=== PATIENT | female | born 1955 | race Caucasian/White ===

== ENCOUNTER → 2016-08-07 | Outpatient (CLI) | payer OTHER ==
[~2016-08-07] MED LIST: AMLO5TAB2 PO; CARVEDILOL
--- OUTSIDE RECORDS SUMMARY | 2016-08-07 11:41 | XMS REPORT | Continuity of Care Document ---
Author Author [facility] Organization [facility] Address Unknown Phone Unavailable Care Team Providers Care Roving Tester Laboratory Name Role Phone Jayashree Howe PCP [phone] Source Comments Some departments are not documenting in the electronic medical record. If you do not see the information that you expected, contact Release of Information in the Health Information Management department at [phone] for further assistance in locating additional records.[facility] Active Allergies and Adverse Reactions No Known [...] Encounters Date Type Specialty Providers Description 08/28/2016 [facility] Aniyah Pearson MD EV (esophageal varices) Encounter [...] Taken Blood Pressure 151/99 06/14/2016 8:19 AM WOOD TECHNOLOGIST Pulse 113 06/14/2016 8:19 AM WOOD TECHNOLOGIST Temperature 36.9 C (98.4 F) 06/14/2016 8:19 AM WOOD TECHNOLOGIST Respiratory Rate 16 06/14/2016 8:19 AM WOOD TECHNOLOGIST Height 1.676 m (5' 6") 06/14/2016 8:19 AM WOOD TECHNOLOGIST Weight 58.242 kg (128 lb 6.4 oz) 06/14/2016 8:19 AM WOOD TECHNOLOGIST Body Mass Index 20.73 06/14/2016 8:19 AM WOOD TECHNOLOGIST Oxygen Saturation 93% 06/14/2016 8:19 AM WOOD TECHNOLOGIST Plan of Care Date Type Specialty Providers Description 08/28/2016 Surgery Sandoval Domínguez MD ESOPHAGOGASTRODUODENOSCOP [address] [place] [address] [phone] (Fax) 12/27/2016 Appointment Hepatology Aniyah Pearson MD [address] [place] [address] [phone] (Fax) Health Maintenance Due Date Last Done Comments Physical (Comprehensive) 1962 Exam Pertussis Vaccine 1965 Tetanus Vaccine 12/07/1971 Cervical Cancer Screening 12/07/1975 Breast Cancer Screening 1994 Colorectal Cancer 2004 Screening Shingles Vaccine 2014 Influenza Vaccine 03/30/2016 Results from Last 3 Months Not on file
--- NOTE | 2016-08-07 15:32 | Diagnostic Imaging Report ---
PROCEDURE: CT abdomen with contrast only. TECHNIQUE: Multiple contiguous axial images were obtained through the abdomen after the administration of intravenous contrast. INDICATION: Chronic hepatitis C with cirrhosis. Lesions seen on 04/11/2016 exam. 100 mL of Omnipaque 350 is administered intravenously. FINDINGS: The lung bases appear unremarkable. Again seen are anterior subcapsular enhancing lesions up to 1.9 cm in segment 8 and 1.2 cm in segment 2, both larger and more prominent compared to 04/11/2016 exam when corresponding measurements were 1.3 and 1.1 cm. These however demonstrate no definite contrast washout and therefore do not have the typical diagnostic criteria for hepatocellular carcinoma based on CT scan. No new enhancing lesion is identified. Again seen is nodular cirrhotic liver. Multiple small gallstones with no evidence of cholecystitis is seen. The spleen is moderately enlarged measuring 15.6 x 5.3 x 9 cm. The pancreas and the adrenal glands appear unremarkable. There are prominent periesophageal varices seen. The portal vein is patent. The abdominal aorta is normal in caliber. No periaortic significantly enlarged lymph nodes are noted. The kidneys have symmetric enhancement and contrast excretion. No hydronephrosis. There is no ascites. No fluid collection in the abdomen is seen. The lumbar spine demonstrates left convexity scoliosis and there are degenerative changes at L5/S1 and at the SI joints bilaterally. IMPRESSION: 1. Hypervascular lesions in segment 2 and segment 8 in anterior subcapsular location appear larger compared to March 2016 exam. These lesions are concerning for HCC, although the CT findings are not characteristic. Correlation with MRI of the liver could be helpful. Also if the AFP is significantly elevated or is rising, then HCC is very likely. 2. Manifestations of cirrhosis, splenomegaly and paraesophageal varices. No ascites. 3. Gallstones. Report faxed to Dr. Katie Wright at 3:25 p.m. 08/07/2016/cb Dictated by: Dictated on workstation # [id number]
== END ==
LOC: RAD 11:38
PROVIDERS: ATTEND Internal Medicine Hematology & Oncology
DX: B18.2 Chronic viral hepatitis C (principal)
CPT/HCPCS: 74160

== ENCOUNTER 2016-08-25 12:06 | Emergency (ER) | payer OTHER ==
[~2016-08-25] VITALS: Ht 167.6 cm; Wt 59.9 kg
--- OUTSIDE RECORDS SUMMARY | 2016-08-25 12:18 | XMS REPORT | Continuity of Care Document ---
Author Author [facility] Organization [facility] Address Unknown Phone Unavailable Care Team Providers Care Ginner Helper Name Role Phone Jayashree Howe PCP [phone] Source Comments Some departments are not documenting in the electronic medical record. If you do not see the information that you expected, contact Release of Information in the Health Information Management department at [phone] for further assistance in locating additional records.[facility] Active Allergies and Adverse Reactions No [...] Encounters Date Type Specialty Providers Description 08/28/2016 [facility] Aniyah Pearson MD EV (esophageal varices) Encounter (HCC) 08/23/2016 Telephone Hepatology Aniyah Pearson MD Procedure 06/14/2016 Office Visit Hepatology Aniyah Pearson MD Essential hypertension (Primary Dx) 06/14/2016 Prep for Case Hepatology Aniyah Pearson MD 06/12/2016 Telephone HepatAniyah Yang MD Patient Reminder Call 06/07/2016 Telephone Hepatology Aniyah Pearsno MD Patient Reminder Call Immunizations Name Dates [...] Taken Blood Pressure 151/99 06/14/2016 8:19 AM REHABILITATION PHYSICIAN Pulse 113 06/14/2016 8:19 AM REHABILITATION PHYSICIAN Temperature 36.9 C (98.4 F) 06/14/2016 8:19 AM REHABILITATION PHYSICIAN Respiratory Rate 16 06/14/2016 8:19 AM REHABILITATION PHYSICIAN Height 1.676 m (5' 6") 06/14/2016 8:19 AM REHABILITATION PHYSICIAN Weight 58.242 kg (128 lb 6.4 oz) 06/14/2016 8:19 AM REHABILITATION PHYSICIAN Body Mass Index 20.73 06/14/2016 8:19 AM REHABILITATION PHYSICIAN Oxygen Saturation 93% 06/14/2016 8:19 AM REHABILITATION PHYSICIAN Plan of Care Date Type Specialty Providers Description 08/28/2016 Surgery Sandoval Domínguez MD ESOPHAGOGASTRODUODENOSCOP [address] [place] [address] [phone] (Fax) 12/27/2016 Appointment Hepatology Aniyah Pearson MD [address] [place] [address] [phone] (Fax) Health Maintenance Due Date Last Done Comments Physical (Comprehensive) 1962 Exam Pertussis Vaccine 1965 Tetanus Vaccine 12/07/1971 Cervical Cancer Screening 12/07/1975 Breast Cancer Screening 1994 Colorectal Cancer 2004 Screening Shingles Vaccine 2014 Influenza Vaccine 03/30/2016 Results from Last 3 Months Not on file
[2016-08-25] MEDS ORDERED: CARVEDILOL (12:20)
--- NOTE | 2016-08-25 12:21 | ED Cardiac General ---
History of Present Illness General Chief Complaint: Cardiac/General Problems Stated Complaint: ELEV BP Source: patient Exam Limitations: no limitations History of Present Illness Time seen by provider: 12:10 Initial Comments Here with report of high blood pressure noted at her cancer doctor visit today. She has hepatitis C and is being evaluated for possible biopsy. She was sent here for further evaluation related to the high blood pressure. Denies chest pain or breathing problems. Denies dizziness. She does feel some heart palpitations. Timing/Duration: 1-3 hours Severity: moderate Location: other (has significant chest pain) Prior CP/Workup: no prior chest pain, no prior cardiac workup Modifying Factors: improves with rest NTG SL ENTRY LEVEL FINANCIAL ANALYST: No ASA po ENTRY LEVEL FINANCIAL ANALYST: No Associated Systoms: No Chest Pain, No Cough, No Fever/Chills, No Nausea/ Vomiting, No Shortness of Air, No Weakness Allergies and Home Medications Allergies Coded Allergies: No Allergy Information Available (Unverified , 04/11/16) Home Medications (Reported) Review of Systems Constitutional: see HPINo chills, No fever EENTM: No Symptoms Reported Respiratory: No Symptoms Reported Cardiovascular: See HPIDenies Chest Pain, Palpitations Gastrointestinal: No Symptoms Reported Genitourinary: No Symptoms Reported Musculoskeletal: no symptoms reported Skin: no symptoms reported Psychiatric/Neurological: No Symptoms Reported Past Kelxcww-Zouogr-Qocdmp Hx Patient Social History Alcohol Use: Past History Recreational Drug Use: No Smoking Status: Never a Smoker Recent Foreign Travel: No Contact w/Someone Who Travel: No Recent Hopitalizations: No Physical Abuse Screen: No Sexual Abuse: No Surgeries HX Surgeries: Yes (dental) Respiratory Hx Respiratory Disorders: No Cardiovascular Hx Cardiac Disorders: Yes Cardiac Disorders: Hypertension Neurological Hx Neurological Disorders: No Genitourinary Hx Genitourinary Disorders: No Gastrointestinal Hx Gastrointestinal Disorders: Yes Gastrointestinal Disorders: Cirrhosis Musculoskeletal Hx Musculoskeletal Disorders: No Endocrine Hx Endocrine Disorders: No HEENT HX ENT Disorders: No Cancer Hx Cancer: No Psychosocial Hx Psychiatric Problems: No Integumentary HX Skin/Integumentary Disorder: No Blood Transfusions Hx Blood Disorders: Yes (HEP C) Adverse Reaction to a Blood Tr: No Reviewed Nursing Assessment Reviewed/Agree w Nursing PMH: Yes Family Medical History Significant Family History: No Pertinent Family Hx Physical Exam Vital Signs Vital Sign - Last 12Hours 08/25/16 12:09 Temp 97.7 Pulse 89 Resp 20 B/P 202/138 Pulse Ox 93 O2 Delivery Room Air Capillary Refill : General Appearance: No Apparent Distress WD/WN HEENT: PERRL/EOMI Pharynx Normal Neck: Non Tender Supple Respiratory: Lungs Clear Normal Breath Sounds Cardiovascular: Regular Rate, Rhythm No Murmur Gastrointestinal: Non Tender Soft Extremity: Non Tender No Calf Tenderness Neurologic/Psychiatric: Alert Oriented x3 Skin: Normal Color Warm/Dry Progress/Results/Core Measures Results/Orders Lab Results Laboratory Tests Test 08/25/16 12:29 Range/Units Alanine Aminotransferase (ALT/SGPT) 36 0-55 U/L Albumin 3.3 3.2-4.5 G/DL Alkaline Phosphatase 160 H 40-136 U/L Anion Gap 8 5-14 MMOL/L Aspartate Amino Transf (AST/SGOT) 77 H 5-34 U/L BUN/Creatinine Ratio 17 Basophils # (Auto) 0.0 0.0-0.1 10^3/uL Basophils (%) (Auto) 1 0-10 % Blood Urea Nitrogen 12 7-18 MG/DL Calcium Level 10.3 H 8.5-10.1 MG/DL Carbon Dioxide Level 23 21-32 MMOL/L Chloride Level 109 H 98-107 MMOL/L Creatinine 0.70 0.60-1.30 MG/DL Eosinophils # (Auto) 0.1 0.0-0.3 10^3/uL Eosinophils (%) (Auto) 2 0-10 % Estimat Glomerular Filtration Rate > 60 Glucose Level 80 70-105 MG/DL Hematocrit 41 35-52 % Hemoglobin 14.5 11.5-16.0 G/DL Lymphocytes # (Auto) 1.1 1.0-4.0 X 10^3 Lymphocytes (%) (Auto) 40 12-44 % Magnesium Level 1.5 L 1.8-2.4 MG/DL Mean Corpuscular Hemoglobin 33 25-34 PG Mean Corpuscular Hemoglobin Concent 35 32-36 G/DL Mean Corpuscular Volume 93 80-99 FL Mean Platelet Volume 11.6 H 7.4-10.4 FL Monocytes # (Auto) 0.5 0.0-1.0 X 10^3 Monocytes (%) (Auto) 16 H 0-12 % Neutrophils # (Auto) 1.1 L 1.8-7.8 X 10^3 Neutrophils (%) (Auto) 40 L 42-75 % Platelet Count 42 L 130-400 10^3/uL Potassium Level 3.4 L 3.6-5.0 MMOL/L Red Blood Count 4.44 4.35-5.85 10^6/uL Red Cell Distribution Width 14.6 H 10.0-14.5 % Sodium Level 140 135-145 MMOL/L Total Bilirubin 2.3 H 0.1-1.0 MG/DL Total Protein 7.9 6.4-8.2 G/DL Troponin I < 0.30 <0.30 NG/ML White Blood Count 2.8 L 4.3-11.0 10^3/uL My Orders Orders-MAX DE SOUZA MD Cbc With Automated Diff (08/25/16 12:18) Comprehensive Metabolic Panel (08/25/16 12:18) Magnesium (08/25/16 12:18) Troponin I (08/25/16 12:18) Saline Lock/Iv-Start (08/25/16 12:18) Ekg Tracing (08/25/16 12:18) Chest 1 View, Ap/Pa Only (08/25/16 12:18) Clonidine Tablet (Catapres Tablet) (08/25/16 12:30) Medications Given in ED Current Medications Medications Dose Ordered Sig/Dany Route Start Time Stop Time Status Last Admin Dose Admin Clonidine HCl 0.1 mg ONCE ONCE PO 08/25/16 12:30 08/25/16 12:31 DC 08/25/16 12:28 0.1 MG Vital Signs/I&O Vital Sign - Last 12Hours 08/25/16 12:09 Temp 97.7 Pulse 89 Resp 20 B/P 202/138 Pulse Ox 93 O2 Delivery Room Air Progress Note : Progress Note Seen and evaluated. IV, labs and EKG ordered. Clonidine 0.1 mg by mouth ordered. Monitor patient. 1341: Blood pressure 124/96 and patient has no adverse effects otherwise. Labs, EKG and chest x-ray reviewed. We will initiate amlodipine 5 mg by mouth daily and she will follow up with her DrSylvia in [place], [place]. Discharged home with return precautions. Patient verbalize understanding instructions and agreement with plan. ECG Initial ECG Impression Date: Aug 25, 2016 Initial ECG Impression Time: 12:25 Initial ECG Rate: 76 Initial ECG Rhythm: Normal Sinus Comment Sinus rhythm with leftward axis. No evidence of ST elevation CA. Flat T waves in the anterior lateral leads. No previous available for comparison. Interpreted by me. Diagnostic Imaging Diagonstic Imaging: Xray Plain Films/CT/US/NM/MRI: chest [facility] [place], [place] NAME: [facility] REC#: [id number] PT STATUS: REG ER : 1955 PHYSICIAN: MAX DE SOUZA MD ADMIT DATE: 08/25/16/ER Draft Date of Exam:08/25/16 CHEST 1 VIEW, AP/PA ONLY INDICATION: Hypertension. Portable chest 12:43 PM. There is scoliosis of the thoracic spine convex to the right. Heart size and pulmonary vascularity are normal. Lungs are clear. There are no effusions or pneumothoraces. IMPRESSION: No acute abnormalities in the chest. Dictated on workstation # [id number] Dict: 08/25/16 1246 Trans: 08/25/16 1248 [id number] Interpreted by: MAX CARSON Electronically signed by: Departure Impression Impression: Primary Impression: Hypertension, essential Disposition: HOME, SELF-CARE Condition: Improved Departure-Patient Inst. Decision time for Depature: 13:45 Referrals: NO,LOCAL PHYSICIAN (PCP/Family) Primary Care Physician Patient Instructions: High Blood Pressure (DC) Add. Discharge Instructions: All discharge instructions reviewed with patient and/or family. Voiced understanding. Take medications as directed. Follow-up with your Dr. on Sunday or Sunday for recheck and further evaluation. Return for worse pain, fever, vomiting, weakness, breathing problems or other concerns as needed. Scripts Amlodipine Besylate 5 Mg Tablet5 Mg PO DAILY #30 TAB Ref 0 Prov:MAX DE SOUZA MD 08/25/16 MAX DE SOUZA MD Aug 25, 2016 12:21
[2016-08-25] MEDS ORDERED: cloNIDine 0.1 MG (CATAPRES) TAB PO ONE (12:30)
[2016-08-25 12:36] LABS: BASOPHILS % (AUTO) 1 % (0-10); EOSINOPHILS # (AUTO) 0.1 10^3/uL (0.0-0.3); EOSINOPHILS % (AUTO) 2 % (0-10); LYMPHOCYTES # (AUTO) 1.1 X 10^3 (1.0-4.0); LYMPHOCYTES % (AUTO) 40 % (12-44); MEAN CORPUSCULAR HEMOGLOBIN 33 PG (25-34); MEAN CORPUSCULAR HGB CONC 35 G/DL (32-36); MEAN CORPUSCULAR VOLUME 93 FL (80-99); MEAN PLATELET VOLUME 11.6 FL (7.4-10.4); MONOCYTES # (AUTO) 0.5 X 10^3 (0.0-1.0); MONOCYTES % (AUTO) 16 % (0-12); NEUTROPHILS # (AUTO) 1.1 X 10^3 (1.8-7.8); NEUTROPHILS % (AUTO) 40 % (42-75); PLATELET COUNT 42 10^3/uL (130-400); RED BLOOD COUNT 4.44 10^6/uL (4.35-5.85); RED CELL DISTRIBUTION WIDTH 14.6 % (10.0-14.5); WHITE BLOOD COUNT 2.8 10^3/uL (4.3-11.0)
--- NOTE | 2016-08-25 12:48 | Diagnostic Imaging Report ---
INDICATION: Hypertension. Portable chest 12:43 PM. There is scoliosis of the thoracic spine convex to the right. Heart size and pulmonary vascularity are normal. Lungs are clear. There are no effusions or pneumothoraces. IMPRESSION: No acute abnormalities in the chest. Dictated by: Dictated on workstation # [id number]
[2016-08-25 12:54] LABS: ALANINE AMINOTRANSFERASE 36 U/L (0-55); ALBUMIN 3.3 G/DL (3.2-4.5); ANION GAP 8 MMOL/L (5-14); ASPARTATE AMINO TRANSFERASE 77 U/L (5-34); BILIRUBIN,TOTAL 2.3 MG/DL (0.1-1.0); BLOOD UREA NITROGEN 12 MG/DL (7-18); BUN/CREATININE RATIO 17; CALCIUM 10.3 MG/DL (8.5-10.1); CARBON DIOXIDE 23 MMOL/L (21-32); CHLORIDE 109 MMOL/L (98-107); GFR ESTIMATED > 60; GLUCOSE 80 MG/DL (70-105); MAGNESIUM 1.5 MG/DL (1.8-2.4); POTASSIUM 3.4 MMOL/L (3.6-5.0); SODIUM 140 MMOL/L (135-145); TOTAL PROTEIN 7.9 G/DL (6.4-8.2)
[2016-08-25 13:00] LABS: TROPONIN I < 0.30 NG/ML (<0.30)
[2016-08-25] MEDS ORDERED: AMLO5TAB2 PO (13:47)
[2016-08-25 13:51] VITALS: BP 123/91
== END 2016-08-25 13:51 | disposition home or self-care (01) ==
LOC: EDUNIT# 12:06 → ER 12:08
DX: I10 Essential (primary) hypertension (principal); B19.20 Unspecified viral hepatitis C without hepatic coma
CPT/HCPCS: 36415; 71010; 80053; 83735; 84484; 85025; 93005

== ENCOUNTER → 2016-08-30 | Outpatient (CLI) | payer OTHER ==
[~2016-08-30] MED LIST changes: +GADOXETATE 2.5 MMOL/10 ML (EOVIST) IV ONE
--- OUTSIDE RECORDS SUMMARY | 2016-08-30 10:30 | XMS REPORT | Continuity of Care Document ---
Author Author [facility] Organization [facility] Address Unknown Phone Unavailable Care Team Providers Care New Product Trainer Name Role Phone Jayashree Howe PCP [phone] Source Comments Some departments are not documenting in the electronic medical record. If you do not see the information that you expected, contact Release of Information in the Health Information Management department at [phone] for further assistance in locating additional records.[facility] Active Allergies and Adverse Reactions No Known [...] Encounters Date Type Specialty Providers Description 08/28/2016 Surgery Sandoval Domínguez MD ESOPHAGOGASTRODUODENOSCOP Y 08/28/2016 Hospital Aniyah Pearson MD EV (esophageal varices) [...] Taken Blood Pressure 151/99 06/14/2016 8:19 AM PAIRER Pulse 113 06/14/2016 8:19 AM PAIRER Temperature 36.9 C (98.4 F) 06/14/2016 8:19 AM PAIRER Respiratory Rate 16 06/14/2016 8:19 AM PAIRER Height 1.676 m (5' 6") 06/14/2016 8:19 AM PAIRER Weight 58.242 kg (128 lb 6.4 oz) 06/14/2016 8:19 AM PAIRER Body Mass Index 20.73 06/14/2016 8:19 AM PAIRER Oxygen Saturation 93% 06/14/2016 8:19 AM PAIRER Plan of Care Date Type Specialty Providers Description 12/27/2016 Appointment Hepatology Aniyah Pearson MD [address] [facility] [address] [place] [address] [phone] (Fax) Health Maintenance Due Date Last Done Comments Physical (Comprehensive) 1962 Exam Pertussis Vaccine 1965 Tetanus Vaccine 12/07/1971 Cervical Cancer Screening 12/07/1975 Breast Cancer Screening 1994 Colorectal Cancer 2004 Screening Shingles Vaccine 2014 Influenza Vaccine 03/30/2016 Results from Last 3 Months Not on file
--- NOTE | 2016-08-30 14:20 | Diagnostic Imaging Report ---
PROCEDURE: MR imaging abdomen with and without contrast. TECHNIQUE: Multiplanar, multisequence MR imaging of the abdomen was performed with and without contrast. INDICATION: Hepatitis C. Cirrhosis. 6 mL of Eovist is administered intravenously. Alpha-fetoprotein is rising from 21.1 in February 2016 to 44.8 on August 07, 2016. Correlation with CT scan from August 07, 2016 is reviewed. FINDINGS: There is liver cirrhosis. There is a hypervascular lesion measuring 1.6 cm in the left hepatic lobe seen on the arterial phase with no associated washout seen on the delayed phase images. The other lesion seen on CT scan of the right hepatic lobe is not visualized on the current exam. There is nonspecific mild heterogeneous abnormal signal seen within the liver with no significant correlating T2 signal abnormality at the location of the abdominal areas of enhancement seen. The liver has nodularity and diffuse slightly heterogeneous signal, particularly on T2-weighted images without a discrete mass. There is no significant fatty infiltration seen. The spleen is 15.8 cm in length, [id number] splenomegaly. There are prominent paraesophageal and other upper abdominal varices. The pancreas and adrenal glands appear unremarkable. Symmetric enhancement of the kidneys is seen. There is a small cyst in the left kidney with no enhancing mass. There is scoliosis of the lumbar spine. No suspicious marrow signal abnormality is seen. The abdominal aorta is normal in caliber with no para-aortic significantly enlarged lymph nodes. There are multiple gallstones identified with no evidence of cholecystitis. IMPRESSION: 1. Nonspecific hyperenhancing lesion in the left lower lobe anteriorly, less than 2 cm in size, is seen only on the early arterial phase. The second lesion seen on CT scan is not visible MRI. The findings are equivocal and may relate to focal vascular perfusional variations. Close monitoring with followup liver mass protocol CT and AFP in 2-3 months is recommended. 2. Splenomegaly, cirrhosis, and upper abdominal varices. No significant ascites. Dictated by: Dictated on workstation # [id number]
--- NOTE | 2016-08-30 14:25 | Diagnostic Imaging Report ---
Transabdominal and transvaginal pelvic ultrasound. INDICATION: Follow-up right ovarian cyst. COMPARISON: 04/17/2016. FINDINGS: The uterus is 6.7 x 5.4 x 3.6 cm. There is an anterior myometrial fibroid at the level of the fundus measuring 0.8 x 0.8 x 0.5 cm similar to the prior exam. In the endometrium in the fundal region there is a 0.8 x 0.8 x 0.4 cm hyperechoic smoothly-marginated lesion with surrounding fluid noted. This is similar to 04/17/2016 exam findings. The endometrial lining otherwise is about 0.2 cm in thickness. The right ovary is 2.7 x 3.6 x 2.1 cm in size. Again seen is a 3.2 x 1.9 x 1.2 cm cyst. Surrounding arterial and venous waveforms in the ovarian tissue seen. The left ovary is obscured by bowel gas. IMPRESSION: 1. An 8 mm echogenic mass in the fundal area of the endometrium with surrounding fluid similar to 04/17/2016 study is favored to be a polyp rather than malignancy related. Gynecologic evaluation and follow-up studies suggested. 2. Anterior small myometrial fibroid. 3. A 3.2 cm simple-appearing right ovarian cystic lesion with no solid mass identified. Dictated by: Dictated on workstation # [id number]
== END ==
LOC: RAD 10:27
PROVIDERS: ATTEND Internal Medicine Hematology & Oncology
DX: R16.0 Hepatomegaly, not elsewhere classified (principal); B18.2 Chronic viral hepatitis C
CPT/HCPCS: 74183; 76830; 76856

== ENCOUNTER → 2016-09-04 | Outpatient (CLI) | payer OTHER ==
[~2016-09-04] MED LIST changes: -GADOXETATE 2.5 MMOL/10 ML (EOVIST) IV ONE
--- OUTSIDE RECORDS SUMMARY | 2016-09-04 08:31 | XMS REPORT | Continuity of Care Document ---
Author Author [facility] Organization [facility] Address Unknown Phone Unavailable Care Team Providers Care Custom Framing Specialist Name Role Phone Jayashree Howe PCP [phone] Source Comments Some departments are not documenting in the electronic medical record. If you do not see the information that you expected, contact Release of Information in the Health Information Management department at [phone] for further assistance in locating additional records.[facility] [...] Recent Encounters Date Type Specialty Providers Description 08/31/2016 Hospital Aniyah Pearson MD EV (esophageal varices) Encounter (HCC) 08/28/2016 Surgery Sandoval Domínguez MD Canceled ESOPHAGOGASTRODUODENOSCOP Y 08/23/2016 Telephone Hepatology Aniyah Pearson MD Procedure [...] Taken Blood Pressure 151/99 06/14/2016 8:19 AM SENIOR INFORMATION DEVELOPER Pulse 113 06/14/2016 8:19 AM SENIOR INFORMATION DEVELOPER Temperature 36.9 C (98.4 F) 06/14/2016 8:19 AM SENIOR INFORMATION DEVELOPER Respiratory Rate 16 06/14/2016 8:19 AM SENIOR INFORMATION DEVELOPER Height 1.676 m (5' 6") 06/14/2016 8:19 AM SENIOR INFORMATION DEVELOPER Weight 58.242 kg (128 lb 6.4 oz) 06/14/2016 8:19 AM SENIOR INFORMATION DEVELOPER Body Mass Index 20.73 06/14/2016 8:19 AM SENIOR INFORMATION DEVELOPER Oxygen Saturation 93% 06/14/2016 8:19 AM SENIOR INFORMATION DEVELOPER Plan of Care Date Type Specialty Providers Description 12/27/2016 Appointment Hepatology Aniyah Pearson MD [address] [facility] [address] [place] [address] [phone] (Fax) Health Maintenance Due Date Last Done Comments Physical (Comprehensive) 1961 Exam Pertussis Vaccine 1965 Tetanus Vaccine 12/07/1971 Cervical Cancer Screening 12/07/1975 Breast Cancer Screening 1994 Colorectal Cancer 2004 Screening Shingles Vaccine 2014 Influenza Vaccine 03/30/2016 Results from Last 3 Months Not on file
--- NOTE | 2016-09-04 10:55 | Diagnostic Imaging Report ---
Ultrasound of the liver. INDICATION: Liver lesions seen on CT scan of 08/07/2016. Subsequent MRI demonstrates no definitive correlating mass and suggested perfusional abnormalities. FINDINGS: Nodular cirrhotic liver is noted. There is no definite mass identified in the liver. The CBD is 4 mm in caliber. Multiple gallstones are seen with no gallbladder wall thickening or pericholecystic fluid noted. The pancreas is mostly obscured. The right kidney is 11 cm in length with no hydronephrosis or focal lesion. No fluid collection in the upper right abdomen seen. IMPRESSION: Liver cirrhosis. No focal masses are identified. The lesions noted on CT scan are possibly related to perfusional variance and shunting. Short-term followup study in two months with liver mass protocol CT scan is recommended. Dictated by: Dictated on workstation # [id number]
== END ==
LOC: RAD 08:27
PROVIDERS: ATTEND Internal Medicine Hematology & Oncology
DX: R16.0 Hepatomegaly, not elsewhere classified (principal)
CPT/HCPCS: 76705

== ENCOUNTER → 2016-10-27 | Outpatient (CLI) | payer OTHER ==
[~2016-10-27] MED LIST changes: +CATHETER FLUSH 10 ML SYR IV PRN; +IOHEXOL 350 MG/ML 100 ML (OMNIPAQUE 350) VIAL IV ONE; +NS 100 ML (IVPB) BAG IV ONE; +NS 50 ML (IVPB) BAG IV ONE
--- NOTE | 2016-10-27 12:20 | Diagnostic Imaging Report ---
PROCEDURE: CT abdomen and pelvis with contrast. TECHNIQUE: Multiple contiguous axial images were obtained through the abdomen and pelvis after administration of intravenous contrast. INDICATION: Cirrhosis. Followup liver lesions. COMPARISON: 08/07/2016. FINDINGS: Included views of the lung bases are unremarkable. CT ABDOMEN: Cirrhotic morphology to the liver is again identified. There are two subcapsular hyperenhancing lesions. The larger lesion is identified near the junction of segments 4A and 8. It measures approximately 1.4 x 2 cm. This has not significantly changed compared to 1.5 x 1.9 cm previously. The second hyperenhancing subcapsular nodular lesion is identified within the lateral margins of segment 2 of the liver near its junction with segment 3. It measures approximately 1.4 cm in diameter. This may be slightly increased in size compared to 1.2 cm previously. No new enhancing hepatic mass type lesions are seen. Portal vein is patent. Note is made of cholelithiasis. Spleen is enlarged. No focal splenic lesions are identified. Multiple gastroesophageal varices are present. The adrenal glands have a normal appearance. Benign appearing bilateral renal cysts are noted. Otherwise, the kidneys have normal appearance as well. Pancreas is unremarkable. Small bowel loops are nondistended. There is no appendicitis. There is no loculated fluid collection, free fluid or free air within the abdomen. No abnormal mesenteric or retroperitoneal adenopathy is seen. Bony structures show no acute abnormalities. CT PELVIS: Urinary bladder is grossly unremarkable. There is no loculated fluid collection, free fluid or free air within the pelvis. Prominent right ovarian follicles are noted. No abnormal adenopathy is seen. Bony structures show no acute abnormalities. IMPRESSION: 1. Hepatic cirrhosis. 2. Two subcapsular hyperenhancing lesions within the liver as described above. The larger lesion shows no significant change. There may be perhaps slight interval increase in size of the smaller lesion. Continued short interval followup is recommended. 3. Sequela of portal venous hypertension including splenomegaly and gastroesophageal varices. 4. Cholelithiasis. Dictated by: Dictated on workstation # [id number]
== END ==
LOC: RAD 11:00
PROVIDERS: ATTEND Internal Medicine Hematology & Oncology
DX: R16.0 Hepatomegaly, not elsewhere classified (principal); N94.9 Unspecified condition associated with female genital organs and menstrual cycle; K74.60 Unspecified cirrhosis of liver; K76.6 Portal hypertension; I85.10 Secondary esophageal varices without bleeding; I86.4 Gastric varices; K80.20 Calculus of gallbladder without cholecystitis without obstruction
CPT/HCPCS: 74177

== ENCOUNTER 2016-10-30 13:58 | Outpatient (RCR) | payer OTHER ==
--- OUTSIDE RECORDS SUMMARY | 2016-08-07 10:51 | XMS REPORT | Continuity of Care Document ---
Author Author [facility] Organization [facility] Address Unknown Phone Unavailable Care Team Providers Care Groundskeeper Supervisor Name Role Phone Jayashree Howe PCP [phone] Source Comments Some departments are not documenting in the electronic medical record. If you do not see the information that you expected, contact Release of Information in the Health Information Management department at [phone] for further assistance in locating additional records.[facility] Active Allergies and Adverse Reactions No Known Allergies Current Medications Prescription Sig. Disp. Refills Start End Date Status Date amoxicillin/K clavulanate Take 1 Tab by mouth twice 47 Tab 0 02/29/20 Active (AUGMENTIN) 875/125 mg daily with meals. Take 16 tablet with food. acetaminophen (TYLENOL) Take 2 Tabs by mouth 0 02/29/20 Active 325 mg tablet every 4 hours as needed 16 for Pain. carvedilol (COREG) 25 mg Take 1 Tab by mouth 30 Tab 3 06/14/20 Active tablet daily. Take with food. 16 Active Problems Problem Noted Date Severe sepsis (HCC) 02/21/2016 Osteomyelitis of mandible 02/21/2016 Thrombocytopenia (HCC) 02/21/2016 Alcoholic cirrhosis of liver without ascites (HCC) 02/21/2016 Most Recent Encounters Date Type Specialty Providers Description 08/28/2016 [facility] Aniyah Pearson MD EV (esophageal varices) Encounter (HCC) 06/14/2016 Office Visit Hepatology Aniyah Pearson MD Essential hypertension (Primary Dx) 06/14/2016 Prep for Case Hepatology Aniyah Pearson MD 06/12/2016 Telephone Hepatology Aniyah Pearson MD Patient Reminder Call 06/07/2016 Telephone Hepatology Aniyah Pearson MD Patient Reminder Call Immunizations Name Dates Previously Given Next Due Pneumococcal Vaccine 02/23/2016 (23-Rosemary Adult) Social History Tobacco Use Types Packs/Day Years Used Date Never Smoker Alcohol Use Drinks/Week oz/Week Comments Yes 0 Standard 0.0 Currently 6 shots per week. She also had history drinks or of alcohol dependece in the past. Drinking up to equivalent half gallon per day now. Last Filed Vital Signs Vital Sign Reading Time Taken Blood Pressure 151/99 06/14/2016 8:19 AM ELECTRICIAN SECOND Pulse 113 06/14/2016 8:19 AM ELECTRICIAN SECOND Temperature 36.9 C (98.4 F) 06/14/2016 8:19 AM ELECTRICIAN SECOND Respiratory Rate 16 06/14/2016 8:19 AM ELECTRICIAN SECOND Height 1.676 m (5' 6") 06/14/2016 8:19 AM ELECTRICIAN SECOND Weight 58.242 kg (128 lb 6.4 oz) 06/14/2016 8:19 AM ELECTRICIAN SECOND Body Mass Index 20.73 06/14/2016 8:19 AM ELECTRICIAN SECOND Oxygen Saturation 93% 06/14/2016 8:19 AM ELECTRICIAN SECOND Plan of Care Date Type Specialty Providers Description 08/28/2016 Surgery Sandoval Domínguez MD ESOPHAGOGASTRODUODENOSCOP [address] [place] [address] [phone] (Fax) 12/27/2016 Appointment Hepatology Aniyah Pearson MD [address] [place] [address] [phone] (Fax) Health Maintenance Due Date Last Done Comments Physical (Comprehensive) 1962 Exam Pertussis Vaccine 1965 Tetanus Vaccine 12/07/1971 Cervical Cancer Screening 12/07/1975 Breast Cancer Screening 1994 Colorectal Cancer 2004 Screening Shingles Vaccine 2014 Influenza Vaccine 03/30/2016 Results from Last 3 Months Not on file
[2016-08-07 11:38] LABS: BASOPHILS % (AUTO) 1 % (0-10); EOSINOPHILS % (AUTO) 2 % (0-10); LYMPHOCYTES # (AUTO) 1.1 X 10^3 (1.0-4.0); LYMPHOCYTES % (AUTO) 44 % (12-44); MEAN CORPUSCULAR HEMOGLOBIN 32 PG (25-34); MEAN CORPUSCULAR HGB CONC 35 G/DL (32-36); MEAN CORPUSCULAR VOLUME 93 FL (80-99); MEAN PLATELET VOLUME 11.8 FL (7.4-10.4); MONOCYTES # (AUTO) 0.5 X 10^3 (0.0-1.0); MONOCYTES % (AUTO) 19 % (0-12); NEUTROPHILS # (AUTO) 0.9 X 10^3 (1.8-7.8); NEUTROPHILS % (AUTO) 35 % (42-75); RED BLOOD COUNT 4.19 10^6/uL (4.35-5.85); RED CELL DISTRIBUTION WIDTH 15.6 % (10.0-14.5); WHITE BLOOD COUNT 2.5 10^3/uL (4.3-11.0)
[2016-08-07 11:39] LABS: PLATELET COUNT 35 10^3/uL (130-400)
[2016-08-07 12:08] LABS: ALANINE AMINOTRANSFERASE 28 U/L (0-55); ALBUMIN 3.2 G/DL (3.2-4.5); ANION GAP 6 MMOL/L (5-14); ASPARTATE AMINO TRANSFERASE 62 U/L (5-34); BILIRUBIN,TOTAL 2.3 MG/DL (0.1-1.0); BLOOD UREA NITROGEN 10 MG/DL (7-18); BUN/CREATININE RATIO 13; CARBON DIOXIDE 25 MMOL/L (21-32); CHLORIDE 109 MMOL/L (98-107); CREATININE SERUM 0.76 MG/DL (0.60-1.30); GFR ESTIMATED > 60; GLUCOSE 96 MG/DL (70-105); SODIUM 140 MMOL/L (135-145); TOTAL PROTEIN 7.3 G/DL (6.4-8.2)
[2016-10-23 10:39] LABS: BASOPHILS % (AUTO) 1 % (0-10); EOSINOPHILS # (AUTO) 0.1 10^3/uL (0.0-0.3); EOSINOPHILS % (AUTO) 2 % (0-10); LYMPHOCYTES # (AUTO) 1.3 X 10^3 (1.0-4.0); LYMPHOCYTES % (AUTO) 42 % (12-44); MEAN CORPUSCULAR HEMOGLOBIN 32 PG (25-34); MEAN CORPUSCULAR HGB CONC 35 G/DL (32-36); MEAN CORPUSCULAR VOLUME 92 FL (80-99); MEAN PLATELET VOLUME 11.7 FL (7.4-10.4); MONOCYTES # (AUTO) 0.6 X 10^3 (0.0-1.0); MONOCYTES % (AUTO) 21 % (0-12); NEUTROPHILS # (AUTO) 1.1 X 10^3 (1.8-7.8); NEUTROPHILS % (AUTO) 35 % (42-75); PLATELET COUNT 42 10^3/uL (130-400); RED CELL DISTRIBUTION WIDTH 15.2 % (10.0-14.5); WHITE BLOOD COUNT 3.1 10^3/uL (4.3-11.0)
[2016-10-23 10:48] LABS: INR 1.3 (0.8-1.4); PROTHROMBIN TIME PATIENT 15.6 SEC (12.2-14.7)
[2016-10-23 11:03] LABS: ALANINE AMINOTRANSFERASE 34 U/L (0-55); ANION GAP 4 MMOL/L (5-14); ASPARTATE AMINO TRANSFERASE 72 U/L (5-34); BILIRUBIN,TOTAL 2.2 MG/DL (0.1-1.0); BLOOD UREA NITROGEN 10 MG/DL (7-18); BUN/CREATININE RATIO 13; CALCIUM 10.4 MG/DL (8.5-10.1); CARBON DIOXIDE 27 MMOL/L (21-32); CHLORIDE 109 MMOL/L (98-107); CREATININE SERUM 0.78 MG/DL (0.60-1.30); GFR ESTIMATED > 60; GLUCOSE 86 MG/DL (70-105); POTASSIUM 4.1 MMOL/L (3.6-5.0); SODIUM 140 MMOL/L (135-145); TOTAL PROTEIN 7.2 G/DL (6.4-8.2)
[~2016-10-30 13:58] MED LIST changes: -NS 50 ML (IVPB) BAG IV ONE
== END 2016-11-05 | disposition home or self-care (01) ==
LOC: ONC 13:58
PROVIDERS: ATTEND Internal Medicine Hematology & Oncology
DX: D69.59 Other secondary thrombocytopenia (principal); E83.52 Hypercalcemia; F10.20 Alcohol dependence, uncomplicated; B18.2 Chronic viral hepatitis C; R16.0 Hepatomegaly, not elsewhere classified; Z79.899 Other long term (current) drug therapy
CPT/HCPCS: 36415; 80053; 82105; 85025; 85610; 99213

== ENCOUNTER 2016-11-14 07:27 | Day surgery (SDC) | payer OTHER ==
[2016-11-14] VITALS (13 sets, daily range): BP systolic 100–132; BP diastolic 65–94
[~2016-11-14] VITALS: Ht 167.6 cm; Wt 59.9 kg
[~2016-11-14 07:27] MED LIST changes: -CATHETER FLUSH 10 ML SYR IV PRN; -IOHEXOL 350 MG/ML 100 ML (OMNIPAQUE 350) VIAL IV ONE; -NS 100 ML (IVPB) BAG IV ONE
[2016-11-14 07:56] LABS: RED BLOOD COUNT 4.61 10^6/uL (4.35-5.85); RED CELL DISTRIBUTION WIDTH 14.1 % (10.0-14.5); WHITE BLOOD COUNT 3.5 10^3/uL (4.3-11.0)
[2016-11-14 08:12] LABS: INR 1.2 (0.8-1.4); PROTHROMBIN TIME PATIENT 14.9 SEC (12.2-14.7)
[2016-11-14] MEDS ORDERED: fentaNYL INJECTION 100 MCG/2 ML AMP ONE (08:23)
[2016-11-14] MEDS ORDERED: LIDOCAINE 1% INJ 20 ML (XYLOCAINE) VIAL ONE (08:23)
[2016-11-14] MEDS ORDERED: LIDOCAINE 1% INJ 20 ML (XYLOCAINE) VIAL INJ ONE (08:45)
[2016-11-14] MEDS ORDERED: fentaNYL INJECTION 100 MCG/2 ML AMP IVP ONE (08:45)
--- NOTE | 2016-11-14 09:40 | Pre-Procedure Progress Note ---
Pre-Procedure Progress Note H&P Reviewed The H&P was reviewed, patient examined and no changes noted. Date H&P Reviewed: Nov 14, 2016 Time H&P Reviewed: 08:50 Pre-Procedure Diagnosis: liver masses, cirrhosis URIAH RICKETTS MD Nov 14, 2016 09:40
[2016-11-14] MEDS ORDERED: HYDROcodone/APAP 5 MG/325 MG (LORTAB) TAB PO PRN (09:45)
--- NOTE | 2016-11-14 11:06 | Diagnostic Imaging Report ---
EXAMINATION: CT-guided biopsy-liver. INDICATION: Liver cirrhosis with the enhancing lesions. Current history and physical and other medical records are reviewed prior to the procedure. CONSENT: Informed consent was obtained from the patient. The risks, benefits, potential complications and alternatives were reviewed and all questions answered to the patient's satisfaction. The patient's vital signs, cardiac rhythm, and pulse oximetry were observed throughout the procedure by qualified nursing personnel. Sedation/medications: none. FINDINGS: Liver mass. Background liver cirrhosis seen. PROCEDURE: After maximal sterile barrier technique preparation and draping, 1% lidocaine was utilized for local anesthesia. With the patient in supine position, and via anterior subxiphoid approach, a 19-gauge guide needle is introduced into the left hepatic lobe mass under CT scan guidance. After confirming adequate positioning with saved CT images, multiple 20 gauge core biopsy specimens were obtained. Gelfoam injected in the tract as the guide needle was removed The patient tolerated the procedure well with no immediate complications. IMPRESSION: Successful CT-guided biopsy of left hepatic mass. Dictated by: Dictated on workstation # [id number]
== END 2016-11-14 13:25 | disposition home or self-care (01) ==
LOC: RAD 07:27
PROVIDERS: ATTEND Internal Medicine Hematology & Oncology
DX: C22.8 Malignant neoplasm of liver, primary, unspecified as to type (principal); K70.30 Alcoholic cirrhosis of liver without ascites; B18.2 Chronic viral hepatitis C; D69.59 Other secondary thrombocytopenia; F10.20 Alcohol dependence, uncomplicated; I10 Essential (primary) hypertension
CPT/HCPCS: 36415; 77012; 85027; 85610; 85730; 86900; 86901; 88307; 88313

== ENCOUNTER 2016-12-14 14:12 | Outpatient (RCR) | payer OTHER ==
[2016-12-14 14:48] LABS: BASOPHILS % (AUTO) 0 % (0-10); EOSINOPHILS # (AUTO) 0.2 10^3/uL (0.0-0.3); EOSINOPHILS % (AUTO) 3 % (0-10); LYMPHOCYTES # (AUTO) 1.2 X 10^3 (1.0-4.0); LYMPHOCYTES % (AUTO) 20 % (12-44); MEAN CORPUSCULAR HEMOGLOBIN 32 PG (25-34); MEAN CORPUSCULAR HGB CONC 35 G/DL (32-36); MEAN CORPUSCULAR VOLUME 91 FL (80-99); MEAN PLATELET VOLUME 11.9 FL (7.4-10.4); MONOCYTES # (AUTO) 0.4 X 10^3 (0.0-1.0); MONOCYTES % (AUTO) 7 % (0-12); NEUTROPHILS % (AUTO) 70 % (42-75); PLATELET COUNT 50 10^3/uL (130-400); RED BLOOD COUNT 4.47 10^6/uL (4.35-5.85); RED CELL DISTRIBUTION WIDTH 13.8 % (10.0-14.5); WHITE BLOOD COUNT 5.8 10^3/uL (4.3-11.0)
[2016-12-14 15:09] LABS: ALANINE AMINOTRANSFERASE 29 U/L (0-55); ANION GAP 6 MMOL/L (5-14); ASPARTATE AMINO TRANSFERASE 55 U/L (5-34); BILIRUBIN,TOTAL 2.5 MG/DL (0.1-1.0); BLOOD UREA NITROGEN 14 MG/DL (7-18); BUN/CREATININE RATIO 18; CALCIUM 10.7 MG/DL (8.5-10.1); CARBON DIOXIDE 21 MMOL/L (21-32); CHLORIDE 109 MMOL/L (98-107); CREATININE SERUM 0.77 MG/DL (0.60-1.30); GFR ESTIMATED > 60; GLUCOSE 78 MG/DL (70-105); POTASSIUM 3.7 MMOL/L (3.6-5.0); SODIUM 136 MMOL/L (135-145); TOTAL PROTEIN 7.2 G/DL (6.4-8.2)
== END 2017-03-14 | disposition home or self-care (01) ==
LOC: ONC 14:12
PROVIDERS: ATTEND Internal Medicine Hematology & Oncology
DX: D69.59 Other secondary thrombocytopenia (principal); E83.52 Hypercalcemia; F10.20 Alcohol dependence, uncomplicated; B18.2 Chronic viral hepatitis C; R16.0 Hepatomegaly, not elsewhere classified; Z79.899 Other long term (current) drug therapy
CPT/HCPCS: 36415; 80053; 82105; 85025; 99213

== ENCOUNTER → 2017-01-31 | Outpatient (CLI) | payer OTHER ==
--- NOTE | 2017-01-31 15:45 | Diagnostic Imaging Report ---
INDICATION: History of endometrial mass and ovarian cyst. TECHNIQUE: Multiple real time sumner scale sonographic images were obtained of the pelvis transabdominally and endovaginally. CORRELATION STUDY: 08/30/2016. FINDINGS: UTERUS/ENDOMETRIUM: Uterus measures 6.4 x 4.5 x 3.2 cm. Endometrial thickness is 7 mm. Area of heterogeneity anteriorly, while incompletely characterized, favors probable small fibroid measuring 8 x 6 x 6 mm. It was not demonstrated on prior imaging. The previously noted questionable polyp about the endometrial canal on prior study is not suggested currently. RIGHT OVARY: 4.0 x 2.4 x 2.1 cm. LEFT OVARY: Unable to be visualized. There is a hypoechoic mass, most compatible with a cyst, of the right ovary; largest at 1.8 x 1.8 cm. Previously, cyst measured up to 3.2 cm in maximum size. Vascular flow is demonstrated to the right ovary. No significant free pelvic fluid. IMPRESSION: 1. Probable small fibroid uterus. 2. Previously suggested endometrial polyp is not appreciated on the current study. Endometrial thickness is within normal limits for premenopausal patient. 3. Nearly 2 cm right ovarian cyst. Dictated by: Dictated on workstation # [id number]
== END ==
LOC: RAD 11:47
PROVIDERS: ATTEND Obstetrics & Gynecology
DX: N83.201 Unspecified ovarian cyst, right side (principal)
CPT/HCPCS: 76830; 76856

== ENCOUNTER 2018-06-01 15:00 | Inpatient (IN) | payer OTHER ==
[~2018-06-01] VITALS: Ht 167.6 cm; Wt 46.1 kg
[~2018-06-01 15:00] MED LIST changes: -AMLO5TAB2 PO; +AMLO5TAB7 PO
[2018-06-01] MEDS ORDERED: NS IV 1000 ML 1,000 ML IV ONE (15:29)
[2018-06-01 15:34] LABS: BASOPHILS % (AUTO) 0 % (0-10); EOSINOPHILS % (AUTO) 0 % (0-10); HEMATOCRIT 44 % (35-52); HEMOGLOBIN 15.6 G/DL (11.5-16.0); LYMPHOCYTES # (AUTO) 1.3 X 10^3 (1.0-4.0); LYMPHOCYTES % (AUTO) 10 % (12-44); MEAN CORPUSCULAR HEMOGLOBIN 34 PG (25-34); MEAN CORPUSCULAR HGB CONC 36 G/DL (32-36); MEAN CORPUSCULAR VOLUME 95 FL (80-99); MEAN PLATELET VOLUME 12.6 FL (7.4-10.4); MONOCYTES % (AUTO) 15 % (0-12); NEUTROPHILS # (AUTO) 9.8 X 10^3 (1.8-7.8); NEUTROPHILS % (AUTO) 75 % (42-75); PLATELET COUNT 55 10^3/uL (130-400); RED BLOOD COUNT 4.59 10^6/uL (4.35-5.85); RED CELL DISTRIBUTION WIDTH 13.6 % (10.0-14.5); WHITE BLOOD COUNT 13.1 10^3/uL (4.3-11.0)
[2018-06-01 15:48] LABS: INR 1.2 (0.8-1.4); PROTHROMBIN TIME PATIENT 15.1 SEC (12.2-14.7)
--- NOTE | 2018-06-01 15:51 | Diagnostic Imaging Report ---
Indication: Dyspnea with fever, nausea and vomiting, cough. Comparison: 08/25/2016. Discussion: Two views of the chest were obtained. Accentuated thoracic kyphosis is stable. Pulmonary hyperinflation is stable. Underlying pulmonary artery hypertension is stable. Stable normal heart size. Dextroscoliosis of the thoracic spine is stable. No focal consolidation, pleural fluid or pneumothorax. Impression: Stable chronic changes as discussed. No acute cardiopulmonary process. Dictated by: Dictated on workstation # [id number]
[2018-06-01 15:53] LABS: ALBUMIN 3.9 GM/DL (3.2-4.5); BILIRUBIN,TOTAL 3.2 MG/DL (0.1-1.0); CALCIUM 12.5 MG/DL (8.5-10.1); CREATININE SERUM 1.09 MG/DL (0.60-1.30); POTASSIUM 3.6 MMOL/L (3.6-5.0); TOTAL PROTEIN 8.4 GM/DL (6.4-8.2)
[2018-06-01 16:30] LABS: CLARITY,URINE VERY CLOUDY; COLOR,URINE AMBER; GLUCOSE, URINE (UA) NEGATIVE (NEGATIVE); KETONES,URINE 1+ (NEGATIVE); LEUKOCYTE ESTERASE ,URINE 3+ (NEGATIVE); NITRITE,URINE POSITIVE (NEGATIVE); PH,URINE 5 (5-9); PROTEIN,URINE 3+ (NEGATIVE); UROBILINOGEN,URINE 8 MG/DL (NORMAL)
[2018-06-01 17:00] LABS: BACTERIA,URINE MODERATE /HPF; RENAL EPITHELIAL CELLS,URINE 0-2 /HPF
[2018-06-01 17:01] LABS: GRANULAR CASTS,URINE RARE /LPF; HYALINE CASTS, URINE 0-2 /LPF; YEAST,URINE MODERATE /HPF
[2018-06-01] MEDS ORDERED: cefTRIAXone FOR IV USE 1,000 MG in NS (IVPB) 50 ML IV ONE (17:30)
--- NOTE | 2018-06-01 18:00 | ED General ---
General Chief Complaint: Respiratory Problems Stated Complaint: LOW OXYGEN,TROUBLE BREATHING,SENT FROM URGENT CARE Nursing Triage Note: PATIENT AMBULATORY TO ER WITH SON, COMPLAINING OF SHORTNESS OF BREATH, N/V, FEVER, BODY ACHES, AND COUGH THAT BEGAN SUNDAY. PATIENT WAS SEEN AT [facility] TODAY AND WAS SENT TO ER DUE TO LOW OXYGEN SATURATIONS. PATIENT'S OXYGEN SATURATION WAS 89% ON ROOM AIR WHEN SHE ARRIVED IN ER. PATIENT STATES COUGH IS NON-PRODUCTIVE. SHE HAS BEEN HAVING FEVERS OF 102*. Nursing Sepsis Screen: Possible Sepsis Risk Source of Information: Patient Exam Limitations: No Limitations History of Present Illness Date Seen by Provider: Jun 01, 2018 Time Seen by Provider: 15:05 Initial Comments This 62-year-old woman presents to the emergency room complaining of nausea, vomiting, diarrhea, generalized soreness including in the chest and mouth, fever , and shortness of breath for approximately 4 days. She was seen at the [place] [facility] and evaluation in the emergency room was recommended. Patient 's family decided to bring her to [facility] for further assessment. She has a nonproductive cough and a fever of 102. Oxygen saturation was noted be a 89 and 90 percent on assessment. She is not wheezing. She is noted to be tachycardic. Patient states she has a history of hepatitis C which was successfully treated and history of liver cancer which has not yet been treated. She states she is awaiting insurance before starting treatment for cancer. Allergies and Home Medications Allergies Coded Allergies: No Known Drug Allergies (Unverified , 11/14/16) Home Medications Amlodipine Besylate 5 Mg Tablet, 5 MG PO DAILY Prescribed by: MAX DE SOUZA on 08/25/16 3557 Patient Home Medication List Home Medication List Reviewed: Yes Review of Systems Review of Systems Constitutional: see HPI, fever EENTM: no symptoms reported Respiratory: see HPI Cardiovascular: see HPI Gastrointestinal: see HPI Genitourinary: no symptoms reported : No Musculoskeletal: see HPI Skin: no symptoms reported Psychiatric/Neurological: No Symptoms Reported Hematologic/Lymphatic: No Symptoms Reported Immunological/Allergic: no symptoms reported Past Zoeansl-Rzgfdi-Klfoqk Hx Patient Social History Alcohol Use: Past History Recreational Drug Use: No Smoking Status: Never a Smoker 2nd Hand Smoke Exposure: No Recent Foreign Travel: No Contact w/Someone Who Travel: No Recent Infectious Disease Expo: No Recent Hopitalizations: No Seasonal Allergies Seasonal Allergies: No Past Medical History Surgeries: Yes (dental) Respiratory: No Cardiac: Yes Hypertension Neurological: No : No Genitourinary: No Gastrointestinal: Yes Hepatitis (treated), Cirrhosis Musculoskeletal: Yes Scoliosis Endocrine: No Cancer: Yes Liver Did You Recieve Any Treatments: No Psychosocial: No Integumentary: No Blood Disorders: Yes (HEP C) Adverse Reaction/Blood Tranf: No Family Medical History No Pertinent Family Hx Physical Exam-Suspected Sepsis Physical Exam Vital Signs Vital Signs - First Documented 06/01/18 15:01 Temp 102.2 Pulse 113 Resp 20 B/P (MAP) 132/95 (107) Pulse Ox 89 O2 Delivery Room Air O2 Flow Rate 2.00 Capillary Refill : Less Than 3 Seconds Blood Pressure Mean: 107 Height, Weight, BMI Height: 5'6.00" Weight: 120lbs. 0.0oz. 54.123769po; 21.3 BMI Method:Stated General Appearance: No Apparent Distress, WD/WN HEENT: PERRL/EOMI, Normal ENT Inspection, Other (oropharynx somewhat dry) Neck: Normal Inspection Respiratory: No Accessory Muscle Use, No Respiratory Distress, Crackles (left base), Decreased Breath Sounds Cardiovascular: No Edema, No Murmur, Tachycardia Gastrointestinal: Normal Bowel Sounds, Non Tender, Soft Extremity: Normal Inspection, No Pedal Edema Neurologic/Psychiatric: Alert, Oriented x3, No Motor/Sensory Deficits, Normal Mood/Affect, gm video II-XII Norm as Tested Skin: normal color, warm/dry Focused Exam Lactate Level 06/01/18 15:22: Lactic Acid Level 1.97 Lactic Acid Level Laboratory Tests Test 06/01/18 15:22 Lactic Acid Level 1.97 MMOL/L (0.50-2.00) Progress/Results/Core Measures Suspected Sepsis Recent Fever Within 48 Hours: Yes Infection Criteria Present: Suspected New Infection New/Unexplained Altered Menta: No Sepsis Screen: Possible Sepsis Risk SIRS Temperature:102.2 Pulse: 113 Respiratory Rate: 20 Laboratory Tests 06/01/18 15:22: White Blood Count 13.1H Blood Pressure 132 /95 Mean: 107 06/01/18 15:22: Lactic Acid Level 1.97 Laboratory Tests 06/01/18 15:22: Creatinine 1.09, INR Comment 1.2, Platelet Count 55L, Total Bilirubin 3.2H Results/Orders Lab Results Laboratory Tests Test 06/01/18 15:22 06/01/18 16:21 Range/Units White Blood Count 13.1 H 4.3-11.0 10^3/uL Red Blood Count 4.59 4.35-5.85 10^6/uL Hemoglobin 15.6 11.5-16.0 G/DL Hematocrit 44 35-52 % Mean Corpuscular Volume 95 80-99 FL Mean Corpuscular Hemoglobin 34 25-34 PG Mean Corpuscular Hemoglobin Concent 36 32-36 G/DL Red Cell Distribution Width 13.6 10.0-14.5 % Platelet Count 55 L 130-400 10^3/uL Mean Platelet Volume 12.6 H 7.4-10.4 FL Neutrophils (%) (Auto) 75 42-75 % Lymphocytes (%) (Auto) 10 L 12-44 % Monocytes (%) (Auto) 15 H 0-12 % Eosinophils (%) (Auto) 0 0-10 % Basophils (%) (Auto) 0 0-10 % Neutrophils # (Auto) 9.8 H 1.8-7.8 X 10^3 Lymphocytes # (Auto) 1.3 1.0-4.0 X 10^3 Monocytes # (Auto) 2.0 H 0.0-1.0 X 10^3 Eosinophils # (Auto) 0.0 0.0-0.3 10^3/uL Basophils # (Auto) 0.0 0.0-0.1 10^3/uL Prothrombin Time 15.1 H 12.2-14.7 SEC INR Comment 1.2 0.8-1.4 Activated Partial Thromboplast Time 30 24-35 SEC Sodium Level 134 L 135-145 MMOL/L Potassium Level 3.6 3.6-5.0 MMOL/L Chloride Level 100 98-107 MMOL/L Carbon Dioxide Level 20 L 21-32 MMOL/L Anion Gap 14 5-14 MMOL/L Blood Urea Nitrogen 26 H 7-18 MG/DL Creatinine 1.09 0.60-1.30 MG/DL Estimat Glomerular Filtration Rate 51 BUN/Creatinine Ratio 24 Glucose Level 98 70-105 MG/DL Lactic Acid Level 1.97 0.50-2.00 MMOL/L Calcium Level 12.5 H 8.5-10.1 MG/DL Corrected Calcium 12.6 H 8.5-10.1 MG/DL Total Bilirubin 3.2 H 0.1-1.0 MG/DL Aspartate Amino Transf (AST/SGOT) 28 5-34 U/L Alanine Aminotransferase (ALT/SGPT) 10 0-55 U/L Alkaline Phosphatase 86 40-136 U/L C-Reactive Protein High Sensitivity 4.39 H 0.00-0.50 MG/DL Total Protein 8.4 H 6.4-8.2 GM/DL Albumin 3.9 3.2-4.5 GM/DL Urine Color PAYAL H Urine Clarity VERY CLOUDY H Urine pH 5 5-9 Urine Specific Lyons 1.015 L 1.016-1.022 Urine Protein 3+ H NEGATIVE Urine Glucose (UA) NEGATIVE NEGATIVE Urine Ketones 1+ H NEGATIVE Urine Nitrite POSITIVE H NEGATIVE Urine Bilirubin 2+ H NEGATIVE Urine Urobilinogen 8 H NORMAL MG/DL Urine Leukocyte Esterase 3+ H NEGATIVE Urine RBC (Auto) 5+ H NEGATIVE Urine RBC 5-10 H /HPF Urine WBC 10-25 H /HPF Urine Squamous Epithelial Cells 10-25 H /HPF Urine Renal Epithelial Cells 0-2 /HPF Urine Crystals NONE /LPF Urine Bacteria MODERATE H /HPF Urine Casts PRESENT /LPF Urine Hyaline Casts 0-2 H /LPF Urine Granular Casts RARE /LPF Urine Mucus SMALL H /LPF Urine Yeast MODERATE H /HPF Urine Culture Indicated YES Micro Results Microbiology 06/01/18 Influenza Types A,B Antigen (RAY) - Final, Complete My Orders Orders - PHAM HIDALGO MD Chest Pa/Lat (2 View) (06/01/18 15:05) Cbc With Automated Diff (06/01/18 15:05) Comprehensive Metabolic Panel (06/01/18 15:05) Saline Lock/Iv-Start (06/01/18 15:05) Blood Culture (06/01/18 15:17) Sputum Culture (06/01/18 15:17) Protime With Inr (06/01/18 15:17) Partial Thromboplastin Time (06/01/18 15:17) Vital Signs Adult Sepsis Patie Q15M (06/01/18 15:17) O2 (06/01/18 15:17) Remove Rings In Anticipation O (06/01/18 15:17) Lactic Acid Analyzer (06/01/18 15:17) Influenza A And B Antigens (06/01/18 15:17) Ns Iv 1000 Ml (Sodium Chloride 0.9%) (06/01/18 15:29) Ua Culture If Indicated (06/01/18 16:16) Hs C Reactive Protein (06/01/18 16:24) Urine Culture (06/01/18 16:21) Ceftriaxone For Iv Use (Rocephin For I (06/01/18 17:30) Medications Given in ED Current Medications Medications Dose Ordered Sig/Dany Route Start Time Stop Time Status Last Admin Dose Admin Ceftriaxone Sodium 1000 mg/ Sodium Chloride 50 ml @ 100 mls/hr ONCE ONCE IV 06/01/18 17:30 06/01/18 17:59 DC 06/01/18 17:46 100 MLS/HR Sodium Chloride 1,000 ml @ 0 mls/hr Q0M ONCE IV 06/01/18 15:29 06/01/18 15:30 DC 06/01/18 16:02 1,000 MLS/HR Vital Signs/I&O 06/01/18 06/01/18 15:01 15:01 Temp 102.2 Pulse 113 Resp 20 B/P (MAP) 132/95 (107) Pulse Ox 89 95 O2 Delivery Room Air Nasal Cannula O2 Flow Rate 2.00 Capillary Refill : Less Than 3 Seconds Blood Pressure Mean: 107 Progress Note : Progress Note Patient was treated with IV fluids. Chest x-ray showed no evidence of pneumonia. Influenza screen was negative. UA did show evidence of urinary tract infection. Rocephin was initiated as initial antibiotic therapy. Blood cultures and lactic acid had been drawn prior to treatment. Patient was admitted for treatment of sepsis and UTI. Diagnostic Imaging Diagonstic Imaging: Xray Plain Films/CT/US/NM/MRI: chest Comments Chest x-ray viewed by me and report reviewed. See report below: NAME: MAI WELCH MED REC#: [id number] PT STATUS: REG ER : 1955 PHYSICIAN: PHAM HIDALGO MD ADMIT DATE: 06/01/18/ER Signed Date of Exam: 06/01/18 CHEST PA/LAT (2 VIEW) Indication: Dyspnea with fever, nausea and vomiting, cough. Comparison: 08/25/2016. Discussion: Two views of the chest were obtained. Accentuated thoracic kyphosis is stable. Pulmonary hyperinflation is stable. Underlying pulmonary artery hypertension is stable. Stable normal heart size. Dextroscoliosis of the thoracic spine is stable. No focal consolidation, pleural fluid or pneumothorax. Impression: Stable chronic changes as discussed. No acute cardiopulmonary process. Dictated by: Dictated on workstation # [id number] Dict: 06/01/18 1546 Trans: 06/01/18 1606 Interpreted by: ARMAND ANTHONY MD Electronically signed by: ARMAND ANTHONY MD 06/01/18 1606 Departure Communication (Admissions) Time/Spoke to Admitting Phy: 17:30 Dr. Archibald Impression Primary Impression: Sepsis Qualified Codes: A41.9 - Sepsis, unspecified organism Additional Impressions: Urinary tract infection Qualified Codes: N39.0 - Urinary tract infection, site not specified Nausea vomiting and diarrhea Disposition: ADMITTED INPATIENT Condition: Improved Admissions Decision to Admit Reason: Admit from ER (General) Decision to Admit/Date: Jun 01, 2018 Time/Decision to Admit Time: 17:20 Departure-Patient Inst. Referrals: ATIYA LÓPEZ MD (PCP/Family) Primary Care Physician PHAM HIDALGO MD Jun 01, 2018 17:59
[2018-06-01 18:41] LABS: BILIRUBIN,URINE 2+ (NEGATIVE)
[2018-06-01] MEDS ORDERED: FURO-125 PO (19:04)
[2018-06-01] MEDS ORDERED: SPIR25TA PO (19:05)
[2018-06-01 19:15] VITALS: BP 103/74
[2018-06-01] MEDS ORDERED: NS IV 1000 ML 1,000 ML ONE (20:03)
[2018-06-01] MEDS: NS IV 1000 ML 1,000 ML IV SCH (20:06)
[2018-06-01 21:15] VITALS: BP 116/81
[2018-06-01] MEDS ORDERED: cefTRIAXone 1 GM/NS 50 ML IVPB IV SCH ×2 (22:15)
[2018-06-01] MEDS ORDERED: ONDANSETRON 4 MG/2 ML (SDV) Z0FRAN IV PRN (22:15)
[2018-06-01 23:15] VITALS: BP 101/71
[2018-06-02] VITALS (7 sets, daily range): BP systolic 90–114; BP diastolic 58–84
[2018-06-02] MEDS: ACETAMINOPHEN 500 MG TAB (TYLENOL) PO PRN (00:06)
[2018-06-02] MEDS: NS IV 1000 ML 1,000 ML IV SCH ×4 (01:45→23:23)
[2018-06-02 05:34] LABS: BASOPHILS % (AUTO) 0 % (0-10); EOSINOPHILS % (AUTO) 0 % (0-10); HEMATOCRIT 42 % (35-52); HEMOGLOBIN 14.4 G/DL (11.5-16.0); LYMPHOCYTES # (AUTO) 1.1 X 10^3 (1.0-4.0); LYMPHOCYTES % (AUTO) 16 % (12-44); MEAN CORPUSCULAR HEMOGLOBIN 33 PG (25-34); MEAN CORPUSCULAR HGB CONC 34 G/DL (32-36); MEAN CORPUSCULAR VOLUME 98 FL (80-99); MEAN PLATELET VOLUME 13.3 FL (7.4-10.4); MONOCYTES # (AUTO) 1.3 X 10^3 (0.0-1.0); MONOCYTES % (AUTO) 18 % (0-12); NEUTROPHILS # (AUTO) 4.7 X 10^3 (1.8-7.8); NEUTROPHILS % (AUTO) 66 % (42-75); RED BLOOD COUNT 4.33 10^6/uL (4.35-5.85); RED CELL DISTRIBUTION WIDTH 13.7 % (10.0-14.5); WHITE BLOOD COUNT 7.1 10^3/uL (4.3-11.0)
[2018-06-02 05:45] LABS: PLATELET COUNT 40 10^3/uL (130-400)
[2018-06-02 05:52] LABS: ALANINE AMINOTRANSFERASE 9 U/L (0-55); ALBUMIN 3.1 GM/DL (3.2-4.5); ALKALINE PHOSPHATASE 74 U/L (40-136); BILIRUBIN,TOTAL 2.5 MG/DL (0.1-1.0); BUN/CREATININE RATIO 26; CARBON DIOXIDE 17 MMOL/L (21-32); CHLORIDE 109 MMOL/L (98-107); CREATININE SERUM 0.81 MG/DL (0.60-1.30); GFR ESTIMATED > 60; GLUCOSE 87 MG/DL (70-105); POTASSIUM 3.7 MMOL/L (3.6-5.0); SODIUM 137 MMOL/L (135-145); TOTAL PROTEIN 6.8 GM/DL (6.4-8.2)
[2018-06-02] MEDS ORDERED: FLU QUADRIvalent (5+ YOA) 2018-2019 (AFLURIA) 0.5 ML IM ONE (07:00)
--- NOTE | 2018-06-02 13:08 | Diagnostic Imaging Report ---
Indication: Hypoxia. Comparison: 06/01/2018 Findings: There is cardiomegaly. There is venous congestion. Lungs are clear. No pleural effusion or pneumothorax. The mediastinum is unremarkable. Impression: Cardiomegaly and mild central pulmonary venous congestion. Dictated by: Dictated on workstation # [id number]
--- NOTE | 2018-06-02 14:31 | History & Physicial (CHS) ---
HPI History of Present Illness: This is a 62 yo female patient with hx of Hep C s/p treatment and cure and recent dx of liver CA. Pt presented to [facility] in [place] and was noted to have O2 of 89%. She reports SOA, n/v, fever and body aches for 4 days. She denies urinary tract symptoms. She reports feeling some improvement since admission. Source: patient Exam Limitations: no limitations Date seen by provider: Jun 02, 2018 Time Seen by Provider: 11:20 Attending Physician Yana Holbrook DO PCP Kath Raphael MD Consult Date of Admission Jun 01, 2018 at 17:30 Home Medications Home Medications Reviewed patient Home Medication Reconciliation performed by pharmacy medication reconciliations quality systems technician and/or nursing. Patients Allergies have been reviewed. Allergies Coded Allergies: No Known Drug Allergies (Unverified , 11/14/16) EYD-Lfamsj-Hzjfgo Hx Patient Social History Alcohol Use: Past History Recreational Drug Use: No Smoking Status: Never a Smoker 2nd Hand Smoke Exposure: No Recent Foreign Travel: No Contact w/other who traveled: No Recent Hopitalizations: No Recent Infectious Disease Expo: No Physical Abuse Screen: No Sexual Abuse: No Immunizations Up To Date Date of Pneumonia Vaccine: May 30, 1998 Past Medical History Hepatitis C s/p treatment with negative viral load Liver cancer - awaiting treatment history etoh use hypertension scoliosis PSH: tooth extraction (ful mouth) liver biopsy Family Medical History Significant Family History: No Pertinent Family Hx Family History: Patient reports no known family medical history. Review of Systems (CHC) Constitutional: see HPI Reviewed Test Results Reviewed Test Results Lab Laboratory Tests 06/01/18 15:22: White Blood Count 13.1H, Red Blood Count 4.59, Hemoglobin 15.6, Hematocrit 44, Mean Corpuscular Volume 95, Mean Corpuscular Hemoglobin 34, Mean Corpuscular Hemoglobin Concent 36, Red Cell Distribution Width 13.6, Platelet Count 55L, Mean Platelet Volume 12.6H, Neutrophils (%) (Auto) 75, Lymphocytes (%) (Auto) 10L, Monocytes (%) (Auto) 15H, Eosinophils (%) (Auto) 0, Basophils (%) (Auto) 0 , Neutrophils # (Auto) 9.8H, Lymphocytes # (Auto) 1.3, Monocytes # (Auto) 2.0H, Eosinophils # (Auto) 0.0, Basophils # (Auto) 0.0, Prothrombin Time 15.1H, INR Comment 1.2, Activated Partial Thromboplast Time 30, Sodium Level 134L, Potassium Level 3.6, Chloride Level 100, Carbon Dioxide Level 20L, Anion Gap 14 , Blood Urea Nitrogen 26H, Creatinine 1.09, Estimat Glomerular Filtration Rate 51, BUN/Creatinine Ratio 24, Glucose Level 98, Lactic Acid Level 1.97, Calcium Level 12.5H, Corrected Calcium 12.6H, Total Bilirubin 3.2H, Aspartate Amino Transf (AST/SGOT) 28, Alanine Aminotransferase (ALT/SGPT) 10, Alkaline Phosphatase 86, C-Reactive Protein High Sensitivity 4.39H, Total Protein 8.4H, Albumin 3.9 06/01/18 16:21: Urine Color AMBERH, Urine Clarity VERY CLOUDYH, Urine pH 5, Urine Specific [place] 1.015L, Urine Protein 3+H, Urine Glucose (UA) NEGATIVE, Urine Ketones 1+ H, Urine Nitrite POSITIVEH, Urine Bilirubin 2+H, Urine Urobilinogen 8H, Urine Leukocyte Esterase 3+H, Urine RBC (Auto) 5+H, Urine RBC 5-10H, Urine WBC 10-25H , Urine Squamous Epithelial Cells 10-25H, Urine Renal Epithelial Cells 0-2, Urine Crystals NONE, Urine Bacteria MODERATEH, Urine Casts PRESENT, Urine Hyaline Casts 0-2H, Urine Granular Casts RARE, Urine Mucus SMALLH, Urine Yeast MODERATEH, Urine Culture Indicated YES 06/02/18 05:00: Sodium Level 137, Potassium Level 3.7, Chloride Level 109H, Carbon Dioxide Level 17L, Anion Gap 11, Blood Urea Nitrogen 21H, Creatinine 0.81, Estimat Glomerular Filtration Rate > 60, BUN/Creatinine Ratio 26, Glucose Level 87, Calcium Level 11.0H, Corrected Calcium 11.7H, Total Bilirubin 2.5H, Aspartate Amino Transf (AST/SGOT) 23, Alanine Aminotransferase (ALT/SGPT) 9, Alkaline Phosphatase 74, Total Protein 6.8, Albumin 3.1L 06/02/18 05:20: White Blood Count 7.1, Red Blood Count 4.33L, Hemoglobin 14.4, Hematocrit 42, Mean Corpuscular Volume 98, Mean Corpuscular Hemoglobin 33, Mean Corpuscular Hemoglobin Concent 34, Red Cell Distribution Width 13.7, Platelet Count 40L, Mean Platelet Volume 13.3H, Neutrophils (%) (Auto) 66, Lymphocytes (%) (Auto) 16 , Monocytes (%) (Auto) 18H, Eosinophils (%) (Auto) 0, Basophils (%) (Auto) 0, Neutrophils # (Auto) 4.7, Lymphocytes # (Auto) 1.1, Monocytes # (Auto) 1.3H, Eosinophils # (Auto) 0.0, Basophils # (Auto) 0.0 Microbiology 06/01/18 Influenza Types A,B Antigen (RAY) - Final, Complete Radiology Date of Exam: 06/01/18 CHEST PA/LAT (2 VIEW) Indication: Dyspnea with fever, nausea and vomiting, cough. Comparison: 08/25/2016. Discussion: Two views of the chest were obtained. Accentuated thoracic kyphosis is stable. Pulmonary hyperinflation is stable. Underlying pulmonary artery hypertension is stable. Stable normal heart size. Dextroscoliosis of the thoracic spine is stable. No focal consolidation, pleural fluid or pneumothorax. Impression: Stable chronic changes as discussed. No acute cardiopulmonary process. Physical Exam-(CHC) Physical Exam Vital Signs VS - Last 72 Hours, by Label 06/01/18 06/01/18 06/01/18 06/01/18 15:01 15:01 19:00 19:15 Temp 102.2 98.7 98.9 Pulse 113 105 106 Resp 20 16 16 B/P (MAP) 132/95 (107) 105/77 (86) 103/74 (84) Pulse Ox 89 95 96 92 O2 Delivery Room Air Nasal Cannula Nasal Cannula Nasal Cannula O2 Flow Rate 2.00 2.00 2.00 06/01/18 06/01/18 06/01/18 06/01/18 19:27 21:06 21:15 21:37 Temp 99.1 Pulse 109 107 Resp 16 B/P (MAP) 116/81 (93) Pulse Ox 92 O2 Delivery Nasal Cannula Nasal Cannula Nasal Cannula O2 Flow Rate 2.00 2.00 2.00 06/01/18 06/02/18 06/02/18 06/02/18 23:15 00:06 01:00 01:01 Temp 101.6 101.6 99.1 Pulse 106 100 Resp 30 B/P (MAP) 101/71 (81) Pulse Ox 90 O2 Delivery Nasal Cannula O2 Flow Rate 2.00 06/02/18 06/02/18 06/02/18 06/02/18 01:15 03:15 05:15 07:00 Temp 99.0 98.7 97.6 Pulse 89 83 84 77 Resp 26 26 24 B/P (MAP) 90/58 (69) 96/66 (76) 102/69 (80) Pulse Ox 90 93 94 O2 Delivery Nasal Cannula Nasal Cannula Nasal Cannula O2 Flow Rate 3.00 3.00 2.00 06/02/18 06/02/18 06/02/18 06/02/18 08:00 08:30 12:12 13:00 Temp 98.8 100.1 Pulse 77 96 102 Resp 18 20 B/P (MAP) 97/66 (76) 103/69 (80) Pulse Ox 95 93 O2 Delivery Nasal Cannula Nasal Cannula Nasal Cannula O2 Flow Rate 2.00 2.00 2.00 Capillary Refill : Less Than 3 Seconds General Appearance: WD/WN, no apparent distress HEENT: PERRL/EOMI Respiratory: normal breath sounds, no respiratory distress, crackles (L lung) Cardiovascular: regular rate, rhythm, no edema Gastrointestinal: non tender, soft Extremities: no pedal edema Neurologic/Psychiatric: alert, normal mood/affect, oriented x 3 Skin: normal color, warm/dry Assessment/Plan Assessment/Plan Admission Dx 1. Sepsis, urinary source 2. UTI 3. Hypoxia 4. Liver cancer 5. Hx Hep C s/p treatment Admission Status: Inpatient Order (span 2 midnights) Reason for Inpatient Admission: anticipate 2 days of antibiotic treatment for sepsis Assessment & Plan 1. Sepsis, urinary source - elevated wbc on admission 13.1, improved to 7.1; crp 4.39, LA 1.97; flu neg - UA c/w UTI - blood, urine and sputum cultures pending - Ceftiaxone 2. UTI - see #1; pt denies symptoms of UTI 3. Hypoxia, not on home O2 - CXR negative; repeat 06/02 - no evidence of pneumonia, mild venous congestion, enlarged heart - will obtain Echo - no risk for COPD, no hx of tob use; may need PFTs as OP for further evaluation 4. Liver cancer - awaiting insurance to start treatment 5. Hx Hep C s/p treatment - pt reports cure 6. Thrombocytopenia, hyperbilirubinemia, elevated Ca - secondary to#4 7. Scoliosis Clinical Quality Measures DVT/VTE Risk/Contraindication: Risk Factor Score Per Nursin RFS Level Per Nursing on Admit: 4+=Very High Contraindications-Pharm: Other *list below* Other: thrombocytopenia YANA HOLBROOK DO Jun 02, 2018 14:31
[2018-06-02] MEDS: FUROSEMIDE 20 MG (LASIX) TAB PO SCH (15:10)
[2018-06-02] MEDS: SPIRONOLACTONE 25 MG (ALDACTONE) TAB PO SCH (15:11)
[2018-06-02] MEDS: cefTRIAXone 1 GM/NS 50 ML IVPB IV SCH ×2 (15:12)
[2018-06-03] VITALS: BP 102/73
[2018-06-03 04:00] VITALS: BP 101/69
[2018-06-03] MEDS: NS IV 1000 ML 1,000 ML IV SCH (05:40)
[2018-06-03 06:32] LABS: BASOPHILS % (AUTO) 1 % (0-10); EOSINOPHILS # (AUTO) 0.1 10^3/uL (0.0-0.3); EOSINOPHILS % (AUTO) 1 % (0-10); HEMATOCRIT 41 % (35-52); HEMOGLOBIN 14.2 G/DL (11.5-16.0); LYMPHOCYTES # (AUTO) 1.3 X 10^3 (1.0-4.0); LYMPHOCYTES % (AUTO) 18 % (12-44); MEAN CORPUSCULAR HEMOGLOBIN 34 PG (25-34); MEAN CORPUSCULAR HGB CONC 35 G/DL (32-36); MEAN CORPUSCULAR VOLUME 98 FL (80-99); MEAN PLATELET VOLUME 12.6 FL (7.4-10.4); MONOCYTES # (AUTO) 1.3 X 10^3 (0.0-1.0); MONOCYTES % (AUTO) 18 % (0-12); NEUTROPHILS # (AUTO) 4.4 X 10^3 (1.8-7.8); NEUTROPHILS % (AUTO) 62 % (42-75); RED BLOOD COUNT 4.21 10^6/uL (4.35-5.85); RED CELL DISTRIBUTION WIDTH 14.1 % (10.0-14.5); WHITE BLOOD COUNT 7.1 10^3/uL (4.3-11.0)
[2018-06-03 06:35] LABS: PLATELET COUNT 35 10^3/uL (130-400)
[2018-06-03 07:14] LABS: ALANINE AMINOTRANSFERASE 8 U/L (0-55); ALKALINE PHOSPHATASE 77 U/L (40-136); BILIRUBIN,TOTAL 2.2 MG/DL (0.1-1.0); BUN/CREATININE RATIO 19; CALCIUM 10.6 MG/DL (8.5-10.1); CARBON DIOXIDE 20 MMOL/L (21-32); CHLORIDE 111 MMOL/L (98-107); CREATININE SERUM 0.73 MG/DL (0.60-1.30); GFR ESTIMATED > 60; GLUCOSE 92 MG/DL (70-105); POTASSIUM 3.5 MMOL/L (3.6-5.0); SODIUM 139 MMOL/L (135-145); TOTAL PROTEIN 6.5 GM/DL (6.4-8.2)
[2018-06-03 07:17] LABS: BAND NEUTROPHILS 2 %; BASOPHILS % (MANUAL) 0 %; EOSINOPHILS % (MANUAL) 1 %; LYMPHOCYTES % (MANUAL) 22 %; MONOCYTES % (MANUAL) 18 %; NEUTROPHILS % (MANUAL) 57 %
[2018-06-03 07:18] LABS: RBC MORPH NORMAL
[2018-06-03] MEDS: SPIRONOLACTONE 25 MG (ALDACTONE) TAB PO SCH (07:52)
[2018-06-03] MEDS: FUROSEMIDE 20 MG (LASIX) TAB PO SCH (07:52)
[2018-06-03 08:00] VITALS: BP 118/53
[2018-06-03] MEDS ORDERED: FLU QUADRIvalent (5+ YOA) 2018-2019 (AFLURIA) 0.5 ML IM ONE (08:11)
[2018-06-03] MEDS ORDERED: FUROSEMIDE 20 MG (LASIX) TAB PO SCH (09:00)
[2018-06-03] MEDS ORDERED: SPIRONOLACTONE 25 MG (ALDACTONE) TAB PO SCH (09:00)
[2018-06-03] MEDS ORDERED: LACTULOSE SYRUP 10GM/15ML (ENULOSE) 30ML UDC PO NR (10:30)
[2018-06-03] MEDS ORDERED: SENNA W/DOCUSATE (SENOKOT S) TABLET PO NR (10:30)
--- NOTE | 2018-06-03 10:34 | Progress Note-Hospitalist ---
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 Talked about needing fci at DC No bleeding issues Bowel regimen Checked meds and labs Consulting Dr Bentley regarding ECHO results Review of Systems General: Fatigue Gastrointestinal: Constipation Focused Exam Lactate Level 06/01/18 15:22: Lactic Acid Level 1.97 Objective Exam Vital Signs Vital Signs Date Time Temp Pulse Resp B/P (MAP) Pulse Ox O2 Delivery O2 Flow Rate FiO2 06/03/18 19:48 Nasal Cannula 3.00 06/03/18 19:45 99.5 99 16 104/77 (86) 92 Capillary Refill : Less Than 3 Seconds General Appearance: No Apparent Distress, WD/WN, Chronically ill, Cachetic Respiratory: Chest Non Tender, Lungs Clear, Normal Breath Sounds, No Accessory Muscle Use, No Respiratory Distress, Decreased Breath Sounds (bases) Cardiovascular: Regular Rate, Rhythm, No Edema, No Gallop, No JVD, No Murmur, Normal Peripheral Pulses Neurologic/Psychiatric: Alert, Oriented x3, No Motor/Sensory Deficits, Normal Mood/Affect Skin: Normal Color, Warm/Dry Results/Procedures Lab Laboratory Tests 06/03/18 06:17 Patient resulted labs reviewed. Assessment/Plan Assessment and Plan Assess & Plan/Chief Complaint Assessment: Hypoxia with negative CXR except pulmonary congestion Severe valvular heart disease on ECHO Pulmonary HTN Abnormal UA w/3 mixed bacteria not c/w true infection Fever of unknown source Previous alcoholic quit 4 yrs ago Thrombocytopenia Liver cancer Cirrhosis Plan: Rocephin empirically Consult Dr Bentley for valvular disease Consult Dr Martinez for low platelets and cancer management consult for placement since she appears to need ID Diagnosis/Problems Diagnosis/Problems (1) Fever Status: Acute (2) Hypoxia Status: Acute (3) Liver cancer Status: Chronic Qualifiers: Liver malignancy type: hepatocellular carcinoma Qualified Codes: C22.0 - Liver cell carcinoma (4) Advanced cirrhosis of liver Status: Chronic (5) 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 (6) Abnormal urinalysis Status: Acute (7) Pulmonary arterial hypertension Status: Acute (8) Weakness Status: Acute (9) Debility Status: Acute (10) Poor prognosis Status: Acute (11) Sepsis Status: Acute Qualifiers: Sepsis type: sepsis due to unspecified organism Qualified Codes: A41.9 - Sepsis, unspecified organism (12) Nausea vomiting and diarrhea Status: Acute (13) Thrombocytopenia Status: Chronic (14) Coagulopathy Status: Chronic Clinical Quality Measures DVT/VTE Risk/Contraindication: Risk Factor Score Per Nursin RFS Level Per Nursing on Admit: 4+=Very High Contraindications-Pharm: Other *list below* Other: thrombocytopenia PHAM THOMAS MED STUDENT 06/03/18 1135: Subjective Subjective/Events-last exam This is an alert/oriented 62 y/o female who is in no acute distress She states that she is "not feeling too bad today" She complains of slight ULQ pain She reports no N/V/D She has not had a bowel movement since Sunday Objective Exam General Appearance: No Apparent Distress, WD/WN Respiratory: Chest Non Tender, Lungs Clear, Normal Breath Sounds, No Accessory Muscle Use, No Respiratory Distress Cardiovascular: Regular Rate, Rhythm, No Edema, No Gallop, No JVD, No Murmur, Normal Peripheral Pulses Neurologic/Psychiatric: Alert, Oriented x3, No Motor/Sensory Deficits, Normal Mood/Affect Skin: Normal Color, Warm/Dry Assessment/Plan Assessment and Plan Assess & Plan/Chief Complaint Assessment: 1) Sepsis 2) UTI 3) SOB Plan: 1) Continue broad spectrum abx 2) Pulmonology consult JOEY OLMEDO DO Jun 03, 2018 10:34 PHAM THOMAS MED STUDENT Jun 03, 2018 11:35
[2018-06-03] MEDS: BISACODYL 10 MG SUPP (DULCOLAX) PR NR ×2 (11:19→11:25)
[2018-06-03 12:00] VITALS: BP 104/68
--- NOTE | 2018-06-03 14:23 | Physical Therapy Evaluation ---
PT Evaluation-General Medical Diagnosis Admission Date Jun 01, 2018 at 17:30 Medical Diagnosis: UTI/sepsis Onset Date: Jun 01, 2018 Therapy Diagnosis Therapy Diagnosis: General Weakness, Debility Height/Weight Height (Feet): 5 Height (Inches): 6.00 Weight (Pounds): 101 Weight (Ounces): 9.6 Precautions Precautions/Isolations: Fall Prevention, Standard Precautions Weight Bear Status Right Lower Extremity: Right Full Weight Bearing Left Lower Extremity: Left Full Weight Bearing Referral Physician: Clary Reason for Referral: Evaluation/Treatment Medical History Additional Medical History Hepatitis C s/p treatment with negative viral load Liver cancer - awaiting treatment history etoh use hypertension scoliosis Current History Patient admitted to hospital for SOB. Patient currently lives in multilevel home with ramp for access and multiple stairs to climb to get to her room. Patient lives by herself and does not have frequent friends or family that come by home. Reviewed History: Yes Social History Home: Multilevel Current Living Status: Alone Entry Into Home: Ramp PT Steps Into Home: 0 PT Steps Inside Home: 20 Prior/Core FIM Prior Level of Function Functional [place] Measure 0=Not Assessed/NA 4=Minimal Assistance 1=Total Assistance 5=Supervision or Setup 2=Maximal Assistance 6=Modified [place] 3=Moderate Assistance 7=Complete IndependenceIRFPAI Quality Coding Scale 6 Independent with activity with or without an assistive device 5 Patient requires set up or clean up by helper. Patient completes activity by themselves 4 Supervision or touching assist (CGA). [place] provide cues , steadying assist 3 The helper provides less than half the effort to complete the activity 2 The helper provides more than half the effort to complete the activity 1 Dependent. The helper does all the effort to complete an activity 7 Patient refused to complete or attempt activity 9 The patient did not perform the activity before the current illness or injury 88 Not attempted due to Medical conditions or safety concerns Bed Mobility: 7 Transfers (B,C,W/C) (FIM): 7 Gait: 7 Stairs: 7 PT Evaluation-Current Subjective Pt awake in bed having EKG performed when PT arrived. Pt agreed to evaluation by PT. Pain Numeric Pain Scale: 0-No Pain Location: No Pain Reported Objective Patient Orientation: Normal For Age Problem Solving: Good Attachments: Oxygen, IV ROM/Strength ROM Upper Extremities WNL ROM Lower Extremities WNL Strength Upper Extremities WNL Strength Lower Extremities Bilateral hip flexion 3+/5, BLEs 4/5 Integumentary/Posture Bowel Incontinence: No Bladder Incontinence: No Posture Patient has severe scoliosis and kyphotic curve in thoracic spine. Neuromuscular (Tone, Coordination, Reflexes) NT Sensory Vision: Wears Glasses Hearing: Functional Sensation Right Upper Extremit: Intact Sensation Left Upper Extremity: Intact Sensation Right Lower Extremit: Intact Sensation Left Lower Extremity: Intact Transfers Functional [place] Measure 0=Not Assessed/NA 4=Minimal Assistance 1=Total Assistance 5=Supervision or Setup 2=Maximal Assistance 6=Modified [place] 3=Moderate Assistance 7=Complete [place] Transfers (B, C, W/C) (FIM): 5 Scootin Rollin Supine to/from Sit: 5 Sit to/from Stand: 5 Gait Mode of Locomotion: Walk Anticipated Mode of Locomotion: Walk Gait (FIM): 5 Distance (FIM): 3=150 ft Distance: 150' Gait Level of Assist: 5 Gait Persons Needed: 1 Gait Assistive Device: None Comments/Gait Description Patient has shortened stride length and low toe clearance. Balance Sitting Static: Normal Sitting Dynamic: Normal Standing Static: Good Standing Dynamic: Good Assessment/Needs Patient was able to ambulate with 2L oxygen with SBA for 150'. Patient did not show signs of fatigue and had a min of 4/5 strength throughout her LEs. Patient will continue to benefit from therapy to improve overall ambulation for daily demands. Rehab Potential: Guarded PT Group Home Goals Pediatric Acute Care Unit Nurse Goals PT Group Home Goals Time Frame: Jun 07, 2018 Transfers (B,C,W/C) (FIM): 7 Gait (FIM): 7 Gait distance (FIM): 3=150 ft Distance: >200 Gait Level of Assist: 7 Gait Assistive Device: None PT Plan Problem List Problem List: Activity Tolerance, Functional Strength, Safety, Balance, Gait, Transfer, Bed Mobility, ROM Treatment/Plan Treatment Plan: Continue Plan of Care Treatment Plan: Bed Mobility, Education, Functional Strength, Gait, Safety, Therapeutic Exercise, Transfers Treatment Duration: Jun 07, 2018 Frequency: 5 times per week Estimated Hrs Per Day: .25 hour per day Patient and/or Family Agrees t: Yes Time/GCodes Time In: 1358 Time Out: 1413 Total Billed Treatment Time: 15 [facility] Jun 03, 2018 14:22
[2018-06-03] MEDS ORDERED: SPIR100T4 PO (14:44)
--- NOTE | 2018-06-03 15:31 | Consultation-Cardiology ---
HPI-Cardiology Cardiology Consultation: Date of Consultation 06/03/18 Date of Admission 06-01-18 Attending Physician Yana Archibald DO Admitting Physician Kath Raphael MD Consulting Physician Oliver Bentley MD HPI: Chief Complaint: Dyspnea Palpitations Ms. Kee is a 62 year old female admitted to [facility] from the ED. She states she came into the ED on 06-01-18 d/t increasing shortness of breath, fever and chills. She reports she continues to have SOB and feels it has not improved since admission. She denies any n/v/d. She does report constipation. She denies any chest pain. She reports chronic bilat LE edema which started approx 4 months ago for which she has been taking Lasix and Aldactone. She reports the LE edema has improved. She reports at home she has been having episodes of palpitations for approx the last 9 months. She reports they occur several times during the day and last for approx 10-15 minutes. She reports she feels SOB and lightheaded. She reports the episodes start suddenly and gradually resolve. She denies any r/t activity or emotional stress. She denies any syncope or near syncope. She reports she has continued to have palpitations while she has been in the hospital. Review of Systems-Cardiology Review of Systems Constitutional: chills, fever, lightheadedness, malaise Eyes: No vision change Ears/Nose/Throat: No epistaxis, No recent hearing loss Respiratory: As described under HPI Cardiovascular: As described under HPI Gastrointestinal: constipation; No diarrhea, No nausea, No vomiting Genitourinary: No dysuria, No hematuria : No Musculoskeletal: other (chronic back; scoliosis) Skin: No rash, No ulcerations Psychiatric/Neurological: other (fine tremors of her hands which started approx 9 months ago); No anxiety, No depression, No seizure Hematologic: No bleeding abnormalities KVC-Tbtllx-Ttzchj Hx Patient Social History Alcohol Use: Past History Recreational Drug Use: No Smoking Status: Never a Smoker 2nd Hand Smoke Exposure: No Recent Foreign Travel: No Recent Infectious Disease Expo: No Hospitalization with Isolation: Denies Physical Abuse Screen: No Sexual Abuse: No Immunizations Up To Date Date of Pneumonia Vaccine: May 30, 1998 Past Medical History PMH As described under Assessment. Family Medical History Family Medical History: She denies any family h/o CAD or SCD. Family History: Patient reports no known family medical history. Allergies and Home Medications Allergies Coded Allergies: No Known Drug Allergies (Unverified , 11/14/16) Home Medications Furosemide 20 Mg Tablet, 20 MG PO DAILY, (Reported) Spironolactone 100 Mg Tablet, 100 MG PO DAILY, (Reported) Physical Exam-Cardiology Physical Exam Vital Signs/I&O 06/04/18 06/04/18 06/04/18 06/04/18 00:24 01:00 04:09 08:00 Temp 99.6 98.4 98.7 Pulse 99 100 94 81 Resp 16 16 18 B/P (MAP) 106/69 (81) 117/84 (95) 106/82 (90) Pulse Ox 94 94 95 O2 Delivery Nasal Cannula Nasal Cannula Nasal Cannula O2 Flow Rate 2.50 2.50 2.50 06/04/18 00:00 Intake Total 1070 ml Output Total 800 ml Balance 270 ml Capillary Refill : Less Than 3 Seconds Constitutional: AAO x 3, well-developed, well-nourished HEENT: PERRL, hearing is well preserved, oral hygience is good; No xanthelasmas are seen Neck: No carotid bruit; carotid pulses are 2 + bilaterally Respiratory: No accessory muscle use, No respiratory distress; lungs clear to auscultation (poor inspiratory effort ) Cardiovascular: regular rate-rhythm; No JVD; S1 and S2, systolic murmur Gastrointestinal: No tender; soft, round Rectal: deferred Extremities: no lower extremity edema bilateral Neurologic/Psychiatric: grossly intact Skin: normal color, warm/dry; No rash, No ulcerations Other comments Scoliosis Data Review Labs Laboratory Tests 06/03/18 12:25: Ammonia 24 06/04/18 04:30: White Blood Count 4.7, Red Blood Count 3.78L, Hemoglobin 12.6, Hematocrit 37, Mean Corpuscular Volume 98, Mean Corpuscular Hemoglobin 33, Mean Corpuscular Hemoglobin Concent 34, Red Cell Distribution Width 13.9, Platelet Count 28*L, Mean Platelet Volume 12.7H, Neutrophils (%) (Auto) 60, Lymphocytes (%) (Auto) 18 , Monocytes (%) (Auto) 20H, Eosinophils (%) (Auto) 2, Basophils (%) (Auto) 0, Neutrophils # (Auto) 2.8, Lymphocytes # (Auto) 0.8L, Monocytes # (Auto) 0.9, Eosinophils # (Auto) 0.1, Basophils # (Auto) 0.0, Sodium Level 138, Potassium Level 3.3L, Chloride Level 110H, Carbon Dioxide Level 19L, Anion Gap 9, Blood Urea Nitrogen 9, Creatinine 0.61, Estimat Glomerular Filtration Rate > 60, BUN/ Creatinine Ratio 15, Glucose Level 93, Calcium Level 10.4H, Corrected Calcium 11.5H, Magnesium Level 1.3L, Total Bilirubin 2.0H, Aspartate Amino Transf (AST/ SGOT) 39H, Alanine Aminotransferase (ALT/SGPT) 12, Alkaline Phosphatase 71, Total Protein 5.7L, Albumin 2.6L, Thyroid Stimulating Hormone (TSH) 1.31 Microbiology 06/01/18 Blood Culture - Preliminary, Resulted No growth 06/01/18 Influenza Types A,B Antigen (RAY) - Final, Complete 06/01/18 Urine Culture - Final, Complete See Comments Radiology NAME: MAI KEE [facility] REC#: [id number] PT STATUS: ADM IN : 1955 PHYSICIAN: YANA ARCHIBALD DO ADMIT DATE: 06/01/18 Signed Date of Exam: 06/02/18 CHEST PA/LAT (2 VIEW) Indication: Hypoxia. Comparison: 06/01/2018 Findings: There is cardiomegaly. There is venous congestion. Lungs are clear. No pleural effusion or pneumothorax. The mediastinum is unremarkable. Impression: Cardiomegaly and mild central pulmonary venous congestion. Dictated by: Dictated on workstation # [id number] Dict: 06/02/18 1300 Trans: 06/02/18 1407 Interpreted by: ISAEL SINGH MD Electronically signed by: ISAEL SINGH MD 06/02/18 1407 A/P-Cardiology Assessment/Admission Diagnosis Dyspnea of undetermined etiology UTI with suspected sepsis - management per medical services Palpitations of undetermined etiology with associated dizziness - denies syncope Echocardiogram of Jun 02, 2018 showed LVEF 65-70% with no regional wall motion abnormalities; RV cavity size increased, appears to be vol overload, normal wall thickness; RA mod dilated; Mild to mod TR; Mod Pulmonic valve regurg; PASP approx 70 mmHg Pulmonary hypertension - PASP approx 70mmHg on echo of 06-02-18 Liver cancer (reports dx approx a year and a half ago at [facility]) - awaiting treatment Hep C - completed tx Thrombocytopenia likely r/t liver cancer Hypercalcemia - management per medical services Hypokalemia - replace Scoliosis H/O heavy ETOH abuse - reports 4 years sobriety Denies tobacco or IV drug use Clinical Quality Measures DVT/VTE Risk/Contraindication: Risk Factor Score Per Nursin RFS Level Per Nursing on Admit: 4+=Very High Contraindications-Pharm: Other *list below* Other: thrombocytopenia RUSSELL STEINER Jun 03, 2018 15:31
--- NOTE | 2018-06-03 15:48 | Occupational Therapy Eval ---
OT Evaluation-General/PLF Medical Diagnosis Admission Date Jun 01, 2018 at 17:30 Medical Diagnosis: UTI/sepsis Onset Date: Jun 01, 2018 Therapy Diagnosis Therapy Diagnosis: Debility Height/Weight Height (Feet): 5 Height (Inches): 6.00 Weight (Pounds): 101 Weight (Ounces): 9.6 Precautions Precautions/Isolations: Fall Prevention, Standard Precautions Safety Interventions: None Weight Bear Status Weight Bearing Restriction: Weight Bearing/Tolerated Referral Physician: Clary Referral Reason: Activity Tolerance, Self Care, Evaluation/Treatment, Strengthening/ROM Medical History Additional Medical History Hep C, Liver CA, Scoliosis, SOA Current History Came to hospital with SOA. Had UTI. Was unaware. Reviewed History: Yes Social History Home: Multilevel (States that she has 20 stairs inside.) Current Living Status: Friend (Pt. states that she lives with a friend. ) Entry Into Home: Ramp Steps Into Home: 0 Steps Inside Home: 20 ADL-Prior Level of Function Functional [place] Measure 0=Not Assessed/NA 4=Minimal Assistance 1=Total Assistance 5=Supervision or Setup 2=Maximal Assistance 6=Modified [place] 3=Moderate Assistance 7=Complete [place] ADL PLOF Comments Pt. reports that she is independent at home. She does not drive but her roommate does. She does her own cooking but her roommate does the cleaning. She does not use equipment. Has not had difficulty up to this point. Self Care Self Care: (Code the patient's need for assistance with bathing, dressing, using the toilet, or eating prior to the current illness, exacerbation, or injury.) Functional Cognition Functional Cognition: (Code the patient's need for assistance with planning regular tasks, such as shopping or remembering to take medicaiton prior to the current illness, exacerbation, or injury.) DME/Equipment: Shower Drive Self: No OT Current Status Subjective "I feel real good." Pt. states that she is having no pain. Appearance Pt. is in bed. Agrees to work with OT. Mental Status/Objective Patient Orientation: Person, Place, Time, Situation Attachments: IV, Oxygen Current Glasses/Contacts: Yes Upper Extremity ROM WFL Upper Extremity Strength WFL- 4/5 bilateral strength Pt. does have scoliosis which gives her kyphotic trunk. Slightly decreased shoulder flexion noted. ADL-Treatment Functional [place] Measure 0=Not Assessed/NA 4=Minimal Assistance 1=Total Assistance 5=Supervision or Setup 2=Maximal Assistance 6=Modified [place] 3=Moderate Assistance 7=Complete IndependenceIRFPAI Quality Coding Scale 6 Independent with activity with or without an assistive device 5 Patient requires set up or clean up by helper. Patient completes activity by themselves 4 Supervision or touching assist (CGA). Vevay provide cues , steadying assist 3 The helper provides less than half the effort to complete the activity 2 The helper provides more than half the effort to complete the activity 1 Dependent. The helper does all the effort to complete an activity 7 Patient refused to complete or attempt activity 9 The patient did not perform the activity before the current illness or injury 88 Not attempted due to Medical conditions or safety concerns Lower Body Dressing (FIM): 7 (Pt. able to doff/don socks independently. States that the nurse did it earlier, but pt able to demonstrate independence at this time.) Transfers (B, C, W/C) (FIM): 6 (Mod I supine-sit and sit-stand.) Pt. states that she has been eating fine. No difficulty swallowing. States that she has already had shower today. No difficulty with shower or reaching all body parts. Pt. reports her only concern is going up the 20 steps in her home. States that her friend will be there, but can't help with this. Will speak to PT. Pt. demonstrated Mod I with transfers to this OT. Able to doff/ don socks and reach feet with no difficulty. Pt. is able to transfer back to bed with no difficulty and cover self with blankets. Pt. is educated about meals on wheels but states that they are "inconsistent" in her area. Pt. lives in [place]. Pt. is also educated about calling her local grocer to see if they deliver groceries, or grocery picker operator. Pt. does state that her roommate can still do the grocery shopping for her. Pt. is also educated regarding calling the Post office and seeing if they will deliver to her door, as she states that she has a long driveway and the mailbox is as the end. These are suggestions to make items easier for pt. upon return home. Pt. demonstrates Mod I at this time with demonstrated and reported ADL skills. No OT warranted at this time due to pt's functional abilities. Will continued to monitor and return if it is felt needed before discharge home. Education OT Patient Education: Correct positioning, Modified ADL techniques, Progress toward Goal/Update tx plan, Purpose of tx/functional activities, Reviewed precautions, Rehab process, Transfer techniques Teaching Recipient: Patient Teaching Methods: Demonstration, Discussion Response to Teaching: Verbalize Understanding, Return Demonstration OT Short Term Goals Short Term Goals 1=Demonstrate adherence to instructed precautions during ADL tasks. 2=Patient will verbalize/demonstrate understanding of assistive devices/ modifications for ADL. 3=Patient will improve strength/tolerance for activity to enable patient to perform ADL's. OT Leadite Worker Goals Leadite Worker Goals Time Frame: Jun 03, 2018 Additional Goals: 1-Demonstrate ADL Tasks, 2-Verbalize Understanding 1=Demonstrate adherence to instructed precautions during ADL tasks. 2=Patient will verbalize/demonstrate understanding of assistive devices/ modifications for ADL. 3=Patient will improve strength/tolerance for activity to enable patient to perform ADL's. Pt. demonstrates Mod I with reaching feet, and ADL transfers. No functional goals at this time. OT Education/Plan Problem List/Assessment Assessment: No Skilled OT Needs ID'd Discharge Recommendations Plan/Recommendations: Discharge/Goals Met Therapy D/C Recommendations: Home Independently, Meals on Wheels Comment Pt. would benefit from walker for continued stability in stance. Target Placement Home with roommate. Treatment Plan/Plan of Care Treatment,Training & Education: Yes Treatment Duration: Jun 03, 2018 Frequency: 1 time per week Estimated Hrs Per Day: .25 hour per day Agreement: Yes Rehab Potential: Good Time/GCodes Start Time: 15:20 Stop Time: 15:35 Total Time Billed (hr/min): 15 Billed Treatment Time 1, DAYANARA KIMBROUGH OT Jun 03, 2018 15:48
[2018-06-03 15:50] VITALS: BP 128/86
[2018-06-03] MEDS ORDERED: KCL 20 MEQ TAB (K-DUR) PO NR (16:15)
[2018-06-03] MEDS: cefTRIAXone 1 GM/NS 50 ML IVPB IV SCH ×2 (16:42)
--- NOTE | 2018-06-03 17:58 | Consultation-Cardiology ---
HPI-Cardiology Cardiology Consultation: Date of Consultation 06/03/18 Time Seen by a Provider: 17:20 Date of Admission Attending Physician Rosa Archibald DO Admitting Physician Kath Raphael MD Consulting Physician EMERITA ZAMORA MD, MA, FACP, FACC, [facility] [facility], CCDS Physician requesting consult: Dr Means Date consult requested by Dr Means: 06/03/18 HPI: Chief Complaint: CC: Dyspnea, Palpitations Ms. Kee is a 62 year old female admitted to [facility] from the ED. She states she came into the ED on 06-01-18 d/t increasing shortness of breath, fever and chills. She reports she continues to have SOB and feels it has not improved since admission. She denies any n/v/d. She does report constipation. She denies any chest pain. She reports chronic bilat LE edema which started approx 4 months ago for which she has been taking Lasix and Aldactone. She reports the LE edema has improved. She reports at home she has been having episodes of palpitations for approx the last 9 months. She reports they occur several times during the day and last for approx 10-15 minutes. She reports she feels SOB and lightheaded. She reports the episodes start suddenly and gradually resolve. She denies any r/t activity or emotional stress. She denies any syncope or near syncope. She reports she has continued to have palpitations while she has been in the hospital. Review of Systems-Cardiology Review of Systems Constitutional: chills, fever, lightheadedness, malaise Eyes: No vision change Ears/Nose/Throat: No epistaxis, No recent hearing loss Respiratory: As described under HPI Cardiovascular: As described under HPI Gastrointestinal: constipation; No diarrhea, No nausea, No vomiting Genitourinary: No dysuria, No hematuria : No Musculoskeletal: other (chronic back; scoliosis) Skin: No rash, No ulcerations Psychiatric/Neurological: other (fine tremors of her hands which started approx 9 months ago); No anxiety, No depression, No seizure Hematologic: No bleeding abnormalities BKW-Havfyl-Gjqres Hx Patient Social History Alcohol Use: Past History Recreational Drug Use: No Smoking Status: Never a Smoker 2nd Hand Smoke Exposure: No Recent Foreign Travel: No Recent Infectious Disease Expo: No Hospitalization with Isolation: Denies Physical Abuse Screen: No Sexual Abuse: No Immunizations Up To Date Date of Pneumonia Vaccine: May 30, 1998 Past Medical History PMH As described under Assessment. Family Medical History Family Medical History: She denies any family h/o CAD or SCD. Family History: Patient reports no known family medical history. Allergies and Home Medications Allergies Coded Allergies: No Known Drug Allergies (Unverified , 11/14/16) Home Medications Furosemide 20 Mg Tablet, 20 MG PO DAILY, (Reported) Spironolactone 100 Mg Tablet, 100 MG PO DAILY, (Reported) Patient Home Medication List Home Medication List Reviewed: Yes Physical Exam-Cardiology Physical Exam Vital Signs/I&O 06/03/18 06/03/18 06/03/18 06/03/18 07:00 07:24 08:00 08:00 Temp 98.1 Pulse 88 91 Resp 20 B/P (MAP) 118/53 (74) Pulse Ox 95 O2 Delivery Nasal Cannula Nasal Cannula Nasal Cannula O2 Flow Rate 2.00 2.50 3.00 06/03/18 06/03/18 12:00 15:50 Temp 97.6 98.6 Pulse 91 91 Resp 20 16 B/P (MAP) 104/68 (80) 128/86 (100) Pulse Ox 95 95 O2 Delivery Nasal Cannula Nasal Cannula O2 Flow Rate 2.50 2.50 06/03/18 00:00 Intake Total 2340 ml Output Total 701 ml Balance 1639 ml Capillary Refill : Less Than 3 Seconds Constitutional: AAO x 3, well-developed, well-nourished HEENT: PERRL, hearing is well preserved, oral hygience is good; No xanthelasmas are seen Neck: No carotid bruit; carotid pulses are 2 + bilaterally Respiratory: No accessory muscle use, No respiratory distress; lungs clear to auscultation (poor inspiratory effort ) Cardiovascular: regular rate-rhythm; No JVD; S1 and S2, systolic murmur Gastrointestinal: No tender; soft, round Rectal: deferred Extremities: no lower extremity edema bilateral Neurologic/Psychiatric: grossly intact Skin: normal color, warm/dry; No rash, No ulcerations Data Review Labs Laboratory Tests 06/03/18 06:17: White Blood Count 7.1, Red Blood Count 4.21L, Hemoglobin 14.2, Hematocrit 41, Mean Corpuscular Volume 98, Mean Corpuscular Hemoglobin 34, Mean Corpuscular Hemoglobin Concent 35, Red Cell Distribution Width 14.1, Platelet Count 35*L, Mean Platelet Volume 12.6H, Neutrophils (%) (Auto) 62, Lymphocytes (%) (Auto) 18 , Monocytes (%) (Auto) 18H, Eosinophils (%) (Auto) 1, Basophils (%) (Auto) 1, Neutrophils # (Auto) 4.4, Lymphocytes # (Auto) 1.3, Monocytes # (Auto) 1.3H, Eosinophils # (Auto) 0.1, Basophils # (Auto) 0.0, Neutrophils % (Manual) 57, Lymphocytes % (Manual) 22, Monocytes % (Manual) 18, Eosinophils % (Manual) 1, Basophils % (Manual) 0, Band Neutrophils 2, Blood Morphology Comment NORMAL, Sodium Level 139, Potassium Level 3.5L, Chloride Level 111H, Carbon Dioxide Level 20L, Anion Gap 8, Blood Urea Nitrogen 14, Creatinine 0.73, Estimat Glomerular Filtration Rate > 60, BUN/Creatinine Ratio 19, Glucose Level 92, Calcium Level 10.6H, Corrected Calcium 11.4H, Total Bilirubin 2.2H, Aspartate Amino Transf (AST/SGOT) 26, Alanine Aminotransferase (ALT/SGPT) 8, Alkaline Phosphatase 77, Total Protein 6.5, Albumin 3.0L 06/03/18 12:25: Ammonia 24 Microbiology 06/01/18 Blood Culture - Preliminary, Resulted No growth 06/01/18 Influenza Types A,B Antigen (RAY) - Final, Complete 06/01/18 Urine Culture - Final, Complete See Comments A/P-Cardiology Assessment/Admission Diagnosis Dyspnea cor pulmonale of undetermined etiology (see echo report below). Recent or chronic pulm embolism is suspected UTI with suspected sepsis - management per medical services Palpitations of undetermined etiology with associated dizziness - denies syncope Echocardiogram of Jun 02, 2018 showed LVEF 65-70% with no regional wall motion abnormalities; RV cavity size increased, appears to be vol overload, normal wall thickness; RA mod dilated; Mild to mod TR; Mod Pulmonic valve regurg; PASP approx 70 mmHg Pulmonary hypertension - PASP approx 70mmHg on echo of 06-02-18 Liver cancer (reports dx approx a year and a half ago at [facility]) - awaiting treatment Hep C - completed tx Thrombocytopenia likely r/t liver cancer Hypercalcemia - management per Medical Svce Hypokalemia - replace Scoliosis H/O heavy ETOH abuse - reports 4 years sobriety Denies tobacco or IV drug use Discussion and Recomendations * Complex management * Given h/o CA and evidence of cor pulmonale on echo, we suspect pulm embolism ( recent or chronic) * She is not suitable for heparin or enoxaparin, given marked thrombocytopenia * We recommend Hematology consult to see if it would be reasonable to offer therapy with apixaban. I have informed Dr Means of this Clinical Quality Measures DVT/VTE Risk/Contraindication: Risk Factor Score Per Nursin RFS Level Per Nursing on Admit: 4+=Very High Contraindications-Pharm: Other *list below* Other: thrombocytopenia EMERITA ZAMORA MD FACP FAC CCDS Jun 03, 2018 17:58
--- NOTE | 2018-06-03 19:18 | Diagnostic Imaging Report ---
PROCEDURE: US Abdomen, limited. TECHNIQUE: Multiple real-time grayscale images were obtained over the abdomen in various projections. INDICATION: Abdominal distention. FINDINGS: Limited images were obtained to evaluate for ascites. There was no significant abdominal ascites. IMPRESSION: No significant abdominal ascites. Dictated by: Dictated on workstation # [id number]
[2018-06-03 19:45] VITALS: BP 104/77
[2018-06-03] MEDS: LACTULOSE SYRUP 10GM/15ML (ENULOSE) 30ML UDC PO SCH (20:03)
[2018-06-03] MEDS: SENNA W/DOCUSATE (SENOKOT S) TABLET PO SCH (20:03)
[2018-06-04 00:24] VITALS: BP 106/69
[2018-06-04 04:09] VITALS: BP 117/84
[2018-06-04 05:10] LABS: BASOPHILS % (AUTO) 0 % (0-10); EOSINOPHILS # (AUTO) 0.1 10^3/uL (0.0-0.3); EOSINOPHILS % (AUTO) 2 % (0-10); HEMATOCRIT 37 % (35-52); HEMOGLOBIN 12.6 G/DL (11.5-16.0); LYMPHOCYTES # (AUTO) 0.8 X 10^3 (1.0-4.0); LYMPHOCYTES % (AUTO) 18 % (12-44); MEAN CORPUSCULAR HEMOGLOBIN 33 PG (25-34); MEAN CORPUSCULAR HGB CONC 34 G/DL (32-36); MEAN CORPUSCULAR VOLUME 98 FL (80-99); MEAN PLATELET VOLUME 12.7 FL (7.4-10.4); MONOCYTES # (AUTO) 0.9 X 10^3 (0.0-1.0); MONOCYTES % (AUTO) 20 % (0-12); NEUTROPHILS # (AUTO) 2.8 X 10^3 (1.8-7.8); NEUTROPHILS % (AUTO) 60 % (42-75); RED BLOOD COUNT 3.78 10^6/uL (4.35-5.85); RED CELL DISTRIBUTION WIDTH 13.9 % (10.0-14.5); WHITE BLOOD COUNT 4.7 10^3/uL (4.3-11.0)
[2018-06-04 05:11] LABS: PLATELET COUNT 28 10^3/uL (130-400)
[2018-06-04 05:45] LABS: ALANINE AMINOTRANSFERASE 12 U/L (0-55); ALBUMIN 2.6 GM/DL (3.2-4.5); ALKALINE PHOSPHATASE 71 U/L (40-136); BUN/CREATININE RATIO 15; CALCIUM 10.4 MG/DL (8.5-10.1); CARBON DIOXIDE 19 MMOL/L (21-32); CHLORIDE 110 MMOL/L (98-107); CREATININE SERUM 0.61 MG/DL (0.60-1.30); GFR ESTIMATED > 60; GLUCOSE 93 MG/DL (70-105); MAGNESIUM 1.3 MG/DL (1.8-2.4); POTASSIUM 3.3 MMOL/L (3.6-5.0); SODIUM 138 MMOL/L (135-145); TOTAL PROTEIN 5.7 GM/DL (6.4-8.2)
[2018-06-04] MEDS ORDERED: NS 250 ML (IVPB) BAG IV ONE (07:30)
[2018-06-04] MEDS ORDERED: IOHEXOL 350 MG/ML 150 ML (OMNIPAQUE 350) VIAL IV ONE (07:30)
--- NOTE | 2018-06-04 07:58 | Pulmonary Consultation ---
History of Present Illness History of Present Illness Date of Consultation 06/04/18 07:51 Time Seen by Provider: 07:55 Date of Admission History of Present Illness 62yo with hx of Hep C and recent dx of liver cancer admitted to 4th floor on 06/01 secondary to worsening SOB, anxiety, fever/chills. She was found to be hypoxic with Sp02 89% prior to admission. influenza is negative. She has also had bilateral LE edema. SHe takes lasix and Aldactone at home. I am consulted for pulmonary management. Allergies and Home Medications Allergies Coded Allergies: No Known Drug Allergies (Unverified , 11/14/16) Home Medications Furosemide 20 Mg Tablet, 20 MG PO DAILY, (Reported) Spironolactone 100 Mg Tablet, 100 MG PO DAILY, (Reported) Past Hophwkh-Ybrqkf-Wzlmow Hx Patient Social History Alcohol Use: Past History Recreational Drug Use: No Smoking Status: Never a Smoker 2nd Hand Smoke Exposure: No Recent Foreign Travel: No Contact w/Someone Who Travel: No Recent Infectious Disease Expo: No Recent Hopitalizations: No Immunizations Up To Date Date of Pneumonia Vaccine: May 30, 1998 Seasonal Allergies Seasonal Allergies: No Past Medical History Surgeries: Yes (dental) Respiratory: No Cardiac: No Hypertension Neurological: No : No Genitourinary: No Gastrointestinal: Yes Hepatitis, Cirrhosis Musculoskeletal: Yes Scoliosis Endocrine: No HEENT: No Cancer: Yes Liver Did You Recieve Any Treatments: No Psychosocial: No Integumentary: No Blood Disorders: Yes (HEP C) Adverse Reaction/Blood Tranf: No Family Medical History Patient reports no known family medical history. No Pertinent Family Hx Sepsis Event Evaluation Height, Weight, BMI Height: 5'6.00" Weight: 101lbs. 9.6oz. 46.912608bf; 16.4 BMI Method:Stated Exam Exam Vital Signs Date Time Temp Pulse Resp B/P (MAP) Pulse Ox O2 Delivery O2 Flow Rate FiO2 06/04/18 04:09 98.4 94 16 117/84 (95) 94 Nasal Cannula 2.50 06/04/18 01:00 100 06/04/18 00:24 99.6 99 16 106/69 (81) 94 Nasal Cannula 2.50 06/03/18 19:48 Nasal Cannula 3.00 06/03/18 19:45 99.5 99 16 104/77 (86) 92 Nasal Cannula 2.50 06/03/18 19:00 100 06/03/18 15:50 98.6 91 16 128/86 (100) 95 Nasal Cannula 2.50 06/03/18 12:00 97.6 91 20 104/68 (80) 95 Nasal Cannula 2.50 06/03/18 08:00 Nasal Cannula 3.00 06/03/18 08:00 98.1 91 20 118/53 (74) 95 Nasal Cannula 2.50 I & O 06/04/18 07:00 Intake Total 2370 ml Output Total 1000 ml Balance 1370 ml Height & Weight Height: 5'6.00" Weight: 101lbs. 9.6oz. 46.470222ef; 16.4 BMI Method:Stated General Appearance: No Apparent Distress, WD/WN, Chronically ill, Cachetic HEENT: PERRL/EOMI, Normal ENT Inspection, Other (oropharynx somewhat dry) Neck: Normal Inspection Respiratory: Chest Non Tender, Lungs Clear, Normal Breath Sounds, No Accessory Muscle Use, No Respiratory Distress, Decreased Breath Sounds (bases) Cardiovascular: Regular Rate, Rhythm, No Edema, No Gallop, No JVD, No Murmur, Normal Peripheral Pulses Capillary Refill: Less Than 3 Seconds Gastrointestinal: non tender, soft Extremity: Normal Inspection, No Pedal Edema Neurologic/Psychiatric: Alert, Oriented x3, No Motor/Sensory Deficits, Normal Mood/Affect Skin: Normal Color, Warm/Dry Results Lab Laboratory Tests 06/03/18 06:17 06/04/18 04:30 Assessment/Plan Assessment/Plan Pulmonary edema with hypoxia -Continue Lasix Pneumonia/atelectasis RLL vs lung mass -CT of chest reviewed - awaiting official report -Continue Rocephin -PT will need repeat CT scan of chest 8wks after discharge 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 HARRY NUNEZ DO Jun 04, 2018 07:58
[2018-06-04 08:00] VITALS: BP 106/82
[2018-06-04] MEDS: LACTULOSE SYRUP 10GM/15ML (ENULOSE) 30ML UDC PO SCH ×3 (09:25→21:47)
[2018-06-04] MEDS: SPIRONOLACTONE 25 MG (ALDACTONE) TAB PO SCH (09:25)
[2018-06-04] MEDS: SENNA W/DOCUSATE (SENOKOT S) TABLET PO SCH ×2 (09:25→21:47)
[2018-06-04] MEDS: FUROSEMIDE 20 MG (LASIX) TAB PO SCH (09:25)
--- NOTE | 2018-06-04 10:17 | Progress Note-Cardiology ---
Cardiology SOAP Progress Note Subjective: Sitting up in a chair at the bedside. States she feels her breathing is better this morning. No c/o CP, palpitations, syncope or near syncope. Objective: I&O/Vital Signs 06/04/18 06/04/18 06/04/18 06/04/18 04:09 07:00 08:00 08:00 Temp 98.4 98.7 Pulse 94 89 81 Resp 16 18 B/P (MAP) 117/84 (95) 106/82 (90) Pulse Ox 94 95 O2 Delivery Nasal Cannula Nasal Cannula Nasal Cannula O2 Flow Rate 2.50 2.50 3.00 06/04/18 06/04/18 06/04/18 12:00 13:00 14:33 Temp 99.3 Pulse 85 86 Resp 20 B/P (MAP) 93/63 (73) Pulse Ox 95 O2 Delivery Nasal Cannula Nasal Cannula O2 Flow Rate 2.50 2.50 06/04/18 00:00 Intake Total 1070 ml Output Total 800 ml Balance 270 ml Weight (Pounds): 101 Weight (Ounces): 9.6 Weight (Calculated Kilograms): 46.910797 Constitutional: AAO x 3, well-developed, well-nourished Respiratory: No accessory muscle use, No respiratory distress; lungs clear to auscultation (poor inspiratory effort ), other (dimninished lower lobes bilat) Cardiovascular: regular rate-rhythm; No JVD; S1 and S2, systolic murmur Gastrointestional: No tender; soft, round Extremities: no lower extremity edema bilateral Neurologic/Psychiatric: grossly intact Skin: normal color, warm/dry; No rash, No ulcerations Results/Procedures: Labs Laboratory Tests 06/04/18 04:30: White Blood Count 4.7, Red Blood Count 3.78L, Hemoglobin 12.6, Hematocrit 37, Mean Corpuscular Volume 98, Mean Corpuscular Hemoglobin 33, Mean Corpuscular Hemoglobin Concent 34, Red Cell Distribution Width 13.9, Platelet Count 28*L, Mean Platelet Volume 12.7H, Neutrophils (%) (Auto) 60, Lymphocytes (%) (Auto) 18 , Monocytes (%) (Auto) 20H, Eosinophils (%) (Auto) 2, Basophils (%) (Auto) 0, Neutrophils # (Auto) 2.8, Lymphocytes # (Auto) 0.8L, Monocytes # (Auto) 0.9, Eosinophils # (Auto) 0.1, Basophils # (Auto) 0.0, Sodium Level 138, Potassium Level 3.3L, Chloride Level 110H, Carbon Dioxide Level 19L, Anion Gap 9, Blood Urea Nitrogen 9, Creatinine 0.61, Estimat Glomerular Filtration Rate > 60, BUN/ Creatinine Ratio 15, Glucose Level 93, Calcium Level 10.4H, Corrected Calcium 11.5H, Magnesium Level 1.3L, Total Bilirubin 2.0H, Aspartate Amino Transf (AST/ SGOT) 39H, Alanine Aminotransferase (ALT/SGPT) 12, Alkaline Phosphatase 71, Total Protein 5.7L, Albumin 2.6L, Thyroid Stimulating Hormone (TSH) 1.31 Microbiology 06/01/18 Blood Culture - Preliminary, Resulted No growth 06/01/18 Influenza Types A,B Antigen (RAY) - Final, Complete 06/01/18 Urine Culture - Final, Complete See Comments A/P: Assessment: Dyspnea cor pulmonale of undetermined etiology (see echo report below). Recent or chronic pulm embolism is suspected UTI with suspected sepsis - management per medical services Palpitations of undetermined etiology with associated dizziness - denies syncope Echocardiogram of Jun 02, 2018 showed LVEF 65-70% with no regional wall motion abnormalities; RV cavity size increased, appears to be vol overload, normal wall thickness; RA mod dilated; Mild to mod TR; Mod Pulmonic valve regurg; PASP approx 70 mmHg Pulmonary hypertension - PASP approx 70mmHg on echo of 06-02-18 Liver cancer (reports dx approx a year and a half ago at [facility]) - awaiting treatment Hep C - completed tx Thrombocytopenia likely r/t liver cancer Hypercalcemia - management per Medical Svce Hypokalemia - replace Scoliosis H/O heavy ETOH abuse - reports 4 years sobriety Denies tobacco or IV drug use Plan: * Complex management * Given h/o CA and evidence of cor pulmonale on echo, we suspect pulm embolism ( recent or chronic) * She is not suitable for heparin or enoxaparin, given marked thrombocytopenia * We recommend Hematology consult to see if it would be reasonable to offer therapy with apixaban. Dr. Bentley has informed Dr Means of this * Awaiting CT results * Electrolyte abnormalities - replace * Monitor lab Physician Assessment Physician Assessment Denies cp or palp or syncope. Shortness of breath is improving slowly Lungs: fair bilat air entry, prolonged exp phase Cor: reg Ext: no c/c/e A&R * As documented in our note above that I updated (italics) and as noted below * OAC for PE prophylaxis is recommended, if not otherwise contraindicated. I have discussed this with Dr Means * Monitor labs * Advised to quit smoking immediately and completely RUSSELL STEINER ADULT CARE PROVIDER Jun 04, 2018 10:17 EMERITA BENTLEY MD [facility] CCD[facility] Jun 04, 2018 15:47
[2018-06-04] MEDS ORDERED: KCL 20 MEQ TAB (K-DUR) PO NR (10:30)
--- NOTE | 2018-06-04 10:41 | Progress Note-Hospitalist ---
OLMEDOJOEY 06/04/18 1041: Subjective HPI/CC On Admission Date Seen by Provider: Jun 04, 2018 Time Seen by Provider: 10:00 Subjective/Events-last exam Patient was able to get up and go to the bathroom on her own Using O2 all the time Severe scoliosis noted prominence of the right Chronic back pain is reported CT scan may have revealed a new liver mass so we are in the midst of awaiting Nela Clark and Juan recs Romel still on board Low grade fever noted Focused Exam Lactate Level Objective Exam Vital Signs Vital Signs Date Time Temp Pulse Resp B/P (MAP) Pulse Ox O2 Delivery O2 Flow Rate FiO2 06/04/18 16:40 99.4 92 20 103/67 (79) 97 Nasal Cannula 2.50 Capillary Refill : Less Than 3 Seconds General Appearance: No Apparent Distress, WD/WN, Chronically ill, Cachetic Respiratory: Chest Non Tender, No Accessory Muscle Use, No Respiratory Distress , Decreased Breath Sounds Cardiovascular: Regular Rate, Rhythm, No Edema, No Gallop, No JVD, No Murmur, Normal Peripheral Pulses Neurologic/Psychiatric: Alert, Oriented x3, No Motor/Sensory Deficits, Normal Mood/Affect Results/Procedures Lab Laboratory Tests 06/04/18 04:30 Patient resulted labs reviewed. Assessment/Plan Assessment and Plan Assess & Plan/Chief Complaint Assessment: Hypoxia with negative CXR except pulmonary congestion but CT chest revealing RLL infiltrate Severe valvular heart disease on ECHO Pulmonary HTN Abnormal UA w/3 mixed bacteria not c/w true infection Fever of unknown source Previous alcoholic quit 4 yrs ago Thrombocytopenia Liver cancer w/new mets in the liver on CT Cirrhosis Plan: Romel empirically Consult Dr Bentley for valvular disease Consult Dr Martinez for low platelets and cancer management SW consult for placement since she appears to need NH Appreciate Dr Clark's recs Diagnosis/Problems Diagnosis/Problems (1) Fever Status: Acute (2) Pneumonia Status: Acute Qualifiers: Pneumonia type: due to unspecified organism Laterality: right Lung location: lower lobe of lung Qualified Codes: J18.1 - Lobar pneumonia, unspecified organism (3) Hypoxia Status: Acute (4) Liver cancer Status: Chronic Qualifiers: Liver malignancy type: hepatocellular carcinoma Qualified Codes: C22.0 - Liver cell carcinoma (5) Advanced cirrhosis of liver Status: Chronic (6) 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 (7) Abnormal urinalysis Status: Acute (8) Pulmonary arterial hypertension Status: Acute (9) Weakness Status: Acute (10) Debility Status: Acute (11) Poor prognosis Status: Acute (12) Sepsis Status: Acute Qualifiers: Sepsis type: sepsis due to unspecified organism Qualified Codes: A41.9 - Sepsis, unspecified organism (13) Nausea vomiting and diarrhea Status: Acute (14) Thrombocytopenia Status: Chronic (15) Coagulopathy Status: Chronic (16) Scoliosis Status: Chronic Qualifiers: Scoliosis type: unspecified scoliosis Spinal region: thoracic Qualified Codes: M41.9 - Scoliosis, unspecified Clinical Quality Measures DVT/VTE Risk/Contraindication: Risk Factor Score Per Nursin RFS Level Per Nursing on Admit: 4+=Very High Contraindications-Pharm: Other *list below* Other: thrombocytopenia PHAM THOMAS MED STUDENT 06/04/18 1057: Subjective Subjective/Events-last exam Patient slept well and is not experiencing pain this morning She states that she is having diarrhea but no N/V She has felt a little short of breath She is also having congested sinuses Objective Exam General Appearance: No Apparent Distress, WD/WN Respiratory: Chest Non Tender, No Accessory Muscle Use, No Respiratory Distress , Decreased Breath Sounds Cardiovascular: Regular Rate, Rhythm, No Edema, No Gallop, No JVD, No Murmur, Normal Peripheral Pulses Neurologic/Psychiatric: Alert, Oriented x3, No Motor/Sensory Deficits, Normal Mood/Affect Skin: Normal Color, Warm/Dry Assessment/Plan Assessment and Plan Assess & Plan/Chief Complaint Assessment: 1) Sepsis 2) UTI 3) Liver cancer Plan: 1) Continue IV abx 2) Consult oncologist JOEY OLMEDO DO Jun 04, 2018 10:41 PHAM THOMAS MED STUDENT Jun 04, 2018 10:57
--- NOTE | 2018-06-04 10:44 | Diagnostic Imaging Report ---
PROCEDURE: CT angiography of the chest with contrast. TECHNIQUE: Multiple contiguous axial images were obtained through the chest after uneventful bolus administration of intravenous contrast. 2D reconstructed CTA MIP acquisitions were also performed. INDICATION: Hypoxia. The previous CTA chest exam performed on 04/11/2016 noted cardiomegaly and dilatation of the pulmonary arteries. The dilated appearance of the pulmonaries did suggest pulmonary arterial hypertension. There is no evidence for a pulmonary embolus. On this exam, the cardiomegaly and the dilated pulmonaries are again evident and essentially no different. There is still no defect within the pulmonaries to indicate a pulmonary embolus. Aorta is not abnormally dilated and there is no sign of a dissection either. In the interval since the previous study however right lower lobe pneumonia/atelectasis and small right pleural effusion have developed. The right upper lobe and left lung are generally clear. There is no mediastinal or hilar adenopathy. Thyroid gland was not well visualized but appears to be generally unremarkable. The previous study did show numerous esophageal varices. The images through the upper abdomen also reveal that the liver had a cirrhotic appearance and that there was splenomegaly. Those findings are again evident on this study. However in the interval since the previous exam, a 2.6 x 2.8 cm area of enhancement has developed along the periphery of the right lobe of the liver. This finding is worrisome for neoplastic disease. I would recommend that MRI of the abdomen be performed to better characterize this finding. The cholelithiasis noted on the previous exam is again evident. There is no sign of acute cholecystitis. The splenomegaly seen on the previous study is also unchanged. The bone windows show no sign of a fracture or a destructive lesion. IMPRESSION: 1. There is cardiomegaly and dilatation of the pulmonary arteries but there is no defect within the pulmonary arteries to indicate a pulmonary embolism. 2. There is right lower lobe pneumonia/atelectasis and small right pleural effusion. 3. The appearance of the liver does suggest cirrhosis. There are esophageal varices and splenomegaly. The enhancing lesion in the periphery of the right lobe of the liver, which has developed in the interval since the prior exam, is worrisome for neoplastic disease. MRI would be recommended for further study. 4. There is cholelithiasis without evidence for acute cholecystitis. Dictated by: Dictated on workstation # [id number]
[2018-06-04] MEDS: MAGNESIUM 1 GM/100 ML IVPB 100 ML IV SCH ×2 (10:54→12:27)
--- NOTE | 2018-06-04 11:16 | Physical Therapy Daily Note ---
PT Daily Note-Current Subjective Patient awake in bed watching tv when PT arrived. Pt stated she has been up on her own walking but agreed to get up with PT. Pain Numeric Pain Scale: 0-No Pain Location: No Pain Reported Mental Status Patient Orientation: Normal For Age Attachments: Oxygen, IV Transfers Functional [place] Measure 0=Not Assessed/NA 4=Minimal Assistance 1=Total Assistance 5=Supervision or Setup 2=Maximal Assistance 6=Modified [place] 3=Moderate Assistance 7=Complete IndependenceIRFPAI Quality Coding Scale 6 Independent with activity with or without an assistive device 5 Patient requires set up or clean up by helper. Patient completes activity by themselves 4 Supervision or touching assist (CGA). [place] provide cues , steadying assist 3 The helper provides less than half the effort to complete the activity 2 The helper provides more than half the effort to complete the activity 1 Dependent. The helper does all the effort to complete an activity 7 Patient refused to complete or attempt activity 9 The patient did not perform the activity before the current illness or injury 88 Not attempted due to Medical conditions or safety concerns Transfers (B, C, W/C) (FIM): 7 Scootin Rollin Supine to/from Sit: 7 Sit to/from Stand: 7 Weight Bearing Right Lower Extremity: Right Full Weight Bearing Left Lower Extremity: Left Full Weight Bearing Gait Training Gait (FIM): 7 Distance (FIM): 3=150 ft Distance: 200' Gait Level of Assist: 7 Gait Assistive Device: None Assessment Pt was able to ambulate for 200' with out the use of an AD. Patient did not show any signs of fatigue and said that she felt good while walking. PT Retirement Goals Retirement Goals PT Retirement Goals Time Frame: Jun 07, 2018 Transfers (B,C,W/C) (FIM): 7 Gait (FIM): 7 Gait distance (FIM): 3=150 ft Distance: >200 Gait Level of Assist: 7 Gait Assistive Device: None PT Plan Problem List Problem List: Activity Tolerance, Functional Strength, Safety, Balance, Gait, Transfer, Bed Mobility, ROM Treatment/Plan Treatment Plan: Discontinue PT (nursing to ambulate PRN) Treatment Plan: Bed Mobility, Education, Functional Strength, Gait, Safety, Therapeutic Exercise, Transfers Treatment Duration: Jun 07, 2018 Frequency: 5 times per week Estimated Hrs Per Day: .25 hour per day Patient and/or Family Agrees t: Yes Time/GCodes Time In: 1001 Time Out: 1011 Total Billed Treatment Time: 10 Total Billed Treatment 1 visit FA - 10' YG JACOBSEN PT Jun 04, 2018 11:16
[2018-06-04 12:00] VITALS: BP 93/63
[2018-06-04] MEDS: cefTRIAXone 1 GM/NS 50 ML IVPB IV SCH ×2 (16:14)
[2018-06-04 16:40] VITALS: BP 103/67
[2018-06-04 19:55] VITALS: BP 102/74
--- NOTE | 2018-06-04 22:52 | CONSULTATION REPORT ---
DATE OF SERVICE: 06/04/2018 REFERRING PHYSICIAN: Tere Means DO. PRIMARY PHYSICIAN: Rosa Archibald DO. The patient is admitted to room 432. IMPRESSION: 1. A 62-year-old female admitted to the hospital with shortness of breath, fever, body aches and cough for few days prior to admission. She was seen at the urgent care in [place] and referred to [facility] because of hypoxia. The patient mentioned that she was having fevers to more than 102 degrees Fahrenheit at home. She was evaluated at the emergency room and admitted to the hospital for further management to rule out possible sepsis as she was tachycardic also. PAST MEDICAL HISTORY: Significant for hepatitis C, which was treated within the last year with a cure. She has history of cirrhosis secondary to hepatitis C and alcoholic liver disease with portal hypertension and splenomegaly as well as esophageal varices. She has not had acute bleeding from the varices. She was diagnosed with hepatocellular cancer in 10/2016 and was recommended a liver directed therapy. As the patient did not have insurance, she could not get in consultation at [facility] and she quit following up with physicians in November 2016. PAST MEDICAL HISTORY: Significant for hepatitis C as mentioned above, which was treated recently with cure. 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 History of hypertension in the past. History of scoliosis. Pulmonary hypertension diagnosed recently. SOCIAL HISTORY: The patient is . She lives in [facility] with an elderly female whom she is helping to take care of. She does not have a house of her own. She has 6 children and 6 stepchildren, but does not have any contact with any of them. She does not have any other family in this area. She denied any tobacco use, but has significant alcohol abuse in the past. She has been sober for the past few years. FAMILY HISTORY: Significant for colon cancer in both the paternal and maternal grandfathers. Maternal grandfather also has history of thrombosis. No other significant family history. PHYSICAL EXAMINATION: Today showed elderly female, thin appearing, awake and answering questions appropriately, in no acute distress. VITAL SIGNS: Temperature was 99.4, pulse rate of 92, respiratory rate of 20, blood pressure 103/67 with oxygen saturation of 97% on 2.5 liters of oxygen by nasal cannula. HEENT: Normocephalic, extraocular muscles intact, conjunctivae pink, sclera anicteric, oral mucosa moist. NECK: Supple, with no JVD. No cervical, supraclavicular or axillary lymphadenopathy palpable. CHEST: Symmetrical. LUNGS: Fairly clear to auscultation without wheezes or rales. HEART: Regular in rate and rhythm. No murmurs or gallops heard. ABDOMEN: Soft, nontender with no hepatomegaly. Spleen was palpable below the costal margin. EXTREMITIES: Showed no edema. NEUROLOGIC: Showed no focal motor deficits. LABORATORY DATA: CBC done today showed WBC 4.7, hemoglobin 12.6 and platelet count 28,000 with neutrophil count 2.8 and lymphocyte count 0.8. At the time of admission, WBC was 13.1 with hemoglobin 15.6 and platelet count 55,000 with neutrophil count 9.8 and lymphocyte count 1.3. Chemistry panel today showed potassium level of 3.3 and chloride 90. BUN was 9 and creatinine 0.61 with GFR more than 60 mL per minute. Measured calcium was 10.4 and corrected calcium was 11.5. Serum magnesium was 1.3. Total bilirubin was 2.0 with AST of 39 and albumin of 2.6. The rest of liver function studies were within normal limits. Protime done at the time of admission on 06/01/2018 was 15.1 with INR of 1.2. Urine showed 3+ leukocyte esterase and nitrite positive with 10 to 25 WBCs and moderate bacteria as well as moderate yeast. Urine culture showed 20,000 colony forming units per mL of 3 or more gram positive isolate suggesting probable contamination with skin rodriguez. No susceptibility was performed. Influenza screen was negative and blood cultures have shown no growth. A CT angiogram of the chest done on 06/04/2018 showed cardiomegaly and dilatation of pulmonary arteries, but no defect within the pulmonary arteries to indicate a PE. Right lower lobe pneumonia/atelectasis and small right pleural effusion. Appearance of the liver suggests cirrhosis. Esophageal varices and splenomegaly seen. Enhancing lesion in the periphery of the right lobe of the liver, which has developed in the interval since the previous examination from 04/11/2016 and is worrisome for neoplastic disease. MRI of the liver was recommended for further study. Cholelithiasis without acute cholecystitis. IMPRESSION: 1. Thrombocytopenia, most likely due to splenomegaly and probably worsened by ceftriaxone. 2. History of hepatitis C and cirrhosis with portal hypertension and splenomegaly. 3. Hepatocellular cancer diagnosed from a liver biopsy in October 2016. The patient has not taken any treatment for this. Now has evidence of a new lesion in the right lobe. 4. Probable right lower lobe pneumonia and urinary tract infection causing the febrile illness and symptoms at the time of admission. 5. Probable hepatopulmonary syndrome with pulmonary hypertension. RECOMMENDATIONS: 1. Consider alternate antibiotics other than cephalosporins or penicillins for treatment of pneumonia/UTI as these agents could worsen the thrombocytopenia. 2. The patient will need an MRI of the liver for evaluation of hepatocellular cancer. She will also need alpha fetoprotein level. 3. Once she is stable from the infectious standpoint and abdominal MRI results are available, we will discuss about further treatment options. 4. director emergency services consult regarding her social situation and for discharge planning. 5. I will follow the patient with you and make appropriate recommendations. Job ID: [id number] DocumentID: [id number] Dictated Date: 06/04/2018 18:33:02 Dynamic Balancer Date: 06/04/2018 22:51:07 Dictated By: NANCY FAULKNER MD
[2018-06-05 00:08] VITALS: BP 101/71
[2018-06-05 04:35] VITALS: BP 111/74
[2018-06-05 06:48] LABS: BUN/CREATININE RATIO 16; CALCIUM 10.5 MG/DL (8.5-10.1); CARBON DIOXIDE 24 MMOL/L (21-32); CHLORIDE 108 MMOL/L (98-107); CREATININE SERUM 0.58 MG/DL (0.60-1.30); GFR ESTIMATED > 60; GLUCOSE 93 MG/DL (70-105); MAGNESIUM 1.4 MG/DL (1.8-2.4); POTASSIUM 3.9 MMOL/L (3.6-5.0); SODIUM 138 MMOL/L (135-145)
[2018-06-05 07:49] LABS: BASOPHILS % (AUTO) 1 % (0-10); EOSINOPHILS # (AUTO) 0.1 10^3/uL (0.0-0.3); EOSINOPHILS % (AUTO) 2 % (0-10); HEMATOCRIT 38 % (35-52); HEMOGLOBIN 13.2 G/DL (11.5-16.0); LYMPHOCYTES % (AUTO) 22 % (12-44); MEAN CORPUSCULAR HEMOGLOBIN 34 PG (25-34); MEAN CORPUSCULAR HGB CONC 35 G/DL (32-36); MEAN CORPUSCULAR VOLUME 98 FL (80-99); MEAN PLATELET VOLUME 12.6 FL (7.4-10.4); MONOCYTES # (AUTO) 0.9 X 10^3 (0.0-1.0); MONOCYTES % (AUTO) 20 % (0-12); NEUTROPHILS # (AUTO) 2.4 X 10^3 (1.8-7.8); NEUTROPHILS % (AUTO) 55 % (42-75); RED BLOOD COUNT 3.91 10^6/uL (4.35-5.85); WHITE BLOOD COUNT 4.3 10^3/uL (4.3-11.0)
[2018-06-05 07:53] LABS: PLATELET COUNT 36 10^3/uL (130-400)
[2018-06-05 08:00] VITALS: BP 107/71
[2018-06-05 08:17] LABS: ALANINE AMINOTRANSFERASE 12 U/L (0-55); ALBUMIN 2.6 GM/DL (3.2-4.5); ALKALINE PHOSPHATASE 72 U/L (40-136); BILIRUBIN,TOTAL 1.8 MG/DL (0.1-1.0); BUN/CREATININE RATIO 15; CALCIUM 10.6 MG/DL (8.5-10.1); CARBON DIOXIDE 24 MMOL/L (21-32); CHLORIDE 108 MMOL/L (98-107); CREATININE SERUM 0.59 MG/DL (0.60-1.30); GFR ESTIMATED > 60; GLUCOSE 95 MG/DL (70-105); POTASSIUM 3.9 MMOL/L (3.6-5.0); SODIUM 138 MMOL/L (135-145); TOTAL PROTEIN 5.7 GM/DL (6.4-8.2)
[2018-06-05 08:28] LABS: BAND NEUTROPHILS 1 %; BASOPHILS % (MANUAL) 0 %; EOSINOPHILS % (MANUAL) 3 %; LYMPHOCYTES % (MANUAL) 17 %; MONOCYTES % (MANUAL) 15 %; NEUTROPHILS % (MANUAL) 64 %; RBC MORPH NORMAL
[2018-06-05] MEDS: FUROSEMIDE 20 MG (LASIX) TAB PO SCH (09:46)
[2018-06-05] MEDS: SPIRONOLACTONE 25 MG (ALDACTONE) TAB PO SCH (09:46)
[2018-06-05] MEDS: SENNA W/DOCUSATE (SENOKOT S) TABLET PO SCH (09:46)
[2018-06-05] MEDS: LACTULOSE SYRUP 10GM/15ML (ENULOSE) 30ML UDC PO SCH (09:46)
--- NOTE | 2018-06-05 09:56 | Progress Note-Cardiology ---
Cardiology SOAP Progress Note Subjective: No cp or palp or syncope. Shortness of breath modestly improved Objective: I&O/Vital Signs 06/05/18 06/05/18 06/05/18 06/05/18 00:08 01:00 04:35 07:00 Temp 99.0 98.9 Pulse 90 94 94 76 Resp 16 16 B/P (MAP) 101/71 (81) 111/74 (86) Pulse Ox 93 94 O2 Delivery Nasal Cannula Nasal Cannula O2 Flow Rate 2.50 2.50 06/05/18 08:44 O2 Delivery Nasal Cannula O2 Flow Rate 2.00 06/05/18 00:00 Intake Total 1770 ml Output Total 1000 ml Balance 770 ml Weight (Pounds): 101 Weight (Ounces): 9.6 Weight (Calculated Kilograms): 46.691910 Constitutional: AAO x 3, well-developed, well-nourished Respiratory: No accessory muscle use, No respiratory distress; lungs clear to auscultation (poor inspiratory effort ), other (dimninished lower lobes bilat) Cardiovascular: regular rate-rhythm; No JVD; S1 and S2, systolic murmur Gastrointestional: No tender; soft, round Extremities: no lower extremity edema bilateral Neurologic/Psychiatric: grossly intact Skin: normal color, warm/dry; No rash, No ulcerations Results/Procedures: Labs Laboratory Tests 06/05/18 06:10: Sodium Level 138, Potassium Level 3.9, Chloride Level 108H, Carbon Dioxide Level 24, Anion Gap 6, Blood Urea Nitrogen 9, Creatinine 0.58L, Estimat Glomerular Filtration Rate > 60, BUN/Creatinine Ratio 16, Glucose Level 93, Calcium Level 10.5H, Magnesium Level 1.4L 06/05/18 07:40: Sodium Level 138, Potassium Level 3.9, Chloride Level 108H, Carbon Dioxide Level 24, Anion Gap 6, Blood Urea Nitrogen 9, Creatinine 0.59L, Estimat Glomerular Filtration Rate > 60, BUN/Creatinine Ratio 15, Glucose Level 95, Calcium Level 10.6H, White Blood Count 4.3, Red Blood Count 3.91L, Hemoglobin 13.2, Hematocrit 38, Mean Corpuscular Volume 98, Mean Corpuscular Hemoglobin 34 , Mean Corpuscular Hemoglobin Concent 35, Red Cell Distribution Width 14.0, Platelet Count 36*L, Mean Platelet Volume 12.6H, Neutrophils (%) (Auto) 55, Lymphocytes (%) (Auto) 22, Monocytes (%) (Auto) 20H, Eosinophils (%) (Auto) 2, Basophils (%) (Auto) 1, Neutrophils # (Auto) 2.4, Lymphocytes # (Auto) 1.0, Monocytes # (Auto) 0.9, Eosinophils # (Auto) 0.1, Basophils # (Auto) 0.0, Neutrophils % (Manual) 64, Lymphocytes % (Manual) 17, Monocytes % (Manual) 15, Eosinophils % (Manual) 3, Basophils % (Manual) 0, Band Neutrophils 1, Blood Morphology Comment NORMAL, Corrected Calcium 11.7H, Total Bilirubin 1.8H, Aspartate Amino Transf (AST/SGOT) 39H, Alanine Aminotransferase (ALT/SGPT) 12, Alkaline Phosphatase 72, Total Protein 5.7L, Albumin 2.6L Microbiology 06/01/18 Blood Culture - Preliminary, Resulted No growth 06/01/18 Influenza Types A,B Antigen (RAY) - Final, Complete 06/01/18 Urine Culture - Final, Complete See Comments Laboratory Tests 06/04/18 04:30 06/05/18 06:10 06/05/18 07:40 A/P: Assessment: Dyspnea and cor pulmonale of undetermined etiology (see echo report below). Chronic pulm embolism is a possibility. Ac pulm embolism excluded on pulm CT angio of 06/04/18 UTI with suspected sepsis - management per medical services Palpitations of undetermined etiology with associated dizziness - denies syncope Echocardiogram of Jun 02, 2018 showed LVEF 65-70% with no regional wall motion abnormalities; RV cavity size increased, appears to be vol overload, normal wall thickness; RA mod dilated; Mild to mod TR; Mod Pulmonic valve regurg; PASP approx 70 mmHg Pulmonary hypertension - PASP approx 70mmHg on echo of 06-02-18 Liver cancer (reports dx approx a year and a half ago at [facility]) - awaiting treatment Hep C - completed tx Thrombocytopenia likely r/t liver cancer Hypercalcemia - management per Medical Svce Hypokalemia - replace Scoliosis H/O heavy ETOH abuse - reports 4 years sobriety Denies tobacco or IV drug use Plan: * Complex management * Given h/o CA and evidence of cor pulmonale on echo * She is not suitable for heparin or enoxaparin, given marked thrombocytopenia * We recommend Pulm consult to eval and treatment of cor pulmonale (apparently chronic) * I discussed with her the results of pulm CT angio of 06/04/18 * Monitor lab EMERITA ZAMORA MD FACP FAC CCDS Jun 05, 2018 09:56
--- NOTE | 2018-06-05 10:32 | Pulmonary Progress Note ---
Sepsis Event Evaluation Height, Weight, BMI Height: 5'6.00" Weight: 101lbs. 9.6oz. 46.185551lj; 16.4 BMI Method:Stated Exam Exam Vital Signs Date Time Temp Pulse Resp B/P (MAP) Pulse Ox O2 Delivery O2 Flow Rate FiO2 06/05/18 08:44 Nasal Cannula 2.00 06/05/18 08:00 98.2 84 16 107/71 (83) 93 Nasal Cannula 2.50 06/05/18 07:00 76 06/05/18 04:35 98.9 94 16 111/74 (86) 94 Nasal Cannula 2.50 06/05/18 01:00 94 06/05/18 00:08 99.0 90 16 101/71 (81) 93 Nasal Cannula 2.50 06/04/18 20:00 92 Nasal Cannula 2.00 06/04/18 19:55 98.8 94 20 102/74 (83) 92 Nasal Cannula 2.50 06/04/18 19:00 105 06/04/18 16:40 99.4 92 20 103/67 (79) 97 Nasal Cannula 2.50 06/04/18 14:33 Nasal Cannula 2.50 06/04/18 13:00 86 06/04/18 12:00 99.3 85 20 93/63 (73) 95 Nasal Cannula 2.50 I & O 06/05/18 07:00 Intake Total 1870 ml Output Total 1400 ml Balance 470 ml Height & Weight Height: 5'6.00" Weight: 101lbs. 9.6oz. 46.746155om; 16.4 BMI Method:Stated General Appearance: No Apparent Distress, WD/WN, Chronically ill, Cachetic HEENT: PERRL/EOMI, Normal ENT Inspection, Other (oropharynx somewhat dry) Neck: Normal Inspection Respiratory: Chest Non Tender, No Accessory Muscle Use, No Respiratory Distress , Decreased Breath Sounds Cardiovascular: Regular Rate, Rhythm, No Edema, No Gallop, No JVD, No Murmur, Normal Peripheral Pulses Capillary Refill: Less Than 3 Seconds Gastrointestinal: non tender, soft Extremity: Normal Inspection, No Pedal Edema Neurologic/Psychiatric: Alert, Oriented x3, No Motor/Sensory Deficits, Normal Mood/Affect Skin: Normal Color, Warm/Dry Results Lab Laboratory Tests 06/04/18 04:30 06/05/18 06:10 06/05/18 07:40 Assessment/Plan Assessment/Plan Pulmonary edema with hypoxia -Continue Lasix Pneumonia/atelectasis RLL vs lung mass -CT of chest reviewed -Continue Rocephin -PT will need repeat CT scan of chest 8wks after discharge 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 HARRY NUNEZ DO Jun 05, 2018 10:31
--- NOTE | 2018-06-05 10:46 | Diagnostic Imaging Report ---
INDICATION: Shortness of air. COMPARISON: 06/02/2018. FINDINGS: A single frontal radiographic view of the chest was obtained and demonstrates persistent moderate cardiomegaly and mild pulmonary vascular congestion. There is blunting of the medial costophrenic angle of the right lower lung. This is felt to correspond to the consolidated right lower lobe infiltrate seen on the CT chest from one day prior. The left lung remains clear. No large effusion or pneumothorax is seen on either side. The bony structures show no acute abnormalities. IMPRESSION: 1. Subtle infiltrate within the medial right lower lobe. Continued followup is recommended. 2. Persistent cardiomegaly and mild pulmonary vascular congestion. Dictated by: Dictated on workstation # [id number]
--- NOTE | 2018-06-05 10:58 | Progress Note-Hospitalist ---
Subjective HPI/CC On Admission Date Seen by Provider: Jun 05, 2018 Time Seen by Provider: 10:30 Subjective/Events-last exam Patient doing much better No fever CT chest confirmed right lower lobe pneumonia but may be a mass also needs CT repeat 8 weeks skilled nursing placement via [facility] is being pursued Social work help is appreciated Stopping bowel medications due to loose stools but resolved constipation 1 week Pain is controlled Liver cancer metastases to liver adjacent to primary was noted No bleeding issues Filled out oxygen order at discharge of 2 L continuously She has required oxygen after pneumonia in the past Review of Systems Pulmonary: Cough Objective Exam Vital Signs Vital Signs Date Time Temp Pulse Resp B/P (MAP) Pulse Ox O2 Delivery O2 Flow Rate FiO2 06/05/18 10:29 93 2.00 06/05/18 08:44 Nasal Cannula 06/05/18 08:00 98.2 84 16 107/71 (83) Capillary Refill : Less Than 3 Seconds General Appearance: No Apparent Distress, WD/WN Respiratory: Chest Non Tender, No Accessory Muscle Use, No Respiratory Distress , Crackles (RLL), Decreased Breath Sounds Cardiovascular: Regular Rate, Rhythm, No Edema, No Gallop, No JVD, No Murmur, Normal Peripheral Pulses Neurologic/Psychiatric: Alert, Oriented x3, No Motor/Sensory Deficits, Normal Mood/Affect Skin: Normal Color, Warm/Dry Results/Procedures Lab Laboratory Tests 06/05/18 06:10 06/05/18 07:40 Patient resulted labs reviewed. Assessment/Plan Assessment and Plan Assess & Plan/Chief Complaint Assessment: Hypoxia with negative CXR except pulmonary congestion but CT chest revealing RLL infiltrate vs mass but appears to be improved on empiric abx ready for DC on PO abx Severe valvular heart disease on ECHO Pulmonary HTN Abnormal UA w/3 mixed bacteria not c/w true infection Fever due to pneumonia Previous alcoholic quit 4 yrs ago Thrombocytopenia Liver cancer w/new mets in the liver on CT Cirrhosis Plan: Rocephin to continue until DC tomorrow Consult Dr Bentley for valvular disease is appreciated Consult Dr Martinez for low platelets and cancer management is appreciated consult for placement since she appears to need NH Appreciate Dr Clark's and Dr Martinez's recs Diagnosis/Problems Diagnosis/Problems (1) Fever Status: Resolved Qualifiers: Fever type: due to other condition Qualified Codes: R50.81 - Fever presenting with conditions classified elsewhere (2) Pneumonia Status: Acute Qualifiers: Pneumonia type: due to unspecified organism Laterality: right Lung location: lower lobe of lung Qualified Codes: J18.1 - Lobar pneumonia, unspecified organism (3) Hypoxia Status: Acute (4) Liver cancer Status: Chronic Qualifiers: Liver malignancy type: hepatocellular carcinoma Qualified Codes: C22.0 - Liver cell carcinoma (5) Advanced cirrhosis of liver Status: Chronic (6) 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 (7) Abnormal urinalysis Status: Acute (8) Pulmonary arterial hypertension Status: Acute (9) Weakness Status: Acute (10) Debility Status: Acute (11) Poor prognosis Status: Acute (12) Sepsis Status: Resolved Qualifiers: Sepsis type: sepsis due to unspecified organism Qualified Codes: A41.9 - Sepsis, unspecified organism (13) Nausea vomiting and diarrhea Status: Acute (14) Thrombocytopenia Status: Chronic (15) Coagulopathy Status: Chronic (16) Scoliosis Status: Chronic Qualifiers: Scoliosis type: unspecified scoliosis Spinal region: thoracic Qualified Codes: M41.9 - Scoliosis, unspecified (17) Hypercalcemia Status: Chronic Clinical Quality Measures DVT/VTE Risk/Contraindication: Risk Factor Score Per Nursin RFS Level Per Nursing on Admit: 4+=Very High Contraindications-Pharm: Other *list below* Other: thrombocytopenia JOEY OLMEDO DO Jun 05, 2018 10:58
[2018-06-05 12:00] VITALS: BP 93/64
[2018-06-05 16:34] VITALS: BP 109/73
[2018-06-05] MEDS: cefTRIAXone 1 GM/NS 50 ML IVPB IV SCH ×2 (16:54)
[2018-06-05] MEDS: ACETAMINOPHEN 500 MG TAB (TYLENOL) PO PRN (18:47)
[2018-06-05 19:30] VITALS: BP 96/64
[2018-06-06 00:51] VITALS: BP 104/61
[2018-06-06 04:08] VITALS: BP 105/67
[2018-06-06] MEDS: ACETAMINOPHEN 500 MG TAB (TYLENOL) PO PRN (06:01)
[2018-06-06 06:40] LABS: BASOPHILS % (AUTO) 1 % (0-10); EOSINOPHILS # (AUTO) 0.1 10^3/uL (0.0-0.3); EOSINOPHILS % (AUTO) 3 % (0-10); HEMATOCRIT 37 % (35-52); HEMOGLOBIN 12.5 G/DL (11.5-16.0); LYMPHOCYTES # (AUTO) 0.8 X 10^3 (1.0-4.0); LYMPHOCYTES % (AUTO) 22 % (12-44); MEAN CORPUSCULAR HEMOGLOBIN 34 PG (25-34); MEAN CORPUSCULAR HGB CONC 34 G/DL (32-36); MEAN CORPUSCULAR VOLUME 100 FL (80-99); MEAN PLATELET VOLUME 12.9 FL (7.4-10.4); MONOCYTES # (AUTO) 0.8 X 10^3 (0.0-1.0); MONOCYTES % (AUTO) 20 % (0-12); NEUTROPHILS # (AUTO) 2.1 X 10^3 (1.8-7.8); NEUTROPHILS % (AUTO) 55 % (42-75); RED BLOOD COUNT 3.71 10^6/uL (4.35-5.85); WHITE BLOOD COUNT 3.9 10^3/uL (4.3-11.0)
[2018-06-06 06:45] LABS: PLATELET COUNT 32 10^3/uL (130-400)
--- NOTE | 2018-06-06 07:28 | Pulmonary Progress Note ---
Sepsis Event Evaluation Height, Weight, BMI Height: 5'6.00" Weight: 101lbs. 9.6oz. 46.883650rk; 16.4 BMI Method:Stated Exam Exam Vital Signs Date Time Temp Pulse Resp B/P (MAP) Pulse Ox O2 Delivery O2 Flow Rate FiO2 06/06/18 07:18 Nasal Cannula 1.00 06/06/18 04:08 97.8 76 16 105/67 (80) 93 Nasal Cannula 1.00 06/06/18 00:51 97.5 79 18 104/61 (75) 93 Nasal Cannula 1.00 06/05/18 23:50 Nasal Cannula 1.00 06/05/18 20:00 92 Nasal Cannula 1.00 06/05/18 19:30 99.1 91 20 96/64 (75) 92 Nasal Cannula 1.00 06/05/18 16:34 99.6 93 22 109/73 (85) 93 Nasal Cannula 2.00 06/05/18 12:00 99.0 96 18 93/64 (74) 93 Nasal Cannula 2.00 06/05/18 10:29 93 2.00 06/05/18 08:44 Nasal Cannula 2.00 06/05/18 08:00 Nasal Cannula 2.00 06/05/18 08:00 98.2 84 16 107/71 (83) 93 Nasal Cannula 2.50 I & O 06/06/18 07:00 Intake Total 1550 ml Output Total 250 ml Balance 1300 ml Height & Weight Height: 5'6.00" Weight: 101lbs. 9.6oz. 46.664291io; 16.4 BMI Method:Stated General Appearance: No Apparent Distress, WD/WN HEENT: PERRL/EOMI, Normal ENT Inspection, Other (oropharynx somewhat dry) Neck: Normal Inspection Respiratory: Chest Non Tender, No Accessory Muscle Use, No Respiratory Distress , Crackles (RLL), Decreased Breath Sounds Cardiovascular: Regular Rate, Rhythm, No Edema, No Gallop, No JVD, No Murmur, Normal Peripheral Pulses Capillary Refill: Less Than 3 Seconds Gastrointestinal: non tender, soft Extremity: Normal Inspection, No Pedal Edema Neurologic/Psychiatric: Alert, Oriented x3, No Motor/Sensory Deficits, Normal Mood/Affect Skin: Normal Color, Warm/Dry Results Lab Laboratory Tests 06/05/18 06:10 06/05/18 07:40 11/8/18 05:45 Assessment/Plan Assessment/Plan Pulmonary edema with hypoxia - Lasix -Labs pending Pneumonia/atelectasis RLL vs lung mass -CT of chest reviewed -Continue Rocephin -PT will need repeat CT scan of chest 8wks after discharge Severe valvular heart disease with pulmonary HTN - Liver cancer Cirrhosis with thrombocytopenia -Dr. Martinez is following Debility/weakness -pt may need ECF placement. HARRY NUNEZ DO Jun 06, 2018 07:28
[2018-06-06 07:32] LABS: ALANINE AMINOTRANSFERASE 12 U/L (0-55); ALBUMIN 2.5 GM/DL (3.2-4.5); ALKALINE PHOSPHATASE 78 U/L (40-136); BILIRUBIN,TOTAL 1.3 MG/DL (0.1-1.0); BUN/CREATININE RATIO 17; CALCIUM 11.2 MG/DL (8.5-10.1); CARBON DIOXIDE 27 MMOL/L (21-32); CHLORIDE 105 MMOL/L (98-107); CREATININE SERUM 0.65 MG/DL (0.60-1.30); GFR ESTIMATED > 60; GLUCOSE 117 MG/DL (70-105); POTASSIUM 3.8 MMOL/L (3.6-5.0); SODIUM 140 MMOL/L (135-145); TOTAL PROTEIN 5.6 GM/DL (6.4-8.2)
[2018-06-06 08:00] VITALS: BP 108/72
[2018-06-06] MEDS: FUROSEMIDE 20 MG (LASIX) TAB PO SCH (08:28)
[2018-06-06] MEDS: SPIRONOLACTONE 25 MG (ALDACTONE) TAB PO SCH (08:28)
--- NOTE | 2018-06-06 09:13 | Progress Note-Cardiology ---
Cardiology SOAP Progress Note Subjective: Notes improvement of shortness of breath since admission Denies cp or palp or syncope Objective: I&O/Vital Signs 06/05/18 06/06/18 06/06/18 06/06/18 23:50 00:51 04:08 07:18 Temp 97.5 97.8 Pulse 79 76 Resp 18 16 B/P (MAP) 104/61 (75) 105/67 (80) Pulse Ox 93 93 O2 Delivery Nasal Cannula Nasal Cannula Nasal Cannula Nasal Cannula O2 Flow Rate 1.00 1.00 1.00 1.00 06/06/18 06/06/18 08:00 08:22 Temp 98.6 Pulse 78 Resp 18 B/P (MAP) 108/72 (84) Pulse Ox 93 O2 Delivery Nasal Cannula Nasal Cannula O2 Flow Rate 1.00 2.00 06/06/18 00:00 Intake Total 1400 ml Balance 1400 ml Weight (Pounds): 101 Weight (Ounces): 9.6 Weight (Calculated Kilograms): 46.244392 Constitutional: AAO x 3, well-developed, well-nourished Respiratory: No accessory muscle use, No respiratory distress; lungs clear to auscultation (poor inspiratory effort ), other (dimninished lower lobes bilat) Cardiovascular: regular rate-rhythm; No JVD; S1 and S2, systolic murmur Gastrointestional: No tender; soft, round Extremities: no lower extremity edema bilateral Neurologic/Psychiatric: grossly intact Skin: normal color, warm/dry; No rash, No ulcerations Results/Procedures: Labs Laboratory Tests 06/06/18 05:45: White Blood Count 3.9L, Red Blood Count 3.71L, Hemoglobin 12.5, Hematocrit 37, Mean Corpuscular Volume 100H, Mean Corpuscular Hemoglobin 34, Mean Corpuscular Hemoglobin Concent 34, Red Cell Distribution Width 14.0, Platelet Count 32*L, Mean Platelet Volume 12.9H, Neutrophils (%) (Auto) 55, Lymphocytes (%) (Auto) 22 , Monocytes (%) (Auto) 20H, Eosinophils (%) (Auto) 3, Basophils (%) (Auto) 1, Neutrophils # (Auto) 2.1, Lymphocytes # (Auto) 0.8L, Monocytes # (Auto) 0.8, Eosinophils # (Auto) 0.1, Basophils # (Auto) 0.0, Sodium Level 140, Potassium Level 3.8, Chloride Level 105, Carbon Dioxide Level 27, Anion Gap 8, Blood Urea Nitrogen 11, Creatinine 0.65, Estimat Glomerular Filtration Rate > 60, BUN/ Creatinine Ratio 17, Glucose Level 117H, Calcium Level 11.2H, Corrected Calcium 12.4H, Total Bilirubin 1.3H, Aspartate Amino Transf (AST/SGOT) 33, Alanine Aminotransferase (ALT/SGPT) 12, Alkaline Phosphatase 78, Total Protein 5.6L, Albumin 2.5L Microbiology 06/01/18 Blood Culture - Preliminary, Resulted No growth 06/01/18 Influenza Types A,B Antigen (RAY) - Final, Complete 06/01/18 Urine Culture - Final, Complete See Comments Laboratory Tests 06/05/18 06:10 06/05/18 07:40 06/06/18 05:45 A/P: Assessment: Dyspnea and cor pulmonale of undetermined etiology (see echo report below). Chronic pulm embolism is a possibility. Ac pulm embolism excluded on pulm CT angio of 06/04/18 UTI with suspected sepsis - management per Medical Services Echocardiogram of Jun 02, 2018 showed LVEF 65-70% with no regional wall motion abnormalities; RV cavity size increased, appears to be vol overload, normal wall thickness; RA mod dilated; Mild to mod TR; Mod Pulmonic valve regurg; PASP approx 70 mmHg Pulmonary hypertension - PASP approx 70mmHg on echo of 06-02-18 Liver cancer (reports dx approx a year and a half ago at [facility]) - awaiting treatment Hep C - completed tx Thrombocytopenia likely r/t liver cancer Hypercalcemia - management per Medical Svce Scoliosis H/o heavy ETOH abuse - reports 4 years sobriety Denies tobacco or IV drug use Plan: * Complex management due to multiple comorbidities outline above * She is not suitable for heparin or enoxaparin, given marked thrombocytopenia * We recommend Pulm consult to eval and treatment of cor pulmonale (apparently chronic) EMERITA ZAMORA MD FACP [facility] CCDS Jun 06, 2018 09:13
[2018-06-06] MEDS ORDERED: CEFD300C3 PO (09:46)
--- NOTE | 2018-06-06 09:47 | Discharge Summary-Hospitalist ---
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 (7) Abnormal urinalysis Status: Acute (8) Pulmonary arterial hypertension Status: Acute (9) Weakness Status: Acute (10) Debility Status: Acute (11) Poor prognosis Status: Acute (12) Sepsis Status: Resolved (13) Nausea vomiting and diarrhea Status: Acute (14) Thrombocytopenia Status: Chronic (15) Coagulopathy Status: Chronic (16) Scoliosis Status: Chronic (17) Hypercalcemia Status: Chronic (18) Oxygen dependent Status: Acute Discharge Summary Discharge Physical Exam Allergies: Coded Allergies: No Known Drug Allergies (Unverified , 11/14/16) Vitals & I&Os Vital Signs Date Time Temp Pulse Resp B/P (MAP) Pulse Ox O2 Delivery O2 Flow Rate FiO2 06/06/18 08:22 Nasal Cannula 2.00 06/06/18 08:00 98.6 78 18 108/72 (84) 93 General Appearance: No Apparent Distress, WD/WN, Chronically ill, Thin Respiratory: Chest Non Tender, No Accessory Muscle Use, No Respiratory Distress , Crackles, Wheezing Cardiovascular: Regular Rate, Rhythm, No Edema, No Gallop, No JVD, Normal Peripheral Pulses, Systolic Murmur Neurologic/Psychiatric: Alert, Oriented x3, No Motor/Sensory Deficits, Normal Mood/Affect Hospital Course Hospital course: patient was admitted due to hypoxia but CXR was negative but UA was abnormal so placed on empiric abx of Rocephin. Liver cancer caused low platelets but had no active bleeding but Dr Martinez was consulted. CT angiogram was obtained due to PHTN on ECHO revealed by Dr Bentley but no PE noted only pneumonia but extension of liver cancer to a new mass. IV abx maintained along with Nebs and O2 and patient was so debilitated she required NHP. Labs (last 24 hrs) Laboratory Tests 06/06/18 05:45: White Blood Count 3.9L, Red Blood Count 3.71L, Hemoglobin 12.5, Hematocrit 37, Mean Corpuscular Volume 100H, Mean Corpuscular Hemoglobin 34, Mean Corpuscular Hemoglobin Concent 34, Red Cell Distribution Width 14.0, Platelet Count 32*L, Mean Platelet Volume 12.9H, Neutrophils (%) (Auto) 55, Lymphocytes (%) (Auto) 22 , Monocytes (%) (Auto) 20H, Eosinophils (%) (Auto) 3, Basophils (%) (Auto) 1, Neutrophils # (Auto) 2.1, Lymphocytes # (Auto) 0.8L, Monocytes # (Auto) 0.8, Eosinophils # (Auto) 0.1, Basophils # (Auto) 0.0, Sodium Level 140, Potassium Level 3.8, Chloride Level 105, Carbon Dioxide Level 27, Anion Gap 8, Blood Urea Nitrogen 11, Creatinine 0.65, Estimat Glomerular Filtration Rate > 60, BUN/ Creatinine Ratio 17, Glucose Level 117H, Calcium Level 11.2H, Corrected Calcium 12.4H, Total Bilirubin 1.3H, Aspartate Amino Transf (AST/SGOT) 33, Alanine Aminotransferase (ALT/SGPT) 12, Alkaline Phosphatase 78, Total Protein 5.6L, Albumin 2.5L Microbiology 06/01/18 Blood Culture - Preliminary, Resulted No growth 06/01/18 Influenza Types A,B Antigen (RAY) - Final, Complete 06/01/18 Urine Culture - Final, Complete See Comments Patient resulted labs reviewed. Pending Labs Laboratory Tests 06/06/18 05:45: White Blood Count 3.9, Red Blood Count 3.71, Hemoglobin 12.5, Hematocrit 37, Mean Corpuscular Volume 100, Mean Corpuscular Hemoglobin 34, Mean Corpuscular Hemoglobin Concent 34, Red Cell Distribution Width 14.0, Platelet Count 32, Mean Platelet Volume 12.9, Neutrophils (%) (Auto) 55, Lymphocytes (%) (Auto) 22 , Monocytes (%) (Auto) 20, Eosinophils (%) (Auto) 3, Basophils (%) (Auto) 1, Neutrophils # (Auto) 2.1, Lymphocytes # (Auto) 0.8, Monocytes # (Auto) 0.8, Eosinophils # (Auto) 0.1, Basophils # (Auto) 0.0, Sodium Level 140, Potassium Level 3.8, Chloride Level 105, Carbon Dioxide Level 27, Anion Gap 8, Blood Urea Nitrogen 11, Creatinine 0.65, Estimat Glomerular Filtration Rate > 60, BUN/ Creatinine Ratio 17, Glucose Level 117, Calcium Level 11.2, Corrected Calcium 12.4, Total Bilirubin 1.3, Aspartate Amino Transf (AST/SGOT) 33, Alanine Aminotransferase (ALT/SGPT) 12, Alkaline Phosphatase 78, Total Protein 5.6, Albumin 2.5 Discussion & Recommendations Discharge Planning: <30 minutes discharge planning Discharge Home Medications: Active Scripts Active Cefdinir 300 Mg Capsule 300 Mg PO BID Reported Spironolactone 100 Mg Tablet 100 Mg PO DAILY Lasix (Furosemide) 20 Mg Tablet 20 Mg PO DAILY Instructions to patient/family Please see electronic discharge instructions given to patient. Clinical Quality Measures DVT/VTE Risk/Contraindication: Risk Factor Score Per Nursin RFS Level Per Nursing on Admit: 4+=Very High Contraindications-Pharm: Other *list below* Other: thrombocytopenia PHAM THOMAS MED STUDENT 06/06/18 1023: Discharge Summary Discharge Physical Exam Allergies: Coded Allergies: No Known Drug Allergies (Unverified , 11/14/16) General Appearance: No Apparent Distress, WD/WN Respiratory: Chest Non Tender, No Accessory Muscle Use, No Respiratory Distress , Crackles Cardiovascular: Regular Rate, Rhythm, No Edema, No Gallop, No JVD Skin: Normal Color, Warm/Dry Neurologic/Psychiatric: Alert, Oriented x3, No Motor/Sensory Deficits, Normal Mood/Affect Hospital Course The patient is a 62 y/o female who originally presented to the [facility] for shortness of breath and was found to have an O2 saturation of 89%. She was referred to the [facility] ER and was brought there by her son. She complained of having symptoms of nausea, vomiting, diarrhea, fatigue, generalized soreness, fever, and shortness of breath for approximately 4 days. At the time she had a nonproductive cough and a temperature of 102. Patient stated that she has a history of hepatitis C which was successfully treated and a recent diagnosis of liver cancer. Laboratory results were suspicious for a UTI and she was admitted to the 4th floor for possible sepsis and UTI. Initial x-ray did not reveal a pneumonia but subsequent CT scan showed a right lower lobe consolidation suspicious for pneumonia. She has been treated with empiric antibiotic therapy for the pneumonia and has seen gradual improvement over several days. She is to be discharged to [facility] for continued care and rehabilitation. Problem Qualifiers (1) Fever: Fever type: due to other condition Qualified Codes: R50.81 - Fever presenting with conditions classified elsewhere (2) Pneumonia: Pneumonia type: due to unspecified organism Laterality: right Lung location : lower lobe of lung Qualified Codes: J18.1 - Lobar pneumonia, unspecified organism (3) Liver cancer: Liver malignancy type: hepatocellular carcinoma Qualified Codes: C22.0 - Liver cell carcinoma (4) Sepsis: Sepsis type: sepsis due to unspecified organism Qualified Codes: A41.9 - Sepsis, unspecified organism (5) Scoliosis: Scoliosis type: unspecified scoliosis Spinal region: thoracic Qualified Codes: M41.9 - Scoliosis, unspecified JOEY OLMEDO DO Jun 06, 2018 09:47 PHAM THOMAS MED STUDENT Jun 06, 2018 10:23
--- NOTE | 2018-06-06 10:56 | Discharge Inst-Skilled Nursing ---
Discharge Inst-Skilled NF Patient Instructions Patient Problems: RLL Pneumonia Liver cancer with mets Debility New home O2 Goal: Return to independent living after liver cancer treatment is attained Consult/Follow Up/Orders Follow Up Appt.: [facility] rounds Skilled NF Admit to: [facility] Certification (SNF) I certify that SNF services are required to be given on an inpatient basis because of the above named patient's need for usp care on a continuing basis for the conditions(s) for which he/she was receiving inpatient hospital services prior to his/her transfer to the SNF. Senior Living Facility Order: Nursing Services, Lock Technician-Evaluate & Treat, Physical Therapy-Evaluate & Treat Discharge Diet: No Restrictions Daily Activity as Tolerated: Yes New & Resume Previous Orders Tere Means Jun 06, 2018 10:55 TERE MEANS DO Jun 06, 2018 10:56
[2018-06-06 12:00] VITALS: BP 86/57
== END 2018-06-06 15:43 | DRG 871 ==
LOC: ER 15:00 → 4TH 17:30
PROVIDERS: ADMIT Family Medicine; ATTEND Internal Medicine
DX: A41.9 Sepsis, unspecified organism (principal); J18.1 Lobar pneumonia, unspecified organism; N39.0 Urinary tract infection, site not specified; R09.02 Hypoxemia; C22.0 Liver cell carcinoma; K74.60 Unspecified cirrhosis of liver; D69.59 Other secondary thrombocytopenia; K76.6 Portal hypertension; Z23 Encounter for immunization; I10 Essential (primary) hypertension; R19.7 Diarrhea, unspecified; M41.9 Scoliosis, unspecified; Z86.19 Personal history of other infectious and parasitic diseases; K59.00 Constipation, unspecified; K76.81 Hepatopulmonary syndrome; I27.20 Pulmonary hypertension, unspecified; I37.1 Nonrheumatic pulmonary valve insufficiency; I07.1 Rheumatic tricuspid insufficiency; E83.52 Hypercalcemia; E87.6 Hypokalemia; F10.21 Alcohol dependence, in remission
CPT/HCPCS: 36415; 71045; 71046; 71275; 76705; 80048; 80053; 81000; 82105; 82140; 83605; 83735; 84443; 85007; 85025; 85027; 85610; 85730; 86141; 87040; 87088; 87804; 90471; 90686; 93005; 93306; 94761; 96365

== ENCOUNTER → 2018-06-19 | Outpatient (CLI) | payer OTHER ==
[~2018-06-19] MED LIST changes: +CEFD300C3 PO; +FURO-125 PO; +SPIR100T4 PO; +SPIR25TA PO
[2018-06-19] MEDS: GADOBUTROL 7.5 MMOL/7.5 ML (GADAVIST) VIAL IV ONE (11:09)
--- NOTE | 2018-06-19 17:41 | Diagnostic Imaging Report ---
PROCEDURE: MR imaging abdomen with and without contrast. TECHNIQUE: Multiplanar, multisequence MR imaging of the abdomen was performed with and without contrast. INDICATION: History of cirrhosis. New liver mass. COMPARISON: CT chest dated 06/04/2018 and MR abdomen dated 08/30/2016. FINDINGS: Cirrhotic morphology to the liver is again identified. Since the previous exam, there has been significant interval increase in the irregular predominantly T2 bright lesion within the subcapsular margins of segment VIII of the liver near its junction with segment Nieves. Postcontrast images show irregular arterial enhancement. There is rapid washout when compared to background hepatic parenchyma. The lesion measures 2 x 4.1 cm in axial dimension x 3.5 cm in CC dimension. Previously, this measured 2 x 1.[address] dated 10/27/2016. This corresponds to lesion seen on recent CT chest dated 06/04/2018. There appears to be very subtle corresponding area of irregular enhancement within the lateral segment of the left lobe of the liver near the junction of segments II and III that measures 1.4 cm (image 14, series 4). This corresponds to area of hyperenhancement described on previous CT and has not significantly changed since that study. No new hepatic masses are identified. Portal vein shows normal signal without evidence of thrombosis. Note is made of cholelithiasis. There is sequela of portal venous hypertension including splenomegaly and gastroesophageal varices. No focal splenic lesions are identified. Benign-appearing left renal cyst is noted. Otherwise, the kidneys, adrenal glands, and pancreas have a normal MR appearance. Included small bowel loops are nondistended. Large amount of stool is noted scattered throughout the included portions of the colon. There is no ascites. Included portions of the lung bases show no large pleural or pericardial effusion. IMPRESSION: 1. Significant interval increase in size of enhancing lesion within segment VIII of the liver. This should be considered electroplating sales representative of hepatocellular carcinoma until proven otherwise. 2. Stable much less conspicuous subtle lesion within the lateral segment of the left lobe of the liver. 3. Redemonstration of cirrhotic morphology. 4. Redemonstration of sequela of underlying portal venous hypertension. 5. Large amount of colonic air and stool. Please correlate for underlying constipation. Dictated by: Dictated on workstation # [id number]
== END ==
LOC: RAD 10:05
PROVIDERS: ATTEND Internal Medicine Hematology & Oncology
DX: C22.0 Liver cell carcinoma (principal)
CPT/HCPCS: 74183

== ENCOUNTER → 2018-07-24 | Outpatient (CLI) | payer OTHER ==
[~2018-07-24] MED LIST changes: +RT-ALBUTEROL SULF 2.5 MG/3 ML PRE-MIX VIAL INH ONE; +RT-ALBUTEROL SULF 2.5 MG/3 ML PRE-MIX VIAL ONE
--- NOTE | 2018-07-24 14:37 | Diagnostic Imaging Report ---
PROCEDURE: CT chest without contrast. TECHNIQUE: Multiple contiguous axial images were obtained through the chest without the use of intravenous contrast. INDICATION: Dyspnea and lung nodules. COMPARISON: Correlation is made with prior CT chest from 06/04/2018. FINDINGS: No axillary lymphadenopathy is identified. Hilar and mediastinal evaluation is limited without intravenous contrast. There are calcified lymph nodes in mediastinum, likely owing to prior granulomatous exposure. No pericardial or pleural fluid is seen. There is marked right convexity thoracic scoliotic curvature. Parenchymal evaluation shows the central airways to be patent. Previously noted airspace consolidation in the right lower lobe has nearly completely resolved, consistent with resolving pneumonia. No discrete mass is identified. The upper abdomen is unremarkable. IMPRESSION: Resolution of the previously noted right lower lobe pneumonia when compared with examination from 06/04/2018. Dictated by: Dictated on workstation # [id number]
== END ==
LOC: RT 14:09
PROVIDERS: ATTEND Nurse Practitioner Family
DX: R06.00 Dyspnea, unspecified (principal); R09.02 Hypoxemia; R91.8 Other nonspecific abnormal finding of lung field; M41.9 Scoliosis, unspecified
CPT/HCPCS: 71250; 94060; 94726; 94729

== ENCOUNTER → 2018-08-16 | Outpatient (CLI) | payer SELFPAY ==
[~2018-08-16] MED LIST changes: -RT-ALBUTEROL SULF 2.5 MG/3 ML PRE-MIX VIAL INH ONE; -RT-ALBUTEROL SULF 2.5 MG/3 ML PRE-MIX VIAL ONE
--- NOTE | 2018-08-16 12:21 | Diagnostic Imaging Report ---
PROCEDURE: US Thyroid. TECHNIQUE: Multiple real-time grayscale images were obtained of the thyroid in various projections. INDICATION: Elevated parathyroid hormone level and hypercalcemia. FINDINGS: Right lobe of the thyroid measures 3.5 x 1.5 x 1.3 cm and the left lobe measures 3.5 x 0.9 x 1.1 cm. Isthmus is 3 mm in thickness. Bilateral thyroid nodules are present. A solid nodule with calcifications lower pole right lobe is noted measuring 7 mm x 6 mm. 2 nodules on the left noted, largest measuring approximately 10 mm in size. Numerous additional subcentimeter nodules are also present which have the appearance of colloid cysts. IMPRESSION: Bilateral thyroid nodules, all 1 cm or less. No dominant thyroid mass is seen. Followup could be performed in 6 months to confirm stability. Dictated by: Dictated on workstation # [id number]
== END ==
LOC: RAD 10:27
PROVIDERS: ATTEND Internal Medicine Hematology & Oncology
DX: C22.0 Liver cell carcinoma (principal); E04.2 Nontoxic multinodular goiter; E83.52 Hypercalcemia
CPT/HCPCS: 76536

== ENCOUNTER → 2018-08-26 | Outpatient (CLI) | payer SELFPAY ==
[~2018-08-26] MED LIST changes: -AMLO5TAB7 PO; +AMLO5TAB9 PO
--- NOTE | 2018-08-26 19:58 | Diagnostic Imaging Report ---
Nuclear medicine parathyroid SPECT scan INDICATION: Elevated parathyroid hormone This study was performed following administration of 20.3 mCi of 99 m technetium sestamibi. Images were taken at 20 minutes postinjection and 2 hours post injection. SPECT images were also performed in the axial, coronal, and sagittal planes. There are no prior studies available for comparison. On the two-hour delayed image there is no persistent area of increased uptake in the neck to suggest a parathyroid adenoma. The SPECT images also failed to show any sign of a parathyroid adenoma. On the coronal SPECT series there is a focal area of increased uptake in the left axilla. This could be artifactual in nature. The possibility that there is a mass in this area should be considered. The recent CT chest exam of 07/24/2018 failed to show any sign of a discrete mass in this portion of the left thorax. However, there was an area of slightly increased density in the lateral most aspect of the left breast. According to our records the patient has not had a mammogram since 04/11/2016. The possibility that there is a neoplastic mass involving the lateral aspect of the left breast should be considered. I would recommend that mammography be performed for further study. IMPRESSION: 1. There is no abnormal uptake involving the neck to suggest the presence of a parathyroid adenoma. 2. The uptake in the left axilla is of uncertain etiology. Considerations and recommendations as above. Dictated by: Dictated on workstation # [id number]
== END ==
LOC: CARD 12:22
PROVIDERS: ATTEND Internal Medicine Hematology & Oncology
DX: E34.9 Endocrine disorder, unspecified (principal); R93.89 Abnormal findings on diagnostic imaging of other specified body structures
CPT/HCPCS: 78072

== ENCOUNTER → 2018-09-04 | Outpatient (CLI) | payer OTHER ==
--- NOTE | 2018-09-04 21:40 | Diagnostic Imaging Report ---
INDICATION: Abnormal parathyroid scan demonstrating activity in the left axilla as well as recent CT chest study demonstrating some slight density in the left breast. Study is performed for further evaluation. Correlation is made with prior screening mammogram from 04/11/2016 as well as parathyroid scan from 08/26/[address] recent [address] chest from 07/24/2018. 2-D and 3-D bilateral diagnostic mammography was performed with CAD. The current study was also evaluated with a Computer Aided Detection (CAD) system. FINDINGS: Both breasts are heterogeneously dense, limiting the sensitivity of mammography. There has been development of a lobulated density in the inferior left breast approximately 6 cm from the nipple approximately 6 o'clock location. This likely accounts for the density noted on CT. Right breast is unremarkable. No suspicious calcifications are identified. There are benign-appearing parenchymal and vascular calcifications bilaterally. Axillae are unremarkable. Benign nodule in the upper-outer right breast is stable. IMPRESSION: Lobulated density in inferior left breast at mid depth. This may account for the density noted on CT scan. No abnormality in the left axilla is seen. Ultrasound of the left breast density and the left axilla is recommended for further evaluation. ACR BI-RADS Category 0: Incomplete. (Needs additional imaging evaluation). Result letter will be mailed to the patient. Note: At least 10% of breast cancer is not imaged by mammography. Dictated by: Dictated on workstation # [id number]
--- NOTE | 2018-09-04 23:21 | Diagnostic Imaging Report ---
INDICATION: Left breast density. COMPARISON: Correlation is made with diagnostic mammogram from earlier the same day. EXAMINATION: Sonography interrogation of the inferior left breast was performed. FINDINGS: There is a slightly lobulated hypoechoic mass at the 6 clock location of the left breast, 4 cm from the nipple. This measures 10 mm x 5 mm x 9 mm. This does show some internal blood flow. No significant posterior acoustic enhancement or shadowing is seen. No other masses are identified. The left axilla is unremarkable. IMPRESSION: BI-RADS category 4. Lobulated hypoechoic mass at the 6 o'clock location of the left breast, likely accounting for the mammographic and CT density. Tissue sampling is recommended. This would be amenable to ultrasound-guided core biopsy. Dictated by: Dictated on workstation # [id number]
== END ==
LOC: RAD 13:58
PROVIDERS: ATTEND Nurse Practitioner Adult Health
DX: N64.89 Other specified disorders of breast (principal); R93.89 Abnormal findings on diagnostic imaging of other specified body structures; R92.2 Inconclusive mammogram
CPT/HCPCS: 76642; 77066

== ENCOUNTER → 2018-09-09 | Outpatient (CLI) | payer OTHER ==
[~2018-09-09] VITALS: Ht 167.6 cm; Wt 51.7 kg
[~2018-09-09] MED LIST changes: +LIDOCAINE 1% INJ 20 ML 20 ML VIAL INJ ONE
--- NOTE | 2018-09-09 11:28 | Diagnostic Imaging Report ---
INDICATION: Left breast nodule. Patient presents for ultrasound guided biopsy. TECHNIQUE: The patient was brought to the procedure room and placed on the table in the supine position. Ultrasound imaging of the left breast was performed to evaluate for an appropriate entry site. The left breast was then prepped and draped in the usual sterile fashion. A small amount of 1% lidocaine was utilized for local anesthesia. A 14 gauge Achieve needle was advanced and placed with its tip adjacent to the hypoechoic nodule at the 6 o'clock location of the left breast. A total of three core biopsies was obtained. A marker clip was then deployed. Hemostasis was obtained with manual compression. The patient tolerated the procedure well and was sent for a post procedure mammogram in satisfactory condition. IMPRESSION: Ultrasound-guided core biopsy of the slightly lobulated nodule at the 6 o'clock location of the left breast, as described. The Pathology results are currently pending. Dictated by: Dictated on workstation # [id number]
--- NOTE | 2018-09-09 11:42 | Diagnostic Imaging Report ---
INDICATION: Left breast nodule. Patient is status post biopsy. COMPARISON: Correlation is made with the previous mammogram study from 09/04/2018. FINDINGS: Post biopsy changes are noted. A biopsy clip lies adjacent to the nodule at the 6 o'clock location. The clip is just posterior and slightly medial to the nodule. Vascular and parenchymal calcifications are noted. IMPRESSION: The biopsy clip lies adjacent to the nodule, as described. The Pathology results are pending. Dictated by: Dictated on workstation # [id number]
== END ==
LOC: RAD 09:19
PROVIDERS: ATTEND Nurse Practitioner Adult Health
DX: N60.92 Unspecified benign mammary dysplasia of left breast (principal); N63.20 Unspecified lump in the left breast, unspecified quadrant
CPT/HCPCS: 19083; 88305; 90471

== ENCOUNTER 2018-09-11 10:07 | Outpatient (RCR) | payer OTHER ==
[2018-07-04 10:25] LABS: BASOPHILS % (AUTO) 1 % (0-10); EOSINOPHILS # (AUTO) 0.1 10^3/uL (0.0-0.3); EOSINOPHILS % (AUTO) 1 % (0-10); HEMATOCRIT 43 % (35-52); HEMOGLOBIN 15.1 G/DL (11.5-16.0); LYMPHOCYTES # (AUTO) 1.4 X 10^3 (1.0-4.0); LYMPHOCYTES % (AUTO) 33 % (12-44); MEAN CORPUSCULAR HEMOGLOBIN 33 PG (25-34); MEAN CORPUSCULAR HGB CONC 35 G/DL (32-36); MEAN CORPUSCULAR VOLUME 95 FL (80-99); MEAN PLATELET VOLUME 12.7 FL (7.4-10.4); MONOCYTES # (AUTO) 0.5 X 10^3 (0.0-1.0); MONOCYTES % (AUTO) 13 % (0-12); NEUTROPHILS # (AUTO) 2.1 X 10^3 (1.8-7.8); NEUTROPHILS % (AUTO) 53 % (42-75); PLATELET COUNT 50 10^3/uL (130-400); WHITE BLOOD COUNT 4.1 10^3/uL (4.3-11.0)
[2018-07-04 10:42] LABS: ALANINE AMINOTRANSFERASE 29 U/L (0-55); ALBUMIN 3.8 GM/DL (3.2-4.5); ALKALINE PHOSPHATASE 127 U/L (40-136); BILIRUBIN,TOTAL 1.7 MG/DL (0.1-1.0); BUN/CREATININE RATIO 20; CALCIUM 12.4 MG/DL (8.5-10.1); CARBON DIOXIDE 23 MMOL/L (21-32); CHLORIDE 101 MMOL/L (98-107); CREATININE SERUM 0.93 MG/DL (0.60-1.30); GFR ESTIMATED > 60; GLUCOSE 159 MG/DL (70-105); POTASSIUM 4.3 MMOL/L (3.6-5.0); SODIUM 133 MMOL/L (135-145); TOTAL PROTEIN 8.2 GM/DL (6.4-8.2)
[2018-07-25 14:34] LABS: BASOPHILS % (AUTO) 1 % (0-10); EOSINOPHILS # (AUTO) 0.1 10^3/uL (0.0-0.3); EOSINOPHILS % (AUTO) 1 % (0-10); HEMATOCRIT 41 % (35-52); HEMOGLOBIN 14.3 G/DL (11.5-16.0); LYMPHOCYTES # (AUTO) 1.5 X 10^3 (1.0-4.0); LYMPHOCYTES % (AUTO) 34 % (12-44); MEAN CORPUSCULAR HEMOGLOBIN 34 PG (25-34); MEAN CORPUSCULAR HGB CONC 35 G/DL (32-36); MEAN CORPUSCULAR VOLUME 95 FL (80-99); MEAN PLATELET VOLUME 11.7 FL (7.4-10.4); MONOCYTES # (AUTO) 0.8 X 10^3 (0.0-1.0); MONOCYTES % (AUTO) 18 % (0-12); NEUTROPHILS # (AUTO) 2.1 X 10^3 (1.8-7.8); NEUTROPHILS % (AUTO) 46 % (42-75); PLATELET COUNT 68 10^3/uL (130-400); RED CELL DISTRIBUTION WIDTH 13.2 % (10.0-14.5); WHITE BLOOD COUNT 4.4 10^3/uL (4.3-11.0)
[2018-07-25 14:59] LABS: CALCIUM 11.8 MG/DL (8.5-10.1); CREATININE SERUM 0.99 MG/DL (0.60-1.30); POTASSIUM 4.7 MMOL/L (3.6-5.0)
[2018-07-25 15:27] LABS: ALBUMIN 3.5 GM/DL (3.2-4.5); BILIRUBIN,TOTAL 1.2 MG/DL (0.1-1.0); TOTAL PROTEIN 7.7 GM/DL (6.4-8.2)
[2018-08-14 10:19] LABS: ALBUMIN 3.8 GM/DL (3.2-4.5); BILIRUBIN,TOTAL 1.9 MG/DL (0.1-1.0); CALCIUM 12.4 MG/DL (8.5-10.1); CREATININE SERUM 0.99 MG/DL (0.60-1.30); POTASSIUM 4.4 MMOL/L (3.6-5.0); TOTAL PROTEIN 8.1 GM/DL (6.4-8.2)
[~2018-09-11 10:07] MED LIST changes: -LIDOCAINE 1% INJ 20 ML 20 ML VIAL INJ ONE; +NS IV SCH; +PAMIDRONATE IV SCH
[2018-09-11 10:42] LABS: BASOPHILS % (AUTO) 1 % (0-10); EOSINOPHILS # (AUTO) 0.1 10^3/uL (0.0-0.3); EOSINOPHILS % (AUTO) 3 % (0-10); HEMATOCRIT 40 % (35-52); LYMPHOCYTES # (AUTO) 0.5 X 10^3 (1.0-4.0); LYMPHOCYTES % (AUTO) 14 % (12-44); MEAN CORPUSCULAR HEMOGLOBIN 33 PG (25-34); MEAN CORPUSCULAR HGB CONC 35 G/DL (32-36); MEAN CORPUSCULAR VOLUME 95 FL (80-99); MEAN PLATELET VOLUME 11.5 FL (7.4-10.4); MONOCYTES # (AUTO) 0.5 X 10^3 (0.0-1.0); MONOCYTES % (AUTO) 17 % (0-12); NEUTROPHILS # (AUTO) 2.1 X 10^3 (1.8-7.8); NEUTROPHILS % (AUTO) 66 % (42-75); PLATELET COUNT 54 10^3/uL (130-400); RED CELL DISTRIBUTION WIDTH 14.1 % (10.0-14.5); WHITE BLOOD COUNT 3.2 10^3/uL (4.3-11.0)
[2018-09-11 10:56] LABS: INR 1.2 (0.8-1.4); PROTHROMBIN TIME PATIENT 14.8 SEC (12.2-14.7)
[2018-09-11 10:59] LABS: ALANINE AMINOTRANSFERASE 20 U/L (0-55); ALBUMIN 3.5 GM/DL (3.2-4.5); ALKALINE PHOSPHATASE 72 U/L (40-136); BILIRUBIN,TOTAL 1.5 MG/DL (0.1-1.0); BUN/CREATININE RATIO 22; CALCIUM 10.3 MG/DL (8.5-10.1); CARBON DIOXIDE 22 MMOL/L (21-32); CHLORIDE 105 MMOL/L (98-107); CREATININE SERUM 0.89 MG/DL (0.60-1.30); GFR ESTIMATED > 60; GLUCOSE 112 MG/DL (70-105); POTASSIUM 4.3 MMOL/L (3.6-5.0); SODIUM 134 MMOL/L (135-145); TOTAL PROTEIN 7.3 GM/DL (6.4-8.2)
== END 2018-10-02 | disposition home or self-care (01) ==
LOC: ONC 10:07
PROVIDERS: ATTEND Internal Medicine Hematology & Oncology
DX: C22.0 Liver cell carcinoma (principal); D69.59 Other secondary thrombocytopenia; E83.52 Hypercalcemia; F10.20 Alcohol dependence, uncomplicated; B18.2 Chronic viral hepatitis C; R16.0 Hepatomegaly, not elsewhere classified; Z79.899 Other long term (current) drug therapy
CPT/HCPCS: 36415; 80053; 82105; 82652; 82784; 83519; 83883; 83970; 84100; 84155; 84165; 85025; 85610; 96365; 96366; 99213

== ENCOUNTER → 2018-11-21 | Outpatient (CLI) | payer MEDICAID ==
[~2018-11-21] MED LIST changes: +GADOBUTROL 7.5 MMOL/7.5 ML (GADAVIST) VIAL IV ONE; -NS IV SCH; -PAMIDRONATE IV SCH
--- NOTE | 2018-11-21 16:31 | Diagnostic Imaging Report ---
PROCEDURE: MR imaging abdomen with and without contrast. TECHNIQUE: Multiplanar, multisequence MR imaging of the abdomen was performed with and without contrast. DATE: November 21, 2018. INDICATION: 62-year-old female, history of cirrhosis and liver malignancy. COMPARISON: MRI abdomen June 19, 2018. MRI abdomen August 30, 2016. FINDINGS: The liver is nodular in contour compatible with cirrhosis. There is a hypervascular lesion in the liver on axial image 38 which measures approximately 3.5 x 4.5 cm in axial extent. The exact measurements of the lesion are difficult to define as the lesion is ill-defined in extent. The lesion previously measured roughly 4.2 x 2.7 cm in axial extent on June 19, 2018. The mass measures larger in size on the current exam. There are central areas of washout. There is an additional hypervascular lesion in the more lateral aspect of the left lobe of the liver on axial image 40 which measures 13 mm in size. This previously measured approximately 13 mm in size. This is essentially unchanged since June 19, 2018. There is a subtle hypervascular nodule in the dome of the liver measuring 9 mm in size on axial postcontrast image 20 which appears new since comparison exam. There are motion limitations of the exam. There is no identified occlusion of the main, right, or left portal veins. There is cholelithiasis without findings to suggest acute cholecystitis. There is no identified biliary ductal dilation. The main pancreatic duct is normal in caliber. There is no identified pancreatic mass on significantly motion limited postcontrast evaluation of the pancreatic parenchyma. The spleen is not enlarged and measures 8.8 cm in craniocaudal dimension. The adrenal glands are without identified lesion. There is a T2 hyperintense nonenhancing left renal lesion compatible with benign left renal cyst. There is no hydronephrosis. There is scoliosis. There is no visualized enhancing bone lesion. IMPRESSION: 1. Enhancing lesions in the cirrhotic liver most compatible with multifocal hepatocellular carcinoma with the largest measuring mildly increased in size since June 19, 2018. The 13 mm lesion in the more lateral aspect of the left lobe of the liver is unchanged. There is a new hypervascular nodule in the dome of the liver measuring 9 mm in size. 2. Motion limitations of the exam. 3. No identified portal vein thrombus. Dictated by: Dictated on workstation # [id number]
--- NOTE | 2018-11-21 17:02 | Diagnostic Imaging Report ---
PROCEDURE: CT chest without contrast. TECHNIQUE: Multiple contiguous axial images were obtained through the chest without the use of intravenous contrast. Auto Exposure Controls were utilized during the CT exam to meet ALARA standards for radiation dose reduction. INDICATION: Hepatocellular carcinoma. COMPARISON: 07/24/2018 FINDINGS: Evaluation of the lung padilla demonstrates stable 3 mm micronodule within the anterior margins of the left upper lobe (image #13, series 3). No new suspicious pulmonary nodules or masses are identified. There is no focal consolidation, large effusion, nor pneumothorax. Cardiomediastinal structures show massive enlargement of the main pulmonary arterial trunk. It measures 5.3 cm in diameter. Heart size is within normal limits. There is no large pericardial effusion. A few calcified mediastinal and right hilar lymph nodes are noted. No pathologically enlarged or morphologically abnormal mediastinal, hilar, nor axillary adenopathy is seen on this noncontrast exam. There is gross deformity of the chest cavity secondary to significant dextroscoliotic deformity of the thoracic spine. No acute osseous abnormalities are seen. Included portions of the upper abdomen show cirrhotic morphology to the liver, cholelithiasis, splenomegaly, and multiple nodular densities at the GE junction consistent with gastroesophageal varices. IMPRESSION: 1. No new acute cardiopulmonary process. 2. Small stable 3 mm micronodule within the left upper lobe. 3. Stable marked enlargement of the main pulmonary arterial trunk. Findings can be seen with underlying pulmonary arterial hypertension. 4. Advanced dextroscoliotic deformity of the thoracic spine. 5. Cirrhosis with sequela of portal venous hypertension including gastroesophageal varices and splenomegaly. 6. Cholelithiasis. Dictated by: Dictated on workstation # [id number]
== END ==
LOC: RAD 13:52
PROVIDERS: ATTEND Internal Medicine
DX: C22.0 Liver cell carcinoma (principal); K74.60 Unspecified cirrhosis of liver; R91.1 Solitary pulmonary nodule; I28.8 Other diseases of pulmonary vessels; M41.84 Other forms of scoliosis, thoracic region; K80.20 Calculus of gallbladder without cholecystitis without obstruction; I86.4 Gastric varices; K76.6 Portal hypertension; I85.10 Secondary esophageal varices without bleeding
CPT/HCPCS: 36415; 71250; 74183; 82306; 82330; 83519; 83970

== ENCOUNTER → 2019-01-13 | Outpatient (RCR) | payer MEDICAID, OTHER ==
[2018-10-15 13:40] LABS: BASOPHILS % (AUTO) 0 % (0-10); EOSINOPHILS # (AUTO) 0.1 10^3/uL (0.0-0.3); EOSINOPHILS % (AUTO) 2 % (0-10); HEMATOCRIT 41 % (35-52); HEMOGLOBIN 14.3 G/DL (11.5-16.0); LYMPHOCYTES # (AUTO) 1.4 X 10^3 (1.0-4.0); LYMPHOCYTES % (AUTO) 30 % (12-44); MEAN CORPUSCULAR HEMOGLOBIN 33 PG (25-34); MEAN CORPUSCULAR HGB CONC 35 G/DL (32-36); MEAN CORPUSCULAR VOLUME 95 FL (80-99); MEAN PLATELET VOLUME 11.7 FL (7.4-10.4); MONOCYTES # (AUTO) 0.7 X 10^3 (0.0-1.0); MONOCYTES % (AUTO) 15 % (0-12); NEUTROPHILS # (AUTO) 2.4 X 10^3 (1.8-7.8); NEUTROPHILS % (AUTO) 53 % (42-75); PLATELET COUNT 70 10^3/uL (130-400); RED CELL DISTRIBUTION WIDTH 13.2 % (10.0-14.5); WHITE BLOOD COUNT 4.6 10^3/uL (4.3-11.0)
[2018-10-15 14:02] LABS: ALBUMIN 3.8 GM/DL (3.2-4.5); BILIRUBIN,TOTAL 1.4 MG/DL (0.1-1.0); CALCIUM 11.8 MG/DL (8.5-10.1); CREATININE SERUM 1.08 MG/DL (0.60-1.30); POTASSIUM 4.1 MMOL/L (3.6-5.0); TOTAL PROTEIN 7.8 GM/DL (6.4-8.2)
[2018-12-02 14:22] LABS: BASOPHILS % (AUTO) 0 % (0-10); EOSINOPHILS # (AUTO) 0.1 10^3/uL (0.0-0.3); EOSINOPHILS % (AUTO) 2 % (0-10); HEMATOCRIT 41 % (35-52); HEMOGLOBIN 14.3 G/DL (11.5-16.0); LYMPHOCYTES # (AUTO) 1.4 X 10^3 (1.0-4.0); LYMPHOCYTES % (AUTO) 35 % (12-44); MEAN CORPUSCULAR HEMOGLOBIN 33 PG (25-34); MEAN CORPUSCULAR HGB CONC 35 G/DL (32-36); MEAN CORPUSCULAR VOLUME 95 FL (80-99); MEAN PLATELET VOLUME 12.3 FL (7.4-10.4); MONOCYTES # (AUTO) 0.6 X 10^3 (0.0-1.0); MONOCYTES % (AUTO) 15 % (0-12); NEUTROPHILS # (AUTO) 1.9 X 10^3 (1.8-7.8); NEUTROPHILS % (AUTO) 48 % (42-75); PLATELET COUNT 61 10^3/uL (130-400); RED CELL DISTRIBUTION WIDTH 13.1 % (10.0-14.5)
[2018-12-02 14:42] LABS: ALBUMIN 3.8 GM/DL (3.2-4.5); BILIRUBIN,TOTAL 1.5 MG/DL (0.1-1.0); CREATININE SERUM 0.96 MG/DL (0.60-1.30); POTASSIUM 4.3 MMOL/L (3.6-5.0); TOTAL PROTEIN 7.6 GM/DL (6.4-8.2)
[~2019-01-13] MED LIST changes: -GADOBUTROL 7.5 MMOL/7.5 ML (GADAVIST) VIAL IV ONE; +NS IV ONE; +PAMIDRONATE IV ONE
[2019-01-13 14:09] LABS: BASOPHILS % (AUTO) 0 % (0-10); EOSINOPHILS % (AUTO) 0 % (0-10); HEMATOCRIT 44 % (35-52); HEMOGLOBIN 15.5 G/DL (11.5-16.0); LYMPHOCYTES # (AUTO) 1.3 X 10^3 (1.0-4.0); LYMPHOCYTES % (AUTO) 11 % (12-44); MEAN CORPUSCULAR HEMOGLOBIN 34 PG (25-34); MEAN CORPUSCULAR HGB CONC 36 G/DL (32-36); MEAN CORPUSCULAR VOLUME 94 FL (80-99); MEAN PLATELET VOLUME 12.6 FL (7.4-10.4); MONOCYTES # (AUTO) 1.6 X 10^3 (0.0-1.0); MONOCYTES % (AUTO) 13 % (0-12); NEUTROPHILS # (AUTO) 9.1 X 10^3 (1.8-7.8); NEUTROPHILS % (AUTO) 76 % (42-75); RED CELL DISTRIBUTION WIDTH 13.7 % (10.0-14.5); WHITE BLOOD COUNT 11.9 10^3/uL (4.3-11.0)
[2019-01-13 14:10] LABS: PLATELET COUNT 38 10^3/uL (130-400)
[2019-01-13 14:29] LABS: ALBUMIN 3.6 GM/DL (3.2-4.5); BILIRUBIN,TOTAL 4.6 MG/DL (0.1-1.0); CALCIUM 11.2 MG/DL (8.5-10.1); CREATININE SERUM 0.95 MG/DL (0.60-1.30); POTASSIUM 3.8 MMOL/L (3.6-5.0); TOTAL PROTEIN 7.7 GM/DL (6.4-8.2)
== END | disposition home or self-care (01) ==
LOC: ONC 10-15 13:28
PROVIDERS: ATTEND Internal Medicine Hematology & Oncology
DX: C22.0 Liver cell carcinoma (principal); D69.59 Other secondary thrombocytopenia; E83.52 Hypercalcemia; F10.20 Alcohol dependence, uncomplicated; B18.2 Chronic viral hepatitis C; R16.0 Hepatomegaly, not elsewhere classified; Z79.899 Other long term (current) drug therapy
CPT/HCPCS: 36415; 80053; 82105; 85025; 96365; 96366; 99213

== ENCOUNTER → 2019-02-05 | Outpatient (CLI) | payer MEDICAID ==
[~2019-02-05] MED LIST changes: +GADOBUTROL 7.5 MMOL/7.5 ML (GADAVIST) VIAL IV ONE; -NS IV ONE; -PAMIDRONATE IV ONE
--- NOTE | 2019-02-05 12:01 | Diagnostic Imaging Report ---
PROCEDURE: MR imaging abdomen with and without contrast. TECHNIQUE: Multiplanar, multisequence MR imaging of the abdomen was performed with and without contrast. INDICATION: Cancer Findings: Comparison is 11/21/2018. In the interval there appears to have been therapy directed to hepatocellular carcinoma lesions. A lesion in segment 4A demonstrates intrinsic peripheral T1 hyperintensity in keeping with hemorrhage. A hypo-enhancing cavity completely covers the area of the lesion on the prior exam. No residual enhancement seen. The second lesion is in hepatic segment 7. Again, this demonstrates intrinsic T1 hyperintensity in keeping with blood products. There is nodular enhancement along the periphery of this lesion (901, image 30). The most discrete focus of enhancement measures 2.0 x 1.0 cm and is along the posterior aspect. The majority of the tumor is now replaced by a nonenhancing cavity. There is thrombophlebitis of the branch portal veins extending to this cavity (series 18, image 43). This is favored to represent bland thrombus as no enhancement within the portal vein is seen. However, close attention on followup is recommended. No new liver lesions are seen. The liver is cirrhotic. Portal vein is patent. Gallbladder contains stones. No biliary ductal dilation. The pancreas, spleen and adrenal glands are normal. Kidneys are normal with the exception of a few cysts. No hydronephrosis. Urinary bladder is normal. No dilated bowel. No lymphadenopathy is seen in the upper abdomen. There is scoliosis of the thoracolumbar spine. Lungs are clear. Impression: 1. Segment 4A liver lesion has no residual enhancement after presumed liver directed therapy compatible with complete response. 2. Segment 7 liver lesion does demonstrate peripheral nodular enhancement in keeping with residual viable tumor after presumed liver directed therapy. 3. Thrombophlebitis of the segment 7 portal veins, likely is bland as no internal contrast enhancement is seen to indicate tumor thrombus. 4. Cirrhosis. Dictated by: Dictated on workstation # [id number]
== END ==
LOC: RAD 09:50
PROVIDERS: ATTEND Internal Medicine Hematology & Oncology
DX: C22.0 Liver cell carcinoma (principal); K75.1 Phlebitis of portal vein; K74.60 Unspecified cirrhosis of liver
CPT/HCPCS: 74183

== ENCOUNTER → 2019-04-16 | Outpatient (CLI) | payer MEDICAID ==
[~2019-04-16] MED LIST changes: -GADOBUTROL 7.5 MMOL/7.5 ML (GADAVIST) VIAL IV ONE
--- NOTE | 2019-04-16 11:25 | Diagnostic Imaging Report ---
INDICATION: Followup left breast mass. COMPARISON: Correlation is made with the prior left breast ultrasound from 09/04/2018. FINDINGS: The previously noted slightly lobulated hypoechoic mass in the left breast at the 6 o'clock location 4 cm from the nipple is again noted. This is stable at approximately 10 mm x 5 mm x 10 mm. There is some vascularity along the margins. This has been previously biopsied with a benign result. No new mass is seen. IMPRESSION: Stable hypoechoic nodule at the 6 o'clock location of the left breast 4 cm from the nipple when compared with the examination from 09/04/2018. Continued followup in 6 months is recommended to show continued stability. ACR BI-RADS Category 3: Probably benign findings. Dictated by: Dictated on workstation # [id number]
== END ==
LOC: RAD 10:01
PROVIDERS: ATTEND Nurse Practitioner Adult Health
DX: N63.20 Unspecified lump in the left breast, unspecified quadrant (principal); N60.99 Unspecified benign mammary dysplasia of unspecified breast
CPT/HCPCS: 76642

== ENCOUNTER 2019-05-01 13:13 | Outpatient (RCR) | payer MEDICAID ==
[2019-02-14 13:19] LABS: BASOPHILS % (AUTO) 1 % (0-10); EOSINOPHILS # (AUTO) 0.2 10^3/uL (0.0-0.3); EOSINOPHILS % (AUTO) 2 % (0-10); HEMATOCRIT 43 % (35-52); HEMOGLOBIN 14.9 G/DL (11.5-16.0); LYMPHOCYTES # (AUTO) 1.8 X 10^3 (1.0-4.0); LYMPHOCYTES % (AUTO) 25 % (12-44); MEAN CORPUSCULAR HEMOGLOBIN 34 PG (25-34); MEAN CORPUSCULAR HGB CONC 35 G/DL (32-36); MEAN CORPUSCULAR VOLUME 98 FL (80-99); MEAN PLATELET VOLUME 11.8 FL (7.4-10.4); MONOCYTES # (AUTO) 1.4 X 10^3 (0.0-1.0); MONOCYTES % (AUTO) 19 % (0-12); NEUTROPHILS # (AUTO) 3.9 X 10^3 (1.8-7.8); NEUTROPHILS % (AUTO) 54 % (42-75); PLATELET COUNT 98 10^3/uL (130-400); RED CELL DISTRIBUTION WIDTH 14.9 % (10.0-14.5); WHITE BLOOD COUNT 7.2 10^3/uL (4.3-11.0)
[2019-02-14 13:40] LABS: ALANINE AMINOTRANSFERASE 25 U/L (0-55); ALBUMIN 3.5 GM/DL (3.2-4.5); ALKALINE PHOSPHATASE 136 U/L (40-136); BILIRUBIN,TOTAL 1.9 MG/DL (0.1-1.0); BUN/CREATININE RATIO 18; CALCIUM 12.1 MG/DL (8.5-10.1); CARBON DIOXIDE 27 MMOL/L (21-32); CHLORIDE 99 MMOL/L (98-107); GFR ESTIMATED > 60; GLUCOSE 100 MG/DL (70-105); POTASSIUM 4.1 MMOL/L (3.6-5.0); SODIUM 132 MMOL/L (135-145); TOTAL PROTEIN 8.1 GM/DL (6.4-8.2)
[2019-03-27 13:53] LABS: BASOPHILS % (AUTO) 0 % (0-10); EOSINOPHILS # (AUTO) 0.1 10^3/uL (0.0-0.3); EOSINOPHILS % (AUTO) 1 % (0-10); HEMATOCRIT 43 % (35-52); HEMOGLOBIN 14.7 G/DL (11.5-16.0); LYMPHOCYTES # (AUTO) 1.4 X 10^3 (1.0-4.0); LYMPHOCYTES % (AUTO) 29 % (12-44); MEAN CORPUSCULAR HEMOGLOBIN 34 PG (25-34); MEAN CORPUSCULAR HGB CONC 34 G/DL (32-36); MEAN CORPUSCULAR VOLUME 99 FL (80-99); MEAN PLATELET VOLUME 11.9 FL (7.4-10.4); MONOCYTES # (AUTO) 0.8 X 10^3 (0.0-1.0); MONOCYTES % (AUTO) 16 % (0-12); NEUTROPHILS # (AUTO) 2.6 X 10^3 (1.8-7.8); NEUTROPHILS % (AUTO) 54 % (42-75); PLATELET COUNT 69 10^3/uL (130-400); RED CELL DISTRIBUTION WIDTH 13.2 % (10.0-14.5); WHITE BLOOD COUNT 4.9 10^3/uL (4.3-11.0)
[2019-03-27 14:11] LABS: ALANINE AMINOTRANSFERASE 15 U/L (0-55); ALBUMIN 3.4 GM/DL (3.2-4.5); ALKALINE PHOSPHATASE 142 U/L (40-136); BILIRUBIN,TOTAL 1.8 MG/DL (0.1-1.0); BUN/CREATININE RATIO 19; CALCIUM 11.5 MG/DL (8.5-10.1); CARBON DIOXIDE 25 MMOL/L (21-32); CHLORIDE 104 MMOL/L (98-107); CREATININE SERUM 0.79 MG/DL (0.60-1.30); GFR ESTIMATED > 60; GLUCOSE 104 MG/DL (70-105); POTASSIUM 4.5 MMOL/L (3.6-5.0); SODIUM 137 MMOL/L (135-145); TOTAL PROTEIN 7.7 GM/DL (6.4-8.2)
[~2019-05-01 13:13] MED LIST changes: +DENOSUMAB 60 MG/1 ML (PROLIA) CANCER CTR SQ SCH; +NS IV ONE; +PAMIDRONATE IV ONE
[2019-05-01 13:31] LABS: BASOPHILS % (AUTO) 1 % (0-10); EOSINOPHILS # (AUTO) 0.1 10^3/uL (0.0-0.3); EOSINOPHILS % (AUTO) 1 % (0-10); HEMATOCRIT 41 % (35-52); HEMOGLOBIN 14.4 G/DL (11.5-16.0); LYMPHOCYTES # (AUTO) 1.6 X 10^3 (1.0-4.0); LYMPHOCYTES % (AUTO) 30 % (12-44); MEAN CORPUSCULAR HEMOGLOBIN 34 PG (25-34); MEAN CORPUSCULAR HGB CONC 35 G/DL (32-36); MEAN CORPUSCULAR VOLUME 98 FL (80-99); MEAN PLATELET VOLUME 11.9 FL (7.4-10.4); MONOCYTES # (AUTO) 0.8 X 10^3 (0.0-1.0); MONOCYTES % (AUTO) 15 % (0-12); NEUTROPHILS # (AUTO) 2.9 X 10^3 (1.8-7.8); NEUTROPHILS % (AUTO) 54 % (42-75); PLATELET COUNT 59 10^3/uL (130-400); RED CELL DISTRIBUTION WIDTH 13.1 % (10.0-14.5); WHITE BLOOD COUNT 5.4 10^3/uL (4.3-11.0)
[2019-05-01 13:48] LABS: ALANINE AMINOTRANSFERASE 20 U/L (0-55); ALBUMIN 3.5 GM/DL (3.2-4.5); ALKALINE PHOSPHATASE 120 U/L (40-136); BILIRUBIN,TOTAL 1.8 MG/DL (0.1-1.0); BUN/CREATININE RATIO 18; CALCIUM 11.3 MG/DL (8.5-10.1); CARBON DIOXIDE 24 MMOL/L (21-32); CHLORIDE 104 MMOL/L (98-107); CREATININE SERUM 0.89 MG/DL (0.60-1.30); GFR ESTIMATED > 60; GLUCOSE 98 MG/DL (70-105); POTASSIUM 3.9 MMOL/L (3.6-5.0); SODIUM 135 MMOL/L (135-145); TOTAL PROTEIN 7.9 GM/DL (6.4-8.2)
== END 2019-05-15 | disposition home or self-care (01) ==
LOC: ONC 13:13
PROVIDERS: ATTEND Internal Medicine Hematology & Oncology
DX: C22.0 Liver cell carcinoma (principal); D69.59 Other secondary thrombocytopenia; E83.52 Hypercalcemia; F10.20 Alcohol dependence, uncomplicated; B18.2 Chronic viral hepatitis C; R16.0 Hepatomegaly, not elsewhere classified; Z79.899 Other long term (current) drug therapy
CPT/HCPCS: 36415; 80053; 82105; 85025; 96365; 96366; 99213

== ENCOUNTER → 2019-05-05 | Outpatient (CLI) | payer MEDICAID, OTHER ==
[~2019-05-05] MED LIST changes: -DENOSUMAB 60 MG/1 ML (PROLIA) CANCER CTR SQ SCH; -NS IV ONE; -PAMIDRONATE IV ONE
[2019-05-05 21:09] LABS: BILIRUBIN,URINE NEGATIVE (NEGATIVE); CLARITY,URINE CLEAR; COLOR,URINE YELLOW; GLUCOSE, URINE (UA) NEGATIVE (NEGATIVE); KETONES,URINE NEGATIVE (NEGATIVE); LEUKOCYTE ESTERASE ,URINE 2+ (NEGATIVE); NITRITE,URINE NEGATIVE (NEGATIVE); PH,URINE 5 (5-9); PROTEIN,URINE NEGATIVE (NEGATIVE); UROBILINOGEN,URINE 1 MG/DL (NORMAL)
[2019-05-05 21:18] LABS: BACTERIA,URINE FEW /HPF; CALCIUM OXALATE CRYSTALS,UR FEW /LPF
== END ==
LOC: CVS 20:56
PROVIDERS: ATTEND Nurse Practitioner Adult Health
DX: R35.0 Frequency of micturition (principal)
CPT/HCPCS: 81000; 87088

== ENCOUNTER 2019-07-03 14:44 | Outpatient (RCR) | payer MEDICAID ==
[2019-07-03 14:59] LABS: BASOPHILS % (AUTO) 1 % (0-10); EOSINOPHILS # (AUTO) 0.1 10^3/uL (0.0-0.3); EOSINOPHILS % (AUTO) 1 % (0-10); HEMATOCRIT 41 % (35-52); HEMOGLOBIN 14.1 G/DL (11.5-16.0); LYMPHOCYTES # (AUTO) 1.2 X 10^3 (1.0-4.0); LYMPHOCYTES % (AUTO) 24 % (12-44); MEAN CORPUSCULAR HEMOGLOBIN 34 PG (25-34); MEAN CORPUSCULAR HGB CONC 35 G/DL (32-36); MEAN CORPUSCULAR VOLUME 98 FL (80-99); MONOCYTES # (AUTO) 0.7 X 10^3 (0.0-1.0); MONOCYTES % (AUTO) 15 % (0-12); NEUTROPHILS # (AUTO) 2.9 X 10^3 (1.8-7.8); NEUTROPHILS % (AUTO) 59 % (42-75); PLATELET COUNT 62 10^3/uL (130-400); RED CELL DISTRIBUTION WIDTH 13.3 % (10.0-14.5); WHITE BLOOD COUNT 4.9 10^3/uL (4.3-11.0)
[2019-07-03 15:19] LABS: ALANINE AMINOTRANSFERASE 23 U/L (0-55); ALBUMIN 3.5 GM/DL (3.2-4.5); ALKALINE PHOSPHATASE 94 U/L (40-136); BILIRUBIN,TOTAL 2.1 MG/DL (0.1-1.0); BUN/CREATININE RATIO 20; CALCIUM 11.1 MG/DL (8.5-10.1); CARBON DIOXIDE 24 MMOL/L (21-32); CHLORIDE 105 MMOL/L (98-107); CREATININE SERUM 0.79 MG/DL (0.60-1.30); GFR ESTIMATED > 60; GLUCOSE 98 MG/DL (70-105); POTASSIUM 4.1 MMOL/L (3.6-5.0); SODIUM 136 MMOL/L (135-145); TOTAL PROTEIN 7.2 GM/DL (6.4-8.2)
== END 2019-10-01 14:13 | disposition home or self-care (01) ==
LOC: ONC 14:44
PROVIDERS: ATTEND Internal Medicine Hematology & Oncology
DX: C22.0 Liver cell carcinoma (principal); D69.59 Other secondary thrombocytopenia; E83.52 Hypercalcemia; F10.20 Alcohol dependence, uncomplicated; B18.2 Chronic viral hepatitis C; R16.0 Hepatomegaly, not elsewhere classified; Z79.899 Other long term (current) drug therapy; I10 Essential (primary) hypertension; Z92.3 Personal history of irradiation
CPT/HCPCS: 80053; 82105; 85025; 99213

== ENCOUNTER → 2019-07-15 | Outpatient (CLI) | payer MEDICAID ==
--- NOTE | 2019-07-15 11:48 | Diagnostic Imaging Report ---
INDICATION: Screening for osteoporosis. COMPARISON: None. FINDINGS: The bone mineral density of the hips and spine was measured. COMPARISON: There are no prior studies available for comparison. FINDINGS: The T score for the spine is -3.7. This does indicate osteoporosis. The T score for the left hip is -1.5 and for the left femoral neck -1.8. The total T score for the right hip is -2.3 and for the right femoral neck -2.4. All of these values fall within the range of osteopenia. AP Spine L1-L4: [BMD (g/cm2): 0.757] [T-Score: -3.7] [Z-Score: -1.8] [BMD Previous: na] [BMD % Change: na] LT Hip Neck: [BMD (g/cm2): 0.785] [T-Score: -1.8] [Z-Score: -0.2] LT Hip Total: [BMD (g/cm2):0.815] [T-Score:-1.5] [Z-Score: -0.1] [BMD Previous: na] [BMD % Change: na] RT Hip Neck: [BMD (g/cm2):0.704] [T-Score:-2.4] [Z-Score:-0.8] RT Hip Total: [BMD (g/cm2):0.716] [T-score:-2.3] [Z-Score:-0.9] [BMD Previous:na] [BMD % Change:na] *Indicates significant change from prior examination based on 95% confidence level. World Health Organization criteria for BMD interpretation classify patients as Normal (T-score at or above -1.0), Osteopenic (T-score between -1.0 and -2.5) or Osteoporotic (T-score at or below -2.5). LIMITATIONS AND MODIFICATION: None. FRACTURE RISK (FRAX SCORE): The ten year probability of (%): Major Osteoporotic Fracture: [12.3] Hip Fracture: [2.5] IMPRESSION: 1. The bone mineral density of the spine indicates osteoporosis. 2. There is osteopenia of the left hip and severe osteopenia of the right hip. 3. See below National Osteoporosis Foundation guidelines on when to potentially initiate pharmacologic therapy. Based on the National Osteoporosis Foundation Guidelines, pharmacologic treatment should be initiated in any of the following, unless clinical conditions suggest otherwise: * Any patient with prior fragility fracture of the hip or vertebrae. A spine fracture indicates 5X risk for subsequent spine fracture and 2X risk for subsequent hip fracture. * Osteoporosis (T-score <-2.5). * Postmenopausal women and men age 50 and older with low bone mass/osteopenia (T-score between -1.0 and -2.5) by DXA and 10-year major osteoporotic fracture greater than 20% or a 10-year probability of hip fracture greater than 3%. These fracture risks are supplied above in the FRAX score, if applicable. * Clinician judgement and/or patient preferences may indicate treatment for people with 10-year fracture probabilities above or below these levels. Dictated by: Dictated on workstation # [id number]
== END ==
LOC: RAD 09:35
PROVIDERS: ATTEND Internal Medicine Endocrinology, Diabetes & Metabolism
DX: Z13.820 Encounter for screening for osteoporosis (principal); M85.89 Other specified disorders of bone density and structure, multiple sites; E83.52 Hypercalcemia; E04.1 Nontoxic single thyroid nodule; Z78.0 Asymptomatic menopausal state
CPT/HCPCS: 77080

== ENCOUNTER 2019-10-02 14:59 | Outpatient (RCR) | payer MEDICAID ==
[2019-10-02 15:12] LABS: BASOPHILS % (AUTO) 0 % (0-10); EOSINOPHILS # (AUTO) 0.1 10^3/uL (0.0-0.3); EOSINOPHILS % (AUTO) 2 % (0-10); HEMATOCRIT 40 % (35-52); HEMOGLOBIN 14.1 G/DL (11.5-16.0); LYMPHOCYTES # (AUTO) 1.6 X 10^3 (1.0-4.0); LYMPHOCYTES % (AUTO) 28 % (12-44); MEAN CORPUSCULAR HEMOGLOBIN 35 PG (25-34); MEAN CORPUSCULAR HGB CONC 35 G/DL (32-36); MEAN CORPUSCULAR VOLUME 98 FL (80-99); MEAN PLATELET VOLUME 12.2 FL (7.4-10.4); MONOCYTES # (AUTO) 0.7 X 10^3 (0.0-1.0); MONOCYTES % (AUTO) 12 % (0-12); NEUTROPHILS # (AUTO) 3.3 X 10^3 (1.8-7.8); NEUTROPHILS % (AUTO) 58 % (42-75); PLATELET COUNT 61 10^3/uL (130-400); RED CELL DISTRIBUTION WIDTH 13.5 % (10.0-14.5); WHITE BLOOD COUNT 5.7 10^3/uL (4.3-11.0)
[2019-10-02 15:33] LABS: ALANINE AMINOTRANSFERASE 15 U/L (0-55); ALBUMIN 3.7 GM/DL (3.2-4.5); ALKALINE PHOSPHATASE 101 U/L (40-136); BILIRUBIN,TOTAL 2.6 MG/DL (0.1-1.0); BUN/CREATININE RATIO 20; CALCIUM 9.2 MG/DL (8.5-10.1); CARBON DIOXIDE 24 MMOL/L (21-32); CHLORIDE 105 MMOL/L (98-107); CREATININE SERUM 0.87 MG/DL (0.60-1.30); GFR ESTIMATED > 60; GLUCOSE 90 MG/DL (70-105); POTASSIUM 3.9 MMOL/L (3.6-5.0); SODIUM 138 MMOL/L (135-145); TOTAL PROTEIN 7.4 GM/DL (6.4-8.2)
== END 2019-12-08 10:27 | disposition home or self-care (01) ==
LOC: ONC 14:59
PROVIDERS: ATTEND Internal Medicine Hematology & Oncology
DX: C22.0 Liver cell carcinoma (principal); D69.59 Other secondary thrombocytopenia; E83.52 Hypercalcemia; F10.20 Alcohol dependence, uncomplicated; B18.2 Chronic viral hepatitis C; R16.0 Hepatomegaly, not elsewhere classified; Z79.899 Other long term (current) drug therapy; I10 Essential (primary) hypertension; Z92.3 Personal history of irradiation; Z90.89 Acquired absence of other organs
CPT/HCPCS: 80053; 82105; 85025; 99213

== ENCOUNTER 2019-10-09 22:48 | Emergency (ER) | payer MEDICAID ==
[~2019-10-09] VITALS: Ht 152 cm; Wt 55.0 kg
[2019-10-09] MEDS ORDERED: LACTATED RINGERS 1,000 ML IV ONE (23:02)
--- NOTE | 2019-10-09 23:24 | ED General ---
General Chief Complaint: General Problems/Pain Stated Complaint: POST OP INF Source of Information: Patient, EMS History of Present Illness Date Seen by Provider: Oct 09, 2019 Time Seen by Provider: 22:49 Initial Comments PT ARRIVES VIA EMS FROM [facility] PT WAS DX WITH THYROID CANCER 08/2019 AND HAD RIGHT PARATHYROIDECTOMY AND RIGHT HALF OF THYROID REMOVED AT ON 09/18/19. PT WAS AT TODAY FOR FOLLOW UP, AND HAD "SCOPE" OF HER THROAT, AND WAS TOLD SHE "AHD INFECTION" --HAD A LARGE AMOUNT OF PURULENT DRAINAGE REMOVED FROM THE WOUND TO ANTERIOR NECK, BUT NO RX GIVEN AND IS NOT CURRENTLY ON ANTIBIOTICS HAS REDNESS AND SWELLING TO THE WOUND. PT HAS HAD NAUSEA ALL DAY AND VOMITED X 1 TONIGHT AT 2200, WHEN NURSE AT [facility] CAME TO CHECK ON HER PT HAS HAD FEVER ALL EVENING--WAS 101.9 PRIOR TO ARRIVAL--TOOK OXYCODONE CONTAINING ACETAMINOPHEN PRIOR TO ARRIVAL NO COUGH NO CHEST PAIN NO INCREASED NECK PAIN OR DIFFICULTY SWALLOWING STATES SHE IS ALWAYS SHORT OF BREATH, AND IS NO DIFFERENT TONIGHT--DOES NOT WEAR HOME O2 PT STATES SHE IS TO HAVE THE OTHER HALF OF HER THYROID REMOVED 10/23/19 PT WAS ALSO DX WITH LIVER CANCER IN 2015 AND HAD "CHEMO BEADS" PLACED IN HER LIVER--PT STATES "THEY DIDN'T GET ALL OF IT--THEY ARE JUST WATCHING IT NOW" Allergies and Home Medications Allergies Coded Allergies: No Known Drug Allergies (Unverified , 11/14/16) Home Medications Cefdinir 300 Mg Capsule, 300 MG PO BID Prescribed by: JOEY OLMEDO on 06/06/18 0946 Furosemide 20 Mg Tablet, 20 MG PO DAILY, (Reported) Spironolactone 100 Mg Tablet, 100 MG PO DAILY, (Reported) Patient Home Medication List Home Medication List Reviewed: Yes Review of Systems Review of Systems Constitutional: see HPI, fever EENTM: see HPI Respiratory: no symptoms reported; No cough, No short of breath, No wheezing Cardiovascular: no symptoms reported Gastrointestinal: no symptoms reported Genitourinary: no symptoms reported Musculoskeletal: no symptoms reported Skin: see HPI Psychiatric/Neurological: No Symptoms Reported Hematologic/Lymphatic: No Symptoms Reported Immunological/Allergic: no symptoms reported Past Twsrplm-Mywnok-Qqvqwv Hx Past Med/Social Hx: Reviewed and Corrections made Patient Social History Alcohol Use: Past History (HEAVY, DAILY USE OF WHISKEY--QUIT 2015) Recreational Drug Use: No Smoking Status: Former Smoker 2nd Hand Smoke Exposure: No Recent Foreign Travel: No Contact w/Someone Who Travel: No Recent Hopitalizations: No Immunizations Up To Date Date of Pneumonia Vaccine: May 30, 1998 Seasonal Allergies Seasonal Allergies: No Past Medical History Surgeries: Yes (DENTAL SURGERY; R PARATHYROIDS + R THYROIDECTOMY AT [facility] 09/18/19) Thyroidectomy Respiratory: No Cardiac: Yes Hypertension Neurological: Yes (TREMORS) Genitourinary: No Gastrointestinal: Yes (LIVER CANCER DX 2016-S/P "CHEMO BEADS" IN LIVER; HEPATITIS C ) Hepatitis, Cirrhosis Musculoskeletal: Yes Scoliosis Endocrine: Yes (THYROID CANCER DX 08/2019) HEENT: No Cancer: Yes (LIVER CANCER DX 2015; THYROID CANCER DX 08/2019) Liver, Thyroid Did You Recieve Any Treatments: Yes (LIVER-"CHEMO BEADS: R THYROID + PARATHYROID REMOVAL 09/18/2019) What Type of Treatment Did You: Chemotherapy, Surgical Intervention Psychosocial: No Integumentary: No Blood Disorders: Yes (HEP C) Adverse Reaction/Blood Tranf: No Family Medical History Patient reports no known family medical history. No Pertinent Family Hx PER PT, REGARDING LIVER CANCER--STATES "CHEMO BEADS" WERE PLACED IN LIVER, BUT STATES "THEY DIDN'T GET ALL OF IT, SO THEY ARE JUST WATCHING IT FOR NOW"--PER PT 10/09/19 Physical Exam Vital Signs Vital Signs - First Documented 10/09/19 10/10/19 23:15 06:35 Temp 37.7 Pulse 103 Resp 20 B/P (MAP) 118/79 Pulse Ox 97 O2 Delivery Nasal Cannula O2 Flow Rate 2.00 Capillary Refill : Height, Weight, BMI Height: 5'6.00" Weight: 114lbs. 0.0oz. 51.580905xl; 18.4 BMI Method:Stated General Appearance: No Apparent Distress, Thin HEENT: PERRL/EOMI, TMs Normal, Normal ENT Inspection, Pharynx Normal Neck: Full Range of Motion, Other (INCISION TO ANTERIOR NECK, WITH SCANT AMOUNT OF DRIED SEROUS DRAINAGE TO RIGHT END OF WOUND, BUT WOUND IS INTACT. PT HAS MODERATE SWELLING AND SIGNIFICANT ERYTHEMA AND WARMTH AROUND THE WOUND, EXTENDING DOWN TO MID AND LEFT UPPER CHEST. AREA IS FIRM, NO FLUCTUANCE. NO STREAKS. ) Respiratory: Normal Breath Sounds, No Accessory Muscle Use, No Respiratory Distress Cardiovascular: Regular Rate, Rhythm, No Edema, No JVD, No Murmur, Normal Peripheral Pulses Gastrointestinal: Non Tender, Soft Back: No CVA Tenderness Extremity: Normal Capillary Refill, Normal Inspection, Normal Range of Motion, Non Tender, No Calf Tenderness, No Pedal Edema Neurologic/Psychiatric: Alert, Oriented x3, No Motor/Sensory Deficits, Normal Mood/Affect, tire center supervisor II-XII Norm as Tested, Other (RESTING TREMOR--MOSLTY IN HANDS) Skin: Normal Color, Warm/Dry, Other ( ABOVE) Focused Exam Lactate Level 10/09/19 23:13: Lactic Acid Level 2.30*H 10/10/19 01:10: Lactic Acid Level 1.69 Lactic Acid Level Progress/Results/Core Measures Suspected Sepsis SIRS Temperature: Pulse: Respiratory Rate: Laboratory Tests 10/09/19 23:13: White Blood Count 10.1 Blood Pressure / Mean: 10/09/19 23:13: Lactic Acid Level 2.30*H 10/10/19 01:10: Lactic Acid Level 1.69 Laboratory Tests 10/09/19 23:13: Creatinine 0.86, INR Comment 1.3, Platelet Count 51L, Total Bilirubin 3.0H Results/Orders Lab Results Laboratory Tests Test 10/09/19 23:13 10/09/19 23:58 10/10/19 01:10 Range/Units White Blood Count 10.1 4.3-11.0 10^3/uL Red Blood Count 4.22 L 4.35-5.85 10^6/uL Hemoglobin 14.5 11.5-16.0 G/DL Hematocrit 41 35-52 % Mean Corpuscular Volume 97 80-99 FL Mean Corpuscular Hemoglobin 34 25-34 PG Mean Corpuscular Hemoglobin Concent 36 32-36 G/DL Red Cell Distribution Width 13.6 10.0-14.5 % Platelet Count 51 L 130-400 10^3/uL Mean Platelet Volume 12.3 H 7.4-10.4 FL Neutrophils (%) (Auto) 80 H 42-75 % Lymphocytes (%) (Auto) 6 L 12-44 % Monocytes (%) (Auto) 13 H 0-12 % Eosinophils (%) (Auto) 0 0-10 % Basophils (%) (Auto) 0 0-10 % Neutrophils # (Auto) 8.1 H 1.8-7.8 X 10^3 Lymphocytes # (Auto) 0.6 L 1.0-4.0 X 10^3 Monocytes # (Auto) 1.3 H 0.0-1.0 X 10^3 Eosinophils # (Auto) 0.0 0.0-0.3 10^3/uL Basophils # (Auto) 0.0 0.0-0.1 10^3/uL Neutrophils % (Manual) 82 % Lymphocytes % (Manual) 4 % Monocytes % (Manual) 14 % Blood Morphology Comment NORMAL Prothrombin Time 16.5 H 12.2-14.7 SEC INR Comment 1.3 0.8-1.4 Activated Partial Thromboplast Time 35 24-35 SEC Sodium Level 134 L 135-145 MMOL/L Potassium Level 4.0 3.6-5.0 MMOL/L Chloride Level 105 98-107 MMOL/L Carbon Dioxide Level 17 L 21-32 MMOL/L Anion Gap 12 5-14 MMOL/L Blood Urea Nitrogen 15 7-18 MG/DL Creatinine 0.86 0.60-1.30 MG/DL Estimat Glomerular Filtration Rate > 60 BUN/Creatinine Ratio 17 Glucose Level 116 H 70-105 MG/DL Lactic Acid Level 2.30 *H 1.69 0.50-2.00 MMOL/L Calcium Level 8.4 L 8.5-10.1 MG/DL Corrected Calcium 8.7 8.5-10.1 MG/DL Magnesium Level 1.5 L 1.6-2.4 MG/DL Total Bilirubin 3.0 H 0.1-1.0 MG/DL Aspartate Amino Transf (AST/SGOT) 35 H 5-34 U/L Alanine Aminotransferase (ALT/SGPT) 18 0-55 U/L Alkaline Phosphatase 103 40-136 U/L Total Protein 7.1 6.4-8.2 GM/DL Albumin 3.6 3.2-4.5 GM/DL Procalcitonin 0.07 <0.10 NG/ML TSH [place] Testing 2.34 0.35-4.94 UIU/ML Urine Color ORANGE Urine Clarity CLOUDY Urine pH 5.5 5-9 Urine Specific [place] >=1.030 1.016-1.022 Urine Protein 1+ H NEGATIVE Urine Glucose (UA) NEGATIVE NEGATIVE Urine Ketones TRACE H NEGATIVE Urine Nitrite NEGATIVE NEGATIVE Urine Bilirubin 1+ H NEGATIVE Urine Urobilinogen 1.0 < = 1.0 MG/DL Urine Leukocyte Esterase 2+ H NEGATIVE Urine RBC (Auto) 1+ H NEGATIVE Urine RBC 2-5 H /HPF Urine WBC TNTC H /HPF Urine Squamous Epithelial Cells 25-50 H /HPF Urine Crystals NONE /LPF Urine Bacteria MODERATE H /HPF Urine Casts NONE /LPF Urine Mucus SMALL H /LPF Urine Culture Indicated CULTURE PENDING Micro Results Microbiology 10/09/19 Urine Culture - Final, Complete 3 or more isolates 10/09/19 Blood Culture - Preliminary, Resulted No growth 10/09/19 Influenza Types A,B Antigen (RAY) - Final, Complete 10/09/19 Blood Culture - Preliminary, Resulted No growth My Orders Orders - MACARENA OLMSTEAD DO Cbc With Automated Diff (10/09/19:) Comprehensive Metabolic Panel (10/09/19 23:02) Blood Culture (10/09/19 23:02) Urinalysis (10/09/19 23:) Urine Culture (10/09/19:02) Protime With Inr (10/09/19:) Partial Thromboplastin Time (10/09/19 23:02) Chest 1 View, Ap/Pa Only (10/09/19 23:02) Ed Iv/Invasive Line Start (10/09/19 23:02) Vital Signs Adult Sepsis Patie Q15M (10/09/19 23:02) Remove Rings In Anticipation O (10/09/19 23:02) Lactic Acid Analyzer (10/09/19 23:02) Influenza A And B Antigens (10/09/19 23:02) Magnesium (10/09/19 23:02) Thyroid Analyzer (10/09/19 23:02) Ed Iv/Invasive Line Start (10/09/19 23:02) Lactated Ringers (Lr 1000 Ml Iv Solution (10/09/19 23:02) Manual Differential (10/09/19 23:13) Ct Neck (Soft Tissue) W (10/10/19 00:01) Cefepime Injection (Maxipime Injection) (10/10/19 01:00) Vancomycin Injection (Vancomycin Injecti (10/10/19 01:00) Iohexol Injection (Omnipaque 350 Mg/Ml 1 (10/10/19 01:00) Received Contrast (Hold Metformin- Contr (10/10/19 01:00) Ns (Ivpb) (Sodium Chloride 0.9% Ivpb Bag (10/10/19 01:00) Magnesium Oxide Tablet (Mag Ox Tablet) (10/10/19 01:00) Calcium Chloride 10% Injection (Calcium (10/10/19 01:00) Procalcitonin (Pct) (10/10/19 01:29) Ed Iv/Invasive Line Start (10/10/19 01:43) Ns Iv 1000 Ml (Sodium Chloride 0.9%) (10/10/19 01:43) Ed Iv/Invasive Line Start (10/10/19 01:49) Ns Iv 1000 Ml (Sodium Chloride 0.9%) (10/10/19 01:49) Magnesium Oxide Tablet (Mag Ox Tablet) (10/10/19 01:14) Calcium Chloride 10% Injection (Calcium (10/10/19 01:31) Ns Iv 1000 Ml (Sodium Chloride 0.9%) (10/10/19 01:44) Ed Iv/Invasive Line Start (10/10/19 06:15) Lactated Ringers (Lr 1000 Ml Iv Solution (10/10/19 06:15) Medications Given in ED Vital Signs/I&O Capillary Refill : Progress Note : Progress Note PT WAS GIVEN 3 LITERS OF FLUIDS, WITH IMPROVEMENT IN BP'S TO >100 SYSTOLIC GIVEN MAGNESIUM AND IV CALCIUM GIVEN CEFEPIME AND VANCOMYCIN UNEVENTFUL ER STAY PT HAD NO COMPLAINTS FOR ENTIRE ER STAY VITALS STABLE AT TIME OF TRANSFER, AND TEMP DOWN. Diagnostic Imaging Comments CXR--NO ACUTE PROCESS, PENDING RADIOLOGIST REVIEW CT NECK SOFT TISSUES--SOFT TISSUE FLUID COLLECTION TO ANTERIOR NECK SUB Q TISSUES AT LEVEL OF THYROID BED 3 X 2.7 X 1 CM IN DIAMETER--SEROMA VS ABSCESS--PER RADIOLOGIST VIA PHONE AT [phone], AND VIA FAX AT [phone] Reviewed: Reviewed by Me Departure Communication (Admissions) 134--CALLED DR. OLMEDO, HOSPITALIST FILM LOADER FOR [facility]. SHE ADVISES TRANSFER TO , IT IS RELATED TO SURGICAL WOUND INFECTION 136--CALLED [facility]. WILL CALL BACK 226--[facility] CALLED BACK. PT HAS BEEN ACCEPTED BY HER ONCOLOGY/SURGEON, DR. WALLACE. [facility] NOTIFIED OF NEED FOR TRANSFER, AND THEY WILL BE SENDING A CREW OUT SHORTLY 316--RECEIVED CALL FROM DENEEN [facility] SHIFT CAPTAIN, HE IS NOW REFUSING TRANSPORT OF THIS PT UNTIL NEXT SHIFT COMES ON, SOMETIME AFTER 0800. CONTACTED [facility] AND [facility]. NEITHER CAN TRANSPORT AT THIS TIME. 342--SPOKE WITH DENEEN FROM [facility] AGAIN. HE WILL SEE ABOUT GETTING TRANSFER CREW HERE BEFORE 0800, IF POSSIBLE. Impression Primary Impression: SURGICAL WOUND INFECTION OF NECK Additional Impressions: Sepsis UTI (urinary tract infection) Thyroid cancer Hypoxia Hypomagnesemia Hypocalcemia Disposition: XF [facility]-TRM HOSP Condition: Stable Transfer Transfer Reason: Exceeds level of care (PT'S SURGEON IS AT AND PT IS HAVING SURGICAL RELATED ISSUE) Transfer Facility: [facility] Method of Transfer: EMS Departure-Patient Inst. Referrals: ARMAND RODRIGUEZ MD (PCP/Family) Primary Care Physician MACARENA OLMSTEAD DO Oct 09, 2019 23:24
[2019-10-09 23:25] LABS: BASOPHILS % (AUTO) 0 % (0-10); EOSINOPHILS % (AUTO) 0 % (0-10); HEMATOCRIT 41 % (35-52); HEMOGLOBIN 14.5 G/DL (11.5-16.0); LYMPHOCYTES # (AUTO) 0.6 X 10^3 (1.0-4.0); LYMPHOCYTES % (AUTO) 6 % (12-44); MEAN CORPUSCULAR HEMOGLOBIN 34 PG (25-34); MEAN CORPUSCULAR HGB CONC 36 G/DL (32-36); MEAN CORPUSCULAR VOLUME 97 FL (80-99); MEAN PLATELET VOLUME 12.3 FL (7.4-10.4); MONOCYTES # (AUTO) 1.3 X 10^3 (0.0-1.0); MONOCYTES % (AUTO) 13 % (0-12); NEUTROPHILS # (AUTO) 8.1 X 10^3 (1.8-7.8); NEUTROPHILS % (AUTO) 80 % (42-75); PLATELET COUNT 51 10^3/uL (130-400); RED CELL DISTRIBUTION WIDTH 13.6 % (10.0-14.5); WHITE BLOOD COUNT 10.1 10^3/uL (4.3-11.0)
[2019-10-09 23:43] LABS: ALANINE AMINOTRANSFERASE 18 U/L (0-55); ALBUMIN 3.6 GM/DL (3.2-4.5); ALKALINE PHOSPHATASE 103 U/L (40-136); BUN/CREATININE RATIO 17; CALCIUM 8.4 MG/DL (8.5-10.1); CARBON DIOXIDE 17 MMOL/L (21-32); CHLORIDE 105 MMOL/L (98-107); CREATININE SERUM 0.86 MG/DL (0.60-1.30); GFR ESTIMATED > 60; GLUCOSE 116 MG/DL (70-105); MAGNESIUM 1.5 MG/DL (1.6-2.4); SODIUM 134 MMOL/L (135-145); TOTAL PROTEIN 7.1 GM/DL (6.4-8.2)
--- NOTE | 2019-10-09 23:50 | NUR ---
Pt assisted to bedside commode at this time. Call light in reach, privacy provided.
[2019-10-09 23:57] LABS: INR 1.3 (0.8-1.4); PROTHROMBIN TIME PATIENT 16.5 SEC (12.2-14.7)
[2019-10-10 00:03] LABS: TSH (THYROID ANALYZER) 2.34 UIU/ML (0.35-4.94)
[2019-10-10 00:06] LABS: CLARITY,URINE CLOUDY; COLOR,URINE ORANGE; GLUCOSE, URINE (UA) NEGATIVE (NEGATIVE); KETONES,URINE TRACE (NEGATIVE); LEUKOCYTE ESTERASE ,URINE 2+ (NEGATIVE); NITRITE,URINE NEGATIVE (NEGATIVE); PH,URINE 5.5 (5-9); PROTEIN,URINE 1+ (NEGATIVE)
[2019-10-10 00:19] LABS: BACTERIA,URINE MODERATE /HPF; SQUAMOUS EPITHELIAL CELL,UR 25-50 /HPF; WBC,URINE TNTC /HPF
[2019-10-10 00:21] LABS: BILIRUBIN,URINE 1+ (NEGATIVE)
[2019-10-10 00:27] LABS: LYMPHOCYTES % (MANUAL) 4 %; MONOCYTES % (MANUAL) 14 %; NEUTROPHILS % (MANUAL) 82 %; RBC MORPH NORMAL
[2019-10-10] MEDS ORDERED: VANCOMYCIN INJECTION 1,000 MG in NS (IVPB) 250 ML IV ONE (01:00)
[2019-10-10] MEDS ORDERED: CALCIUM CHLORIDE 1 GM/10 ML (IMS) SYR IV ONE (01:00)
[2019-10-10] MEDS ORDERED: IOHEXOL 350 MG/ML 100 ML (OMNIPAQUE 350) VIAL IV ONE (01:00)
[2019-10-10] MEDS ORDERED: NS 100 ML (IVPB) BAG IV ONE (01:00)
[2019-10-10] MEDS ORDERED: HOLD METFORMIN - RECEIVED CONTRAST 20 ML VIAL IV SCH (01:00)
[2019-10-10] MEDS ORDERED: MAGNESIUM OXIDE (MAG-OX)400 MG TAB PO ONE (01:00)
[2019-10-10] MEDS ORDERED: CEFEPIME INJECTION 2,000 MG in WATER (STERILE) FOR INJECTION 20 ML IV ONE (01:00)
[2019-10-10] MEDS ORDERED: MAGNESIUM OXIDE (MAG-OX)400 MG TAB ONE (01:14)
[2019-10-10] MEDS ORDERED: CALCIUM CHLORIDE 1 GM/10 ML (IMS) SYR ONE (01:31)
[2019-10-10] MEDS ORDERED: NS IV 1000 ML 1,000 ML IV ONE (01:43)
[2019-10-10] MEDS ORDERED: NS IV 1000 ML 1,000 ML ONE (01:44)
[2019-10-10] MEDS ORDERED: NS IV 1000 ML 1,000 ML IV SCH (01:49)
--- NOTE | 2019-10-10 03:10 | NUR ---
[facility] refused transfer to . Miguel, shift captain states "the timing is incovenient and puts his crew at risk waking them up at this hour".
--- NOTE | 2019-10-10 03:30 | NUR ---
Pt notified of transfer delay, pt resting in bed. Vitals stable
[2019-10-10] MEDS ORDERED: LACTATED RINGERS 1,000 ML IV ONE (06:15)
[2019-10-10 06:35] VITALS: BP 118/79
--- NOTE | 2019-10-10 06:41 | Diagnostic Imaging Report ---
PROCEDURE: CT neck soft tissue with contrast. TECHNIQUE: Multiple contiguous axial images were obtained through the neck after the administration of contrast. Auto Exposure Controls were utilized during the CT exam to meet ALARA standards for radiation dose reduction. INDICATION: Fever and history of thyroid cancer and recent thyroidectomy on 09/18/2019 FINDINGS: The visualized intracranial structures are unremarkable. The frontal, ethmoid, sphenoid, and maxillary sinuses are clear. The nasopharyngeal, oropharyngeal and hypopharyngeal tissues are symmetric and without mass effect. The lung apices are clear. The parotid and submandibular glands are normal in appearance. There is a subcutaneous fluid collection superficial of the thyroid gland measuring 2.7 x 3 x 1 cm. The left lobe of the thyroid appears to have been removed. The major vascular structures of the neck enhance in a normal fashion. The prevertebral soft tissues are within normal limits. The epiglottis is unremarkable. There are degenerative changes in the cervical spine. The globes and intraorbital structures are unremarkable. The nasal bones are intact. IMPRESSION: Subcutaneous fluid collection superficial to the thyroid gland as described. This may reflect either postop seroma or abscess. Recommend clinical correlation and if warranted this would be amenable to percutaneous drainage. There appear to be postsurgical changes of a left thyroidectomy. No other acute abnormality in the neck Dictated by: Dictated on workstation # [id number]
--- NOTE | 2019-10-10 06:53 | Diagnostic Imaging Report ---
INDICATION: Fever and infection. Comparison made with prior examination 06/05/2018 FINDINGS: There is cardiomegaly. There is right convexity thoracic scoliosis. Lungs are clear. There is no pleural effusion or pneumothorax. Mediastinum is unremarkable. IMPRESSION: No acute cardiopulmonary abnormality. Cardiomegaly. Dictated by: Dictated on workstation # [id number]
== END 2019-10-10 06:37 | disposition short-term general hospital (02) ==
LOC: EDUNIT# 22:48 → ER 22:49
DX: T81.40XA Infection following a procedure, unspecified, initial encounter (principal); A41.9 Sepsis, unspecified organism; C73 Malignant neoplasm of thyroid gland; N39.0 Urinary tract infection, site not specified; R09.02 Hypoxemia; E83.42 Hypomagnesemia; E83.51 Hypocalcemia; I10 Essential (primary) hypertension; Z85.05 Personal history of malignant neoplasm of liver; Z87.891 Personal history of nicotine dependence
CPT/HCPCS: 36415; 70491; 71045; 80053; 81000; 83605; 83735; 84145; 84443; 85007; 85027; 85610; 85730; 87040; 87088; 87804

== ENCOUNTER 2019-12-08 10:29 | Outpatient (RCR) | payer MEDICARE, MEDICAID ==
[2020-01-12] MEDS ORDERED: MELA3TAB39 PO (14:28)
[2020-01-12] MEDS ORDERED: MAG355OR23 PO (14:28)
[2020-01-12] MEDS ORDERED: ONDA-105 PO (14:28)
[2020-01-12] MEDS ORDERED: CALC200T50 PO (14:28)
[2020-01-12] MEDS ORDERED: DOCU100C59 PO (14:28)
[2020-01-12] MEDS ORDERED: LEVO50TA6 PO (14:28)
[2020-01-12] MEDS ORDERED: SPIR100T PO (14:28)
[2020-01-12] MEDS ORDERED: CHOL20003 PO (14:28)
[2020-01-12] MEDS ORDERED: OXYC5TAB96 PO (14:28)
[2020-01-12] MEDS ORDERED: POLY17PO6 PO (14:28)
[2020-01-12] MEDS ORDERED: PRIM50TA33 PO (14:28)
[2020-01-12] MEDS ORDERED: ACET325T38 PO (14:28)
[2020-01-12] MEDS ORDERED: FURO20TA4 PO (14:28)
== END 2020-01-14 | disposition home or self-care (01) ==
LOC: ONC 10:29
PROVIDERS: ATTEND Internal Medicine Hematology & Oncology
DX: C22.0 Liver cell carcinoma (principal); D69.59 Other secondary thrombocytopenia; E83.52 Hypercalcemia; F10.20 Alcohol dependence, uncomplicated; B18.2 Chronic viral hepatitis C; R16.0 Hepatomegaly, not elsewhere classified; Z79.899 Other long term (current) drug therapy; I10 Essential (primary) hypertension; Z92.3 Personal history of irradiation; Z90.89 Acquired absence of other organs
CPT/HCPCS: 99213